=== PATIENT | female | born 1975 | race Caucasian/White ===

== ENCOUNTER → 2018-05-24 14:22 | Outpatient (CLI) | payer OTHER, SELFPAY ==
--- NOTE | 2018-05-24 | DI.MRI.S_ITS ---
PROCEDURE: MR CERVICAL SPINE WO CON INDICATIONS: CERVICALGIA TECHNIQUE: Noncontrast sagittal T1 spin echo and T2 fast spin echo, sagittal STIR, foraminal oblique sagittal T2 fast spin echo, and axial gradient echo or T2 fast spin echo through the cervical spine. COMPARISON: None. FINDINGS: Image quality: Diagnostic, with note made of motion artifact. Alignment and Curvature: There is normal bony alignment. Bone Marrow: Marrow demonstrates normal overall signal. Spinal Cord: Visualized spinal cord has normal size and signal. No cerebellar tonsillar herniation. Paraspinous Soft Tissues: No paravertebral masses. Prevertebral soft tissues are normal in thickness. C2-C3: Normal appearance. C3-C4: The disc height is well-preserved. Loss of disc signal is seen at this level. A mild degree of generalized disc osteophyte complex is seen. Mild facet joint hypertrophy is seen. Mild bilateral neural foraminal narrowing is seen. No significant central canal narrowing is seen. C4-C5: Mild loss of disc height is seen. Loss of disc signal is seen. A mild degree of generalized disc osteophyte complex is seen. There is moderate right-sided and mild left-sided neural foraminal narrowing seen. Minimal central canal narrowing is seen at this level. C5-C6: Mild loss of disc height is seen. Loss of disc signal is seen. Mild to moderate disc osteophyte complex is seen, which is eccentric to the left. There is a focal central/left disc osteophyte protrusion, as on series 5 image 31. Mild bilateral neural foraminal narrowing is seen. Moderate central canal narrowing is seen, with minimal mass effect upon the ventral spinal cord. C6-C7: Normal appearance. C7-T1: Normal appearance. IMPRESSION: Cervical spine degenerative changes are seen, which are overall most prominent at the C5-C6 level, where there is a central/left disc osteophyte protrusion. Dictated by: Juan Pablo Gonzalez M.D. on 05/24/2018 at 14:51 Approved by: Juan Pablo Gonzalez M.D. on 05/24/2018 at 14:57
== END ==
PROVIDERS: Visit Provider General Practice
DX: M50.322 Other cervical disc degeneration at C5-C6 level (principal)
CPT/HCPCS: 72141

== ENCOUNTER 2018-10-29 20:37 | Emergency (ER) | payer OTHER, SELFPAY ==
--- NOTE | 2018-10-29 20:41 | ED.ARRPALP ---
HPI - Arrhythmia/Palpitations <Ariella Reyes PA-C - Last Filed: 10/29/18 21:53> General Chief Complaint: Arrhythmia/Palpitations Stated Complaint: says signs of tachycardia Time Seen by Provider: 10/29/18 20:39 Source: patient Mode of arrival: ambulatory Limitations: no limitations History of Present Illness HPI narrative: This 43-year-old female comes in due to tachycardia. She states that she saw a neurologist at [facility] today due to neck injury that occurred in April and was told that her heart rate was high, about 125 all day. She states she had a pain management appointment about an hour later and heart rate was down a little bit, 109-116 range. She states that she did not take her Lyrica and Flexeril earlier due to needing to drive to her appointments as they can make her sleepy. She states that when she got home her heart rate was 90-low 100 range, and better now that she took her medications a few hours ago, however she called the nurse line and they told her this needed to be evaluated within 8 hr so came here for testing. She states that other than feeling somewhat more tired lately, she does not have any new symptoms. She states that she has neck pain and some headache/pressure. She gets that with her neck injury and not unusual, also thinks not taking her medicines earlier probably contributes. She states that before her neck injury, she had a resting heart rate in the 50s, however states she has gained about 60 lb due to medications and inability to exercise as usual. She is otherwise healthy, denies any possibility of and has implant in her arm. Denies any chest pain, palpitations (noted on her fit bit and from taking her pulse), or dyspnea. She has not had any new pain or swelling in her extremities. She does have some chronic tingling in her fingers after the neck injury. Regular medications include nexplanon implant, Lyrica 75 mg t.i.d., nortriptyline 50 mg HS, and Flexeril t.i.d. She has no family history of early heart disease. There is a family history of blood clots in her sister in the setting of lower extremity fractures and immobility with complications, no others. Review of Systems <Ariella Reyes PA-C - Last Filed: 10/29/18 21:53> Review of Systems ROS Unobtainable: All systems reviewed & are unremarkable except as noted in HPI and below PFSH <JIMBO Rivera Last Filed: 10/29/18 21:53> Medical History History of neck injury (Chronic) Surgical History Status post lumbar spinal fusion (Chronic) Family History Other No pertinent family history Family History Other No pertinent family history Comment: Never smoker, ETOH or street drug Exam <Ariella Reyes PA-C - Last Filed: 10/29/18 21:53> Narrative Exam Narrative: GENERAL APPEARANCE: Patient sitting comfortably, in no distress. HEENT: PERRL, EOMI NECK/THYROID: Neck supple, no JVD. LUNGS: Clear to auscultation bilaterally. HEART: Regular rate and rhythm without murmur, normal S1, S2, no S3 or S4. ABDOMEN: Soft, NT, ND, + BS x 4 quadrants EXTREMITIES: No cyanosis or edema. No calf tenderness NEUROLOGIC: Alert and oriented, normal speech, gait and coordination. Initial Vital Signs Initial Vital Signs: Vital Signs Pulse Rate 88 10/29/18 21:44 Respiratory Rate 18 10/29/18 21:44 Blood Pressure 114/76 10/29/18 21:44 Pulse Oximetry 98 10/29/18 21:44 <Amren Lynn DO - Last Filed: 10/29/18 22:39> Initial Vital Signs Initial Vital Signs: Vital Signs Pulse Rate 88 10/29/18 21:44 Respiratory Rate 18 10/29/18 21:44 Blood Pressure 114/76 10/29/18 21:44 Pulse Oximetry 98 10/29/18 21:44 Course <Ariella Reyes PA-C - Last Filed: 10/29/18 21:53> Additional Information: Patient's pulse rates were in the 70s-80s range after walking through the department when initially put on the monitor. She has been completely asymptomatic, this was noted coincidentally at her appointments today. This coincides with her being off of her p.m. doses of Lyrica and Flexeril, and may correlate with stress of her appointments and increased pain related to that. Advised continuing her usual medications and following up with [facility] in the next 1-2 days for recheck as she may need further workup if symptoms persist. Also reviewed need to return if acute changes, and she is agreeable with this plan. Orders Ordered: ED Orders 10/29/18 20:44 EKG-12 Lead Stat 10/29/18 21:00 Basic Metabolic Panel Stat Complete Blood Count AUTO DIFF Stat Magnesium Stat Vital Signs - 8 hr 10/29/18 21:44 Pulse Rate 88 Respiratory Rate 18 Blood Pressure 114/76 Pulse Oximetry 98 <Armen Lynn DO - Last Filed: 10/29/18 22:39> Orders Ordered: ED Orders 10/29/18 20:44 EKG-12 Lead Stat 10/29/18 21:00 Basic Metabolic Panel Stat Complete Blood Count AUTO DIFF Stat Magnesium Stat Vital Signs - 8 hr 10/29/18 21:44 Pulse Rate 88 Respiratory Rate 18 Blood Pressure 114/76 Pulse Oximetry 98 MDM - Arrhythmia/Palpitations <Ariella Reyes PA-C - Last Filed: 10/29/18 21:53> Lab Data Attestation: I reviewed the patient's lab results. Result diagrams: 10/29/18 21:00 10/29/18 21:00 Lab Results 10/29/18 10/29/18 Range/Units 21:00 21:00 WBC 8.2 (4.5-11.0) X10^3/uL RBC 4.41 (4.0-5.2) X10^6/uL Hgb 13.5 (12.0-16.0) g/dL Hct 41.2 (36-46) % MCV 93.3 (80-100) fL MCH 30.6 (26-34) PG MCHC 32.7 (30-36) % RDW 12.8 (11.6-14.8) % Plt Count 325 (150-400) X10^3/uL Neut % (Auto) 56.2 (50-75) % Lymph % (Auto) 33.2 (25-40) % Fajardo % (Auto) 8.0 (3-14) % Eos % (Auto) 1.7 L (2-4) % Baso % (Auto) 0.9 (0-2) % Neut # (Auto) 4600 (6575-6213) /uL Lymph # (Auto) 2700 (2988-5758) /uL Fajardo # (Auto) 700 (0-900) /uL Eos # (Auto) 100 (0-450) /uL Baso # (Auto) 100 (0-100) /uL Sodium 138 (137-145) mmol/L Potassium 4.0 (3.4-5.1) mmol/L Chloride 104 (98-107) mmol/L Carbon Dioxide 26 (22-32) mmol/L BUN 18 H (7-17) mg/dL Creatinine 0.80 (0.52-1.04) mg/dL Estimated GFR > 60.0 (>60) mL/min BUN/Creatinine Ratio 22.5 H (6-22) Glucose 96 (70-100) mg/dL Calcium 9.0 (8.4-10.2) mg/dL Magnesium 2.0 (1.6-2.3) mg/dL Point of Care Testing Test Results Negative Urine Dip Bedside Urine Glucose Negative Bedside Urine Bilirubin - Negative Bedside Urine Ketone - Negative Urine Specific Quincy 1.020 Bedside Urine Occult Blood - Negative Bedside Urine pH 6.0 Bedside Urine Protein - Negative Bedside Urine Urobilinogen - Negative Bedside Urine Nitrite - Negative Bedside Urine Leukocytes - Negative Esterase ECG Data Attestation: I personally reviewed and interpreted this ECG as follows: (Normal sinus rhythm , rate 86, isoelectric left axis) Prior ECG tracings: not available for review <Armen Lynn DO - Last Filed: 10/29/18 22:39> Lab Data Lab Results 10/29/18 10/29/18 Range/Units 21:00 21:00 WBC 8.2 (4.5-11.0) X10^3/uL RBC 4.41 (4.0-5.2) X10^6/uL Hgb 13.5 (12.0-16.0) g/dL Hct 41.2 (36-46) % MCV 93.3 (80-100) fL MCH 30.6 (26-34) PG MCHC 32.7 (30-36) % RDW 12.8 (11.6-14.8) % Plt Count 325 (150-400) X10^3/uL Neut % (Auto) 56.2 (50-75) % Lymph % (Auto) 33.2 (25-40) % Fajardo % (Auto) 8.0 (3-14) % Eos % (Auto) 1.7 L (2-4) % Baso % (Auto) 0.9 (0-2) % Neut # (Auto) 4600 (1408-9929) /uL Lymph # (Auto) 2700 (0566-4465) /uL Fajardo # (Auto) 700 (0-900) /uL Eos # (Auto) 100 (0-450) /uL Baso # (Auto) 100 (0-100) /uL Sodium 138 (137-145) mmol/L Potassium 4.0 (3.4-5.1) mmol/L Chloride 104 (98-107) mmol/L Carbon Dioxide 26 (22-32) mmol/L BUN 18 H (7-17) mg/dL Creatinine 0.80 (0.52-1.04) mg/dL Estimated GFR > 60.0 (>60) mL/min BUN/Creatinine Ratio 22.5 H (6-22) Glucose 96 (70-100) mg/dL Calcium 9.0 (8.4-10.2) mg/dL Magnesium 2.0 (1.6-2.3) mg/dL Point of Care Testing Test Results Negative Urine Dip Bedside Urine Glucose Negative Bedside Urine Bilirubin - Negative Bedside Urine Ketone - Negative Urine Specific Quin[place] 1.020 Bedside Urine Occult Blood - Negative Bedside Urine pH 6.0 Bedside Urine Protein - Negative Bedside Urine Urobilinogen - Negative Bedside Urine Nitrite - Negative Bedside Urine Leukocytes - Negative Esterase Discharge Plan Departure Patient Disposition: Home Clinical Impression: Sinus tachycardia Discharge Date/Time: 10/29/18 21:45 Interventions: ED Discharge Assessment Last Done: 10/29/18 21:44 Instructions: DI for Tachycardia Activity Restrictions/Additional Instructions: The reason for your faster heart rate especially earlier today is not clear. This may be a natural response to not being on your usual dose of pain medications with increased pain and the stress of your appointments. There was no acute problem found on your EKG or lab work, and I think this will be easier to determine when you are back on your usual medication doses for a day. As we talked about, you should return if you have any new symptoms such as chest discomfort or palpitations, chest pain or difficulty breathing. Otherwise, please follow-up with [facility] in a couple of days as you may need further lab work and testing if you do have persistent fast heart rate. Please take the copy of the EKG I gave you to your appointment Referrals: [facility] [Provider Group] <Armen Lynn, DO - Last Filed: 10/29/18 22:39> Cosign ED Attending Cosvinceature Attestation: I was immediately available in the department for consultation. Documentation has been reviewed. I agree with assessment and plan.
[2018-10-29 21:09] LABS: Add Manual Diff / Slide Review NO; Basophils Absolute Auto 100 /uL (0-100); Basophils Percent Auto 0.9 % (0-2); Eosinophils Absolute Auto 100 /uL (0-450); Eosinophils Percent Auto 1.7 % (2-4); Hematocrit 41.2 % (36-46); Hemoglobin 13.5 g/dL (12.0-16.0); Lymphocytes Absolute Auto 2700 /uL (1100-4500); Lymphocytes Percent Auto 33.2 % (25-40); Mean Corpuscular HGB Conc 32.7 % (30-36); Mean Corpuscular Hemoglobin 30.6 PG (26-34); Mean Corpuscular Volume 93.3 fL (80-100); Monocytes Absolute Auto 700 /uL (0-900); Neutrophils Absolute Auto 4600 /uL (1500-7000); Neutrophils Percent Auto 56.2 % (50-75); Platelet Count 325 X10^3/uL (150-400); Red Blood Cell Count 4.41 X10^6/uL (4.0-5.2); Red Cell Distribution Width 12.8 % (11.6-14.8); White Blood Cell Count 8.2 X10^3/uL (4.5-11.0)
[2018-10-29 21:19] LABS: BUN Creatinine Ratio 22.5 (6-22); Blood Urea Nitrogen 18 mg/dL (7-17); Carbon Dioxide 26 mmol/L (22-32); Chloride 104 mmol/L (98-107); Estimated Glomerular Filt Rate > 60.0 mL/min (>60); Glucose 96 mg/dL (70-100); HEMOLYSIS < 15 (0-50); Sodium 138 mmol/L (137-145)
[2018-10-29 21:44] VITALS: BP 114/76; PULSE 88; RESP 18; O2SAT 98
== END 2018-10-29 21:45 | disposition home or self-care (01) ==
PROVIDERS: Emergency Provider Internal Medicine
DX: R00.0 Tachycardia, unspecified (principal)
CPT/HCPCS: 36415; 80048; 81003; 81025; 83735; 85025; 93005; 99283; 99284

== ENCOUNTER → 2019-07-02 14:53 | Outpatient (CLI) | payer OTHER, SELFPAY ==
--- NOTE | 2019-07-02 | DI.MG.S_ITS ---
BILATERAL DIGITAL SCREENING MAMMOGRAM 3D/2D WITH CAD: 07/02/2019 CLINICAL: Routine screening. Comparison is made to exams dated: 08/11/2014 mammogram, 03/09/2015 mammogram - [facility], and 04/09/2017 mammogram - [facility]. The tissue of both breasts is heterogeneously dense. This may lower the sensitivity of mammography. Current study was also evaluated with a Computer Aided Detection (CAD) system. There are new grouped fine calcifications in the right breast at 12 o'clock middle depth. No other significant masses, calcifications, or other findings are seen in either breast. IMPRESSION: INCOMPLETE: NEEDS ADDITIONAL IMAGING EVALUATION The new grouped fine calcifications in the right breast are indeterminate. Mediolateral, spot magnification, and additional views are recommended. This exam was interpreted at Station ID: [id number]. NOTE: For mammograms, a report in lay terms will be sent to the patient. Approximately 15% of breast malignancies will not be visualized mammographically. In the management of a palpable breast mass, a negative mammogram must not discourage biopsy of a clinically suspicious lesion. Electronically Signed By: Kingsley bedoya/sandrita:07/02/2019 16:23:14 letter sent: Additional Imaging Needed ACR BI-RADS Category 0: Incomplete [id number]
== END ==
PROVIDERS: Visit Provider General Practice
DX: Z12.31 Encounter for screening mammogram for malignant neoplasm of breast (principal)
CPT/HCPCS: 77063; 77067

== ENCOUNTER → 2019-07-29 12:17 | Outpatient (CLI) | payer OTHER, SELFPAY ==
--- NOTE | 2019-07-29 | DI.MG.S_ITS ---
UNILATERAL RIGHT DIGITAL DIAGNOSTIC MAMMOGRAM 3D/2D WITH ADDITIONAL VIEWS: 07/29/2019 CLINICAL: Additional evaluation requested from prior study. Comparison is made to exams dated: 07/02/2019 mammogram - [facility], 04/09/2017 mammogram - [facility], and 03/09/2015 mammogram - [facility]. The tissue of right breast is heterogeneously dense. This may lower the sensitivity of mammography. There are new grouped fine round calcifications in the right breast at 12 o'clock middle depth. No other significant masses or calcifications are seen in the breast. IMPRESSION: INCOMPLETE: NEEDS ADDITIONAL IMAGING EVALUATION The new grouped fine round calcifications in the right breast are indeterminate. An ultrasound is recommended and will immediately follow. This exam was interpreted at Station ID: [id number]. NOTE: For mammograms, a report in lay terms will be sent to the patient. Approximately 15% of breast malignancies will not be visualized mammographically. In the management of a palpable breast mass, a negative mammogram must not discourage biopsy of a clinically suspicious lesion. Electronically Signed By: Vinod Paez M.D. slc/:07/29/2019 13:47:20 ACR BI-RADS Category 0: Incomplete 3340F
--- NOTE | 2019-07-29 | DI.US.S_ITS ---
LIMITED ULTRASOUND OF RIGHT BREAST: 07/29/2019 CLINICAL: Patient returns today to evaluate a focal asymmetry in the right breast. Comparison is made to exams dated: 07/29/2019 mammogram, 07/02/2019 mammogram - , 04/09/2017 mammogram - [facility], 03/09/2015 mammogram, and 08/11/2014 mammogram - [facility]. Real-time ultrasound of the right breast 12 o'clock region was performed. Wright scale images of the real-time examination were reviewed. No significant abnormalities were seen sonographically in the right breast in the region of new calcifications seen on mammogram. IMPRESSION: PROBABLY BENIGN No sonographic abnormality. A follow-up mammogram in 6 months is recommended to demonstrate stability of the new fine and round grouped calcifications in the right breast. Exam result and recommendation were conveyed to the patient by the creative engagement director. This exam was interpreted at Station ID: [id number]. Electronically Signed By: Vinod Paez M.D. slc/:07/29/2019 13:52:07 letter sent: Followup Recommended Ultrasound BI-RADS: 3 Probably benign
== END ==
PROVIDERS: Visit Provider General Practice
DX: R92.8 Other abnormal and inconclusive findings on diagnostic imaging of breast (principal); R92.1 Mammographic calcification found on diagnostic imaging of breast
CPT/HCPCS: 76642; 77065; G0279

== ENCOUNTER 2019-11-20 08:15 | Outpatient (RCR) | payer OTHER, SELFPAY ==
--- NOTE | 2019-07-30 16:29 | PT.OIE ---
Current Diagnoses Sprain of ligaments of cervical spine, initial encounter (07/30/19) Past Medical History (Last Updated 10/29/18 @ 20:59 by Ariella Reyes PA-C) History of neck injury (Chronic) Past Surgical History (Last Updated 10/29/18 @ 20:59 by Ariella Reyes PA-C) Status post lumbar spinal fusion (Chronic) Visit Care Team Role Provider Type Pelon Bates MD Primary Care Provider Non-Staff Specialty: Family Practice Address: [address] [place] [address], [id number] Email: Judie Osorio MD Attending Provider Non-Staff Specialty: Medical Address: [address] [place] [address], [id number] Email: Physical Therapy Initial Evaluation PT-OP-A Visit Information Start: 07/30/19 12:16 Freq: Status: Active Protocol: Document 07/30/19 12:20 MB (Rec: 07/30/19 13:05 MB [id number]) Out-Patient Physical Therapy Visit Information Visit Information Visit Type Initial Evaluation Visit Note 1 eval, 12 visits Visit Start Time 12:20 Visit Stop Time 13:00 Total Visit Minutes 40 Visit Number 09/22 PT-OP-B Current Condition Start: 07/30/19 12:16 Freq: Status: Active Protocol: Document 07/30/19 12:20 MB (Rec: 07/30/19 13:05 MB [id number]) Current Condition History of Current Condition Onset Date 05/01/2018 History of Current Condition Pt went to DO for work-up for migraines. She had high velocity manipulation to her cervical spine and then started having severe neck pain on 05/11/18. She went to the ED and had a pain injection and Oxycontin. She started having vertigo. She did not drive much for 2 months. 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 She has been doing rehab for her neck strength. In May 2018, she started have right hand paresthesia and weakness. She ended up having ulnar nerve transposition 11/26. She then went to OT and got her strength back. She had ablation of C3-7 nerve roots to help with pain relief and increase neck ROM. Her headaches are not better. Her neck ROM is better. She now knows that neck is causing migraines. She is seeing a pain specialist and he performed the ablation 06/02/19. He suggested pt see vestibular PT . Her migraine symptoms are: pressure occiput and wrap up over her head and pull on her brain. She feels her teeth quite often. Her Lyrica was doubled. She has constant SIFUENTES. Pt has nightmares about cracking of joints with relation to her injury. Sleeping is fitful. Bending over makes her the most dizzy. She states that she feels the dizziness when she goes to get back up. She feels like her head gets overpressured. Changing positions can get her. Leaning too far forward is troublesome. She feels like she needs to push herself into something to get tactile sensation. She feels like she needs to get a hold of herself. Pt reports pain rated 2-4 in her right arm and 4-7 in her neck. Jarring in car hurts her . She does report light- headedness. Her eyes feel tired. She had some floaters in the past. She denies hearing changes, tinnitus and dizziness rolling in the bed. She has sinus issues. She reports jaw tightness. She takes a B12 supplement and she had a deficiency. Pt reports she has trust issues with providers after the DO manipulation. She has occ numbness and tingling in right arm. She has shoulder lock-ups. Prior Treatments and Tests OT, PT MRI head and pt reports negative MRI/MRA head and neck with and without contrast Treatment Goals Patient/Caregiver Goals To get better, get back to work PT-OP-C Subjective Start: 07/30/19 12:16 Freq: Status: Active Protocol: Document 07/30/19 12:20 MB (Rec: 07/30/19 16:09 MB [id number]) Patient Questionnaires Dizziness Handicap Inventory DHI Functional Impairment 40 to 59% Impaired (Score 40- 59) OP-PT Pain Assessment Comments Pain Comments See history of current condition for pain comments PT-OP-K Range of Motion Start: 07/30/19 12:16 Freq: Status: Active Protocol: Document 07/30/19 12:20 MB (Rec: 07/30/19 16:27 MB [id number]) Cervical Spine Range of Motion Cervical Spine Active Flexion 30 Extension 15 Rotation Left 40 Rotation Right 45 Comments Pt reports 5-6/10 pain with cervical extensio. She presents with left SB posture at rest that increases with left cervical rotation PT-OP-M Strength Start: 07/30/19 12:16 Freq: Status: Active Protocol: Document 07/30/19 12:20 MB (Rec: 07/30/19 16:27 MB [id number]) Shoulder Strength Shoulder Manual Muscle Testing Left Flexion 5 Normal Abduction (C5) 5 Normal Right Flexion 4 Good Abduction (C5) 4 Good Elbow/Forearm Strength Elbow and Forearm Manual Muscle Testing Left Flexion (C6) 5 Normal Extension (C7) 5 Normal Pronation 5 Normal Supination 5 Normal Right Flexion (C6) 5 Normal Extension (C7) 5 Normal Pronation 4 Good Supination 4 Good Wrist Strength Wrist Manual Muscle Testing Left Flexion (C7) 5 Normal Extension (C6) 5 Normal Right Flexion (C7) 5 Normal Extension (C6) 4 Good PT-OP-O Vestibular Start: 07/30/19 16:27 Freq: Status: Active Protocol: Document 07/30/19 12:20 MB (Rec: 07/30/19 16:29 MB [id number]) Vestibular Assessment Visual Testing Smooth Pursuits Horizontal Normal Smooth Pursuits Vertical Normal Saccades Horizontal Normal Gaze Evoked Nystagmus With Fixation Negative Convergence Test Impaired Spontaneous Nystagmus Negative Comments Vestibular Comments Pt denies tinnitus and hearing changes. She does state that she has sinus issues and teeth pain, mostly upper teeth. She states she clenches her jaw. PT-OP-T Assessment and Plan Start: 07/30/19 12:16 Freq: Status: Active Protocol: Document 07/30/19 12:20 MB (Rec: 07/30/19 16:05 MB [id number]) Physical Therapy Assessment Rehab Potential Rehabilitation Potential Fair Evaluation Complexity Number of Personal Factors/Comorbidities 3 or More Number of Body Systems Impaired 4 or More Clinical Presentation at Evaluation Unstable Impairments Impairments Activity Tolerance,Balance, Coordination,Pain,Posture,ROM, Strength,Vestibular Other Impairments Decreased affect, inability to perform full work duties, occ difficulty driving d/t symptoms, taking multiple medications. Body systems include musculoskeletal, vestibular, psychosocial, neurological s/p nerve ablation. Her clinical picture is evolving to unstable. Goals 6 Manager Architecture Goal (LTG) Pt will present with right shoulder flexion and abduction and right wrist supination, pronation and extension strength to 5/5 by 09/29/19. LTG Duration 8 weeks 5 [facility] Goal (LTG) Pt will perform progressive HEP including postural, VOR, intrascapular, core and shoulder strengthening, breathing and relaxation and balance exercises by 09/29/19. LTG Duration 8 weeks 4 Manager Architecture Goal (LTG) Pt will report a 50% improvement in dizziness sxs by 09/29/19. LTG Duration 8 weeks 3 Manager Architecture Goal (LTG) Pt will report a 50% improvement in neck pain by . LTG Duration 8 weeks 2 Manager Architecture Goal (LTG) Pt will perform WNLs on a standardized balance test by . LTG Duration 8 weeks 1 Impairment DHI reflects moderate perception of handicap Manager Architecture Goal (LTG) Pt will present with an improved DHI score to reflect no more than mild perception of handicap by 09/29/19. LTG Duration 8 weeks Assessment Summary Assessment Pt is a 44 y/o female presenting with complicated onset of migraines, neck pain, right UE pain and improving paresthesia and dizziness. She reports neck and UE symptoms and dizziness started after she was treated with a high velocity manipulation to her neck. She has had extensive medical work-ups and has received a right ulnar nerve surgery as well as reports of cervical spine nerve ablation. This date, PT does not have any dxs or op notes available. PT assessment triaged this date. Pt present with B dilated pupils, right greater than left. She has left greater than right convergence reduction with oculomotor testing. Finger to nose and saccades are normal. Pt presents with R UE weakness. Given her sxs of dizziness with bending over and standing back up, will check for orthostatics in future treatment dates. Will assess balance with CTSIB and other tests as she can tolerate. Pt reports she has trouble trusting providers since her injury and this therapist will introduce VOR work as appropriate. She will benefit from PT for vestibular intervention, gentle fascial intervention, progressive exercise including VOR, postural, strengthening, relaxation and breathing. She states that she does not really have dizziness with rolling in bed and so PT is less likely concerned about BPPV. Will con't to monitor her sxs. Physical Therapy Plan Frequency and Duration Frequency of Treatment 2x/Week Duration of Treatment 8 weeks Plan of Care Start Date 07/30/19 Plan of Care End Date 09/29/19 Therapeutic Interventions Therapeutic Interventions Balance Training,Canalithic Repositioning,Coordination Training,Home Exercise Program ,Manual Therapy,Neuromuscular Re-education,Patient/Caregiver Education,Self-Care/Home Management,Sensory Integration ,Soft Tissue Mobilization, Taping,Therapeutic Exercises, Vestibular Rehabilitation Next Visit Focus/Plan Next Note Type Treatment Note Next Visit Plan CTSIB and check orthostatic BP
--- NOTE | 2019-08-04 12:13 | PT.OTN ---
Current Diagnoses Sprain of ligaments of cervical spine, initial encounter (08/04/19) Physical Therapy Treatment Note PT-OP-A Visit Information Start: 07/30/19 12:16 Freq: Status: Active Protocol: Document 08/04/19 10:27 MB (Rec: 08/04/19 12:13 MB [id number]) Out-Patient Physical Therapy Visit Information Visit Information Visit Type Treatment Note Visit Start Time 10:27 Visit Stop Time 11:20 Total Visit Minutes 53 Visit Number 10/23 PT-OP-B Current Condition Start: 07/30/19 12:16 Freq: Status: Active Protocol: Document 07/30/19 12:20 MB (Rec: 07/30/19 13:05 MB [id number]) Current Condition History of Current Condition Onset Date 05/01/2018 History of Current Condition Pt went to DO for work-up for migraines. She had high velocity manipulation to her cervical spine and then started having severe neck pain on 05/11/18. She went to the ED and had a pain injection and Oxycontin. She started having vertigo. She did not drive much for 2 months. 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 She has been doing rehab for her neck strength. In May 2018, she started have right hand paresthesia and weakness. She ended up having ulnar nerve transposition 11/26. She then went to OT and got her strength back. She had ablation of C3-7 nerve roots to help with pain relief and increase neck ROM. Her headaches are not better. Her neck ROM is better. She now knows that neck is causing migraines. She is seeing a pain specialist and he performed the ablation 06/02/19. He suggested pt see vestibular PT . Her migraine symptoms are: pressure occiput and wrap up over her head and pull on her brain. She feels her teeth quite often. Her Lyrica was doubled. She has constant SIFUENTES. Pt has nightmares about cracking of joints with relation to her injury. Sleeping is fitful. Bending over makes her the most dizzy. She states that she feels the dizziness when she goes to get back up. She feels like her head gets overpressured. Changing positions can get her. Leaning too far forward is troublesome. She feels like she needs to push herself into something to get tactile sensation. She feels like she needs to get a hold of herself. Pt reports pain rated 2-4 in her right arm and 4-7 in her neck. Jarring in car hurts her . She does report light- headedness. Her eyes feel tired. She had some floaters in the past. She denies hearing changes, tinnitus and dizziness rolling in the bed. She has sinus issues. She reports jaw tightness. She takes a B12 supplement and she had a deficiency. Pt reports she has trust issues with providers after the DO manipulation. She has occ numbness and tingling in right arm. She has shoulder lock-ups. Prior Treatments and Tests OT, PT MRI head and pt reports negative MRI/MRA head and neck with and without contrast Treatment Goals Patient/Caregiver Goals To get better, get back to work PT-OP-C Subjective Start: 07/30/19 12:16 Freq: Status: Active Protocol: Document 08/04/19 10:27 MB (Rec: 08/04/19 12:13 MB [id number]) OP-PT Subjective Patient Comments Patient Comments Pt states that she had a pretty low [place] weekend. PT-OP-K Range of Motion Start: 07/30/19 12:16 Freq: Status: Active Protocol: Document 07/30/19 12:20 MB (Rec: 07/30/19 16:27 MB [id number]) Cervical Spine Range of Motion Cervical Spine Active Flexion 30 Extension 15 Rotation Left 40 Rotation Right 45 Comments Pt reports 5-6/10 pain with cervical extensio. She presents with left SB posture at rest that increases with left cervical rotation PT-OP-M Strength Start: 07/30/19 12:16 Freq: Status: Active Protocol: Document 07/30/19 12:20 MB (Rec: 07/30/19 16:27 MB [id number]) Shoulder Strength Shoulder Manual Muscle Testing Left Flexion 5 Normal Abduction (C5) 5 Normal Right Flexion 4 Good Abduction (C5) 4 Good Elbow/Forearm Strength Elbow and Forearm Manual Muscle Testing Left Flexion (C6) 5 Normal Extension (C7) 5 Normal Pronation 5 Normal Supination 5 Normal Right Flexion (C6) 5 Normal Extension (C7) 5 Normal Pronation 4 Good Supination 4 Good Wrist Strength Wrist Manual Muscle Testing Left Flexion (C7) 5 Normal Extension (C6) 5 Normal Right Flexion (C7) 5 Normal Extension (C6) 4 Good PT-OP-O Vestibular Start: 07/30/19 16:27 Freq: Status: Active Protocol: Document 07/30/19 12:20 MB (Rec: 07/30/19 16:29 MB [id number]) Vestibular Assessment Visual Testing Smooth Pursuits Horizontal Normal Smooth Pursuits Vertical Normal Saccades Horizontal Normal Gaze Evoked Nystagmus With Fixation Negative Convergence Test Impaired Spontaneous Nystagmus Negative Comments Vestibular Comments Pt denies tinnitus and hearing changes. She does state that she has sinus issues and teeth pain, mostly upper teeth. She states she clenches her jaw. PT-OP-Q Treatments Start: 07/30/19 12:16 Freq: Status: Active Protocol: Document 08/04/19 10:27 MB (Rec: 08/04/19 12:13 MB [id number]) Therapeutic Activity Therapeutic Activity Assessment orthostatics, log roll Comments +2 asst for safety with getting up quickly. See assessment comments for findings. Modified CTSIB this date with most problems when closing eyes Self-Care/Home Management Treatment Education Other Education Provided handouts and extensive ed: orthostatic hypotension, increase non- caffeinated fluid intake and decrease caffeine intake; Counterstrain benefits--need to review further before treatment and will do this when treatment initiated; VOR, how vestibular system works with balance, brain and eyes, why see a PT for dizziness and the VOR PT-OP-T Assessment and Plan Start: 07/30/19 12:16 Freq: Status: Active Protocol: Document 08/04/19 10:27 MB (Rec: 08/04/19 12:13 MB [id number]) Physical Therapy Assessment Rehab Potential Rehabilitation Potential Fair Evaluation Complexity Number of Personal Factors/Comorbidities 3 or More Number of Body Systems Impaired 4 or More Clinical Presentation at Evaluation Unstable Impairments Impairments Activity Tolerance,Balance, Coordination,Pain,Posture,ROM, Strength,Vestibular Other Impairments Decreased affect, inability to perform full work duties, occ difficulty driving d/t symptoms, taking multiple medications. Body systems include musculoskeletal, vestibular, psychosocial, neurological s/p nerve ablation. Her clinical picture is evolving to unstable. Goals 6 Mixed Animal Veterinarian Goal (LTG) Pt will present with right shoulder flexion and abduction and right wrist supination, pronation and extension strength to 5/5 by 09/29/19. LTG Duration 8 weeks 5 Senior Living Goal (LTG) Pt will perform progressive HEP including postural, VOR, intrascapular, core and shoulder strengthening, breathing and relaxation and balance exercises by 09/29/19. LTG Duration 8 weeks 4 Senior Living Goal (LTG) Pt will report a 50% improvement in dizziness sxs by 09/29/19. LTG Duration 8 weeks 3 Mixed Animal Veterinarian Goal (LTG) Pt will report a 50% improvement in neck pain by . LTG Duration 8 weeks 2 Mixed Animal Veterinarian Goal (LTG) Pt will perform WNLs on a standardized balance test by . LTG Duration 8 weeks 1 Impairment DHI reflects moderate perception of handicap Mixed Animal Veterinarian Goal (LTG) Pt will present with an improved DHI score to reflect no more than mild perception of handicap by 09/29/19. LTG Duration 8 weeks Assessment Summary Assessment Modified CTSIB: Romberg normal ; Romberg eyes closed with LOB to the right after 3 sec and PT asst to prevent fall; increased imbalance unstable surface; EO when LOB when tried eyes closed. Orthostatic assessment: L proximal UE with BP and HR: supine: 104/75 , 59; standin/89, 75 and pt reports increased pressure head; standing 30 sec 111/83, 82; standing 1' 99/83, 89; standing 90 sec: 104/86, 87; standing 2': 107/83, 77. Pt drinks a lot of caffeine at home. She likes coffee. VOR Head Thrust: positive for hypofunction B, greater on the left. Pt has multi-factorial causes of dizziness: fluctuating BP, VOR hypofunction and likely cervicogenic given nature of onset of symptoms as well as some trauma components. Con't vestibular work-up and initiate breathing and relaxation exercises. Physical Therapy Plan Frequency and Duration Frequency of Treatment 2x/Week Duration of Treatment 8 weeks Plan of Care Start Date 07/30/19 Plan of Care End Date 09/29/19 Therapeutic Interventions Therapeutic Interventions Balance Training,Canalithic Repositioning,Coordination Training,Home Exercise Program ,Manual Therapy,Neuromuscular Re-education,Patient/Caregiver Education,Self-Care/Home Management,Sensory Integration ,Soft Tissue Mobilization, Taping,Therapeutic Exercises, Vestibular Rehabilitation Next Visit Focus/Plan Next Note Type Treatment Note Next Visit Plan Progress HEP, checking VOR, initiate relaxation exercises
--- NOTE | 2019-08-06 11:18 | PT.OTN ---
Current Diagnoses Sprain of ligaments of cervical spine, initial encounter (08/06/19) Physical Therapy Treatment Note PT-OP-A Visit Information Start: 07/30/19 12:16 Freq: Status: Active Protocol: Document 08/06/19 10:32 MB (Rec: 08/06/19 11:17 MB [id number]) Out-Patient Physical Therapy Visit Information Visit Information Visit Type Treatment Note Visit Start Time 10:32 Visit Stop Time 11:12 Total Visit Minutes 40 Visit Number 11/20 PT-OP-B Current Condition Start: 07/30/19 12:16 Freq: Status: Active Protocol: Document 07/30/19 12:20 MB (Rec: 07/30/19 13:05 MB [id number]) Current Condition History of Current Condition Onset Date 05/01/2018 History of Current Condition Pt went to DO for work-up for migraines. She had high velocity manipulation to her cervical spine and then started having severe neck pain on 05/11/18. She went to the ED and had a pain injection and Oxycontin. She started having vertigo. She did not drive much for 2 months. 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 She has been doing rehab for her neck strength. In May 2018, she started have right hand paresthesia and weakness. She ended up having ulnar nerve transposition 11/26. She then went to OT and got her strength back. She had ablation of C3-7 nerve roots to help with pain relief and increase neck ROM. Her headaches are not better. Her neck ROM is better. She now knows that neck is causing migraines. She is seeing a pain specialist and he performed the ablation 06/02/19. He suggested pt see vestibular PT . Her migraine symptoms are: pressure occiput and wrap up over her head and pull on her brain. She feels her teeth quite often. Her Lyrica was doubled. She has constant SIFUENTES. Pt has nightmares about cracking of joints with relation to her injury. Sleeping is fitful. Bending over makes her the most dizzy. She states that she feels the dizziness when she goes to get back up. She feels like her head gets overpressured. Changing positions can get her. Leaning too far forward is troublesome. She feels like she needs to push herself into something to get tactile sensation. She feels like she needs to get a hold of herself. Pt reports pain rated 2-4 in her right arm and 4-7 in her neck. Jarring in car hurts her . She does report light- headedness. Her eyes feel tired. She had some floaters in the past. She denies hearing changes, tinnitus and dizziness rolling in the bed. She has sinus issues. She reports jaw tightness. She takes a B12 supplement and she had a deficiency. Pt reports she has trust issues with providers after the DO manipulation. She has occ numbness and tingling in right arm. She has shoulder lock-ups. Prior Treatments and Tests OT, PT MRI head and pt reports negative MRI/MRA head and neck with and without contrast Treatment Goals Patient/Caregiver Goals To get better, get back to work PT-OP-C Subjective Start: 07/30/19 12:16 Freq: Status: Active Protocol: Document 08/06/19 10:32 MB (Rec: 08/06/19 11:18 MB [id number]) OP-PT Subjective Patient Comments Patient Comments Pt is feeling the same. She brings in diagnostics for PT. PT-OP-K Range of Motion Start: 07/30/19 12:16 Freq: Status: Active Protocol: Document 07/30/19 12:20 MB (Rec: 07/30/19 16:27 MB [id number]) Cervical Spine Range of Motion Cervical Spine Active Flexion 30 Extension 15 Rotation Left 40 Rotation Right 45 Comments Pt reports 5-6/10 pain with cervical extensio. She presents with left SB posture at rest that increases with left cervical rotation PT-OP-M Strength Start: 07/30/19 12:16 Freq: Status: Active Protocol: Document 07/30/19 12:20 MB (Rec: 07/30/19 16:27 MB [id number]) Shoulder Strength Shoulder Manual Muscle Testing Left Flexion 5 Normal Abduction (C5) 5 Normal Right Flexion 4 Good Abduction (C5) 4 Good Elbow/Forearm Strength Elbow and Forearm Manual Muscle Testing Left Flexion (C6) 5 Normal Extension (C7) 5 Normal Pronation 5 Normal Supination 5 Normal Right Flexion (C6) 5 Normal Extension (C7) 5 Normal Pronation 4 Good Supination 4 Good Wrist Strength Wrist Manual Muscle Testing Left Flexion (C7) 5 Normal Extension (C6) 5 Normal Right Flexion (C7) 5 Normal Extension (C6) 4 Good PT-OP-O Vestibular Start: 07/30/19 16:27 Freq: Status: Active Protocol: Document 07/30/19 12:20 MB (Rec: 07/30/19 16:29 MB [id number]) Vestibular Assessment Visual Testing Smooth Pursuits Horizontal Normal Smooth Pursuits Vertical Normal Saccades Horizontal Normal Gaze Evoked Nystagmus With Fixation Negative Convergence Test Impaired Spontaneous Nystagmus Negative Comments Vestibular Comments Pt denies tinnitus and hearing changes. She does state that she has sinus issues and teeth pain, mostly upper teeth. She states she clenches her jaw. PT-OP-Q Treatments Start: 07/30/19 12:16 Freq: Status: Active Protocol: Document 08/06/19 10:32 MB (Rec: 08/06/19 11:17 MB [id number]) Manual Therapy Treatment Other Other Manual Treatments Pt agrees to Counterstrain to assess and treat fascial tension: right aints lower thoracic, left aints proximal, right trigeminal; left JURADO; left DPR; right ALL. Treated stacks standard row lymphatic system; trigeminal; suboccipital release PT-OP-T Assessment and Plan Start: 07/30/19 12:16 Freq: Status: Active Protocol: Document 08/06/19 10:32 MB (Rec: 08/06/19 11:17 MB [id number]) Physical Therapy Assessment Rehab Potential Rehabilitation Potential Fair Evaluation Complexity Number of Personal Factors/Comorbidities 3 or More Number of Body Systems Impaired 4 or More Clinical Presentation at Evaluation Unstable Impairments Impairments Activity Tolerance,Balance, Coordination,Pain,Posture,ROM, Strength,Vestibular Other Impairments Decreased affect, inability to perform full work duties, occ difficulty driving d/t symptoms, taking multiple medications. Body systems include musculoskeletal, vestibular, psychosocial, neurological s/p nerve ablation. Her clinical picture is evolving to unstable. Goals 6 Validation Leader Goal (LTG) Pt will present with right shoulder flexion and abduction and right wrist supination, pronation and extension strength to 5/5 by 09/29/19. LTG Duration 8 weeks 5 Shelter Goal (LTG) Pt will perform progressive HEP including postural, VOR, intrascapular, core and shoulder strengthening, breathing and relaxation and balance exercises by 09/29/19. LTG Duration 8 weeks 4 Validation Leader Goal (LTG) Pt will report a 50% improvement in dizziness sxs by 09/29/19. LTG Duration 8 weeks 3 Shelter Goal (LTG) Pt will report a 50% improvement in neck pain by . LTG Duration 8 weeks 2 Validation Leader Goal (LTG) Pt will perform WNLs on a standardized balance test by . LTG Duration 8 weeks 1 Impairment DHI reflects moderate perception of handicap Validation Leader Goal (LTG) Pt will present with an improved DHI score to reflect no more than mild perception of handicap by 09/29/19. LTG Duration 8 weeks Assessment Summary Assessment Initiated Counterstrain this date to address fascial tension. Monitor response. Initiated diaphragmatic breathing. Pt with increased right neck treatment. Physical Therapy Plan Frequency and Duration Frequency of Treatment 2x/Week Duration of Treatment 8 weeks Plan of Care Start Date 07/30/19 Plan of Care End Date 09/29/19 Therapeutic Interventions Therapeutic Interventions Balance Training,Canalithic Repositioning,Coordination Training,Home Exercise Program ,Manual Therapy,Neuromuscular Re-education,Patient/Caregiver Education,Self-Care/Home Management,Sensory Integration ,Soft Tissue Mobilization, Taping,Therapeutic Exercises, Vestibular Rehabilitation Next Visit Focus/Plan Next Note Type Treatment Note Next Visit Plan Progress HEP, checking VOR, initiate relaxation exercises
--- NOTE | 2019-08-11 08:15 | PT.OTN ---
Current Diagnoses Sprain of ligaments of cervical spine, initial encounter (08/11/19) Physical Therapy Treatment Note PT-OP-A Visit Information Start: 07/30/19 12:16 Freq: Status: Active Protocol: Document 08/11/19 07:30 MB (Rec: 08/11/19 08:15 MB [id number]) Out-Patient Physical Therapy Visit Information Visit Information Visit Type Treatment Note Visit Start Time 07:30 Visit Stop Time 08:15 Total Visit Minutes 45 Visit Number 4/ PT-OP-B Current Condition Start: 07/30/19 12:16 Freq: Status: Active Protocol: Document 07/30/19 12:20 MB (Rec: 07/30/19 13:05 MB [id number]) Current Condition History of Current Condition Onset Date 05/01/2018 History of Current Condition Pt went to DO for work-up for migraines. She had high velocity manipulation to her cervical spine and then started having severe neck pain on 05/11/18. She went to the ED and had a pain injection and Oxycontin. She started having vertigo. She did not drive much for 2 months. 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 She has been doing rehab for her neck strength. In May 2018, she started have right hand paresthesia and weakness. She ended up having ulnar nerve transposition 11/26. She then went to OT and got her strength back. She had ablation of C3-7 nerve roots to help with pain relief and increase neck ROM. Her headaches are not better. Her neck ROM is better. She now knows that neck is causing migraines. She is seeing a pain specialist and he performed the ablation 06/02/19. He suggested pt see vestibular PT . Her migraine symptoms are: pressure occiput and wrap up over her head and pull on her brain. She feels her teeth quite often. Her Lyrica was doubled. She has constant SIFUENTES. Pt has nightmares about cracking of joints with relation to her injury. Sleeping is fitful. Bending over makes her the most dizzy. She states that she feels the dizziness when she goes to get back up. She feels like her head gets overpressured. Changing positions can get her. Leaning too far forward is troublesome. She feels like she needs to push herself into something to get tactile sensation. She feels like she needs to get a hold of herself. Pt reports pain rated 2-4 in her right arm and 4-7 in her neck. Jarring in car hurts her . She does report light- headedness. Her eyes feel tired. She had some floaters in the past. She denies hearing changes, tinnitus and dizziness rolling in the bed. She has sinus issues. She reports jaw tightness. She takes a B12 supplement and she had a deficiency. Pt reports she has trust issues with providers after the DO manipulation. She has occ numbness and tingling in right arm. She has shoulder lock-ups. Prior Treatments and Tests OT, PT MRI head and pt reports negative MRI/MRA head and neck with and without contrast Treatment Goals Patient/Caregiver Goals To get better, get back to work PT-OP-C Subjective Start: 07/30/19 12:16 Freq: Status: Active Protocol: Document 08/11/19 07:30 MB (Rec: 08/11/19 08:15 MB [id number]) OP-PT Subjective Patient Comments Patient Comments Pt states that the Counterstrain was okay. PT-OP-K Range of Motion Start: 07/30/19 12:16 Freq: Status: Active Protocol: Document 07/30/19 12:20 MB (Rec: 07/30/19 16:27 MB [id number]) Cervical Spine Range of Motion Cervical Spine Active Flexion 30 Extension 15 Rotation Left 40 Rotation Right 45 Comments Pt reports 5-6/10 pain with cervical extensio. She presents with left SB posture at rest that increases with left cervical rotation PT-OP-M Strength Start: 07/30/19 12:16 Freq: Status: Active Protocol: Document 07/30/19 12:20 MB (Rec: 07/30/19 16:27 MB [id number]) Shoulder Strength Shoulder Manual Muscle Testing Left Flexion 5 Normal Abduction (C5) 5 Normal Right Flexion 4 Good Abduction (C5) 4 Good Elbow/Forearm Strength Elbow and Forearm Manual Muscle Testing Left Flexion (C6) 5 Normal Extension (C7) 5 Normal Pronation 5 Normal Supination 5 Normal Right Flexion (C6) 5 Normal Extension (C7) 5 Normal Pronation 4 Good Supination 4 Good Wrist Strength Wrist Manual Muscle Testing Left Flexion (C7) 5 Normal Extension (C6) 5 Normal Right Flexion (C7) 5 Normal Extension (C6) 4 Good PT-OP-O Vestibular Start: 07/30/19 16:27 Freq: Status: Active Protocol: Document 07/30/19 12:20 MB (Rec: 07/30/19 16:29 MB [id number]) Vestibular Assessment Visual Testing Smooth Pursuits Horizontal Normal Smooth Pursuits Vertical Normal Saccades Horizontal Normal Gaze Evoked Nystagmus With Fixation Negative Convergence Test Impaired Spontaneous Nystagmus Negative Comments Vestibular Comments Pt denies tinnitus and hearing changes. She does state that she has sinus issues and teeth pain, mostly upper teeth. She states she clenches her jaw. PT-OP-Q Treatments Start: 07/30/19 12:16 Freq: Status: Active Protocol: Document 08/11/19 07:30 MB (Rec: 08/11/19 08:15 MB [id number]) Therapeutic Exercises Supine Exercises EFT Comments EFT for relaxation Diaphragmatic breathing Comments Started in hook lying Manual Therapy Treatment Other Other Manual Treatments Pt agrees to Counterstrain to assess and treat fascial tensionn. PT treats stacks: B TENT; B cervical sinu- vertebral; B DPR cervical. Suboccipital release afterwards. Consider reassessing vagus. PT-OP-T Assessment and Plan Start: 07/30/19 12:16 Freq: Status: Active Protocol: Document 08/11/19 07:30 MB (Rec: 08/11/19 08:15 MB [id number]) Physical Therapy Assessment Rehab Potential Rehabilitation Potential Fair Evaluation Complexity Number of Personal Factors/Comorbidities 3 or More Number of Body Systems Impaired 4 or More Clinical Presentation at Evaluation Unstable Impairments Impairments Activity Tolerance,Balance, Coordination,Pain,Posture,ROM, Strength,Vestibular Other Impairments Decreased affect, inability to perform full work duties, occ difficulty driving d/t symptoms, taking multiple medications. Body systems include musculoskeletal, vestibular, psychosocial, neurological s/p nerve ablation. Her clinical picture is evolving to unstable. Goals 6 Mcfp Goal (LTG) Pt will present with right shoulder flexion and abduction and right wrist supination, pronation and extension strength to 5/5 by 09/29/19. LTG Duration 8 weeks 5 Mcfp Goal (LTG) Pt will perform progressive HEP including postural, VOR, intrascapular, core and shoulder strengthening, breathing and relaxation and balance exercises by 09/29/19. LTG Duration 8 weeks 4 Executive Vice President And Chief Operating Officer Goal (LTG) Pt will report a 50% improvement in dizziness sxs by 09/29/19. LTG Duration 8 weeks 3 Executive Vice President And Chief Operating Officer Goal (LTG) Pt will report a 50% improvement in neck pain by . LTG Duration 8 weeks 2 Mcfp Goal (LTG) Pt will perform WNLs on a standardized balance test by . LTG Duration 8 weeks 1 Impairment DHI reflects moderate perception of handicap Mcfp Goal (LTG) Pt will present with an improved DHI score to reflect no more than mild perception of handicap by 09/29/19. LTG Duration 8 weeks Assessment Summary Assessment Treated upper cervical neural fascial this date. Initiated EFT tapping this date for relaxation. Con't progression, VOR and other exercises. Physical Therapy Plan Frequency and Duration Frequency of Treatment 2x/Week Duration of Treatment 8 weeks Plan of Care Start Date 07/30/19 Plan of Care End Date 09/29/19 Therapeutic Interventions Therapeutic Interventions Balance Training,Canalithic Repositioning,Coordination Training,Home Exercise Program ,Manual Therapy,Neuromuscular Re-education,Patient/Caregiver Education,Self-Care/Home Management,Sensory Integration ,Soft Tissue Mobilization, Taping,Therapeutic Exercises, Vestibular Rehabilitation Next Visit Focus/Plan Next Note Type Treatment Note Next Visit Plan Progress HEP, checking VOR, ongoing relaxation exercises, intrascapular and shoulder ER exercises
--- NOTE | 2019-08-13 10:32 | PT.OTN ---
Current Diagnoses Sprain of ligaments of cervical spine, initial encounter (08/13/19) Physical Therapy Treatment Note PT-OP-A Visit Information Start: 07/30/19 12:16 Freq: Status: Active Protocol: Document 08/13/19 09:50 MB (Rec: 08/13/19 10:32 MB [id number]) Out-Patient Physical Therapy Visit Information Visit Information Visit Type Treatment Note Visit Start Time 09:50 Visit Stop Time 10:30 Total Visit Minutes 40 Visit Number 01/20 PT-OP-B Current Condition Start: 07/30/19 12:16 Freq: Status: Active Protocol: Document 07/30/19 12:20 MB (Rec: 07/30/19 13:05 MB [id number]) Current Condition History of Current Condition Onset Date 05/01/2018 History of Current Condition Pt went to DO for work-up for migraines. She had high velocity manipulation to her cervical spine and then started having severe neck pain on 05/11/18. She went to the ED and had a pain injection and Oxycontin. She started having vertigo. She did not drive much for 2 months. 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 She has been doing rehab for her neck strength. In May 2018, she started have right hand paresthesia and weakness. She ended up having ulnar nerve transposition 11/26. She then went to OT and got her strength back. She had ablation of C3-7 nerve roots to help with pain relief and increase neck ROM. Her headaches are not better. Her neck ROM is better. She now knows that neck is causing migraines. She is seeing a pain specialist and he performed the ablation 06/02/19. He suggested pt see vestibular PT . Her migraine symptoms are: pressure occiput and wrap up over her head and pull on her brain. She feels her teeth quite often. Her Lyrica was doubled. She has constant SIFUENTES. Pt has nightmares about cracking of joints with relation to her injury. Sleeping is fitful. Bending over makes her the most dizzy. She states that she feels the dizziness when she goes to get back up. She feels like her head gets overpressured. Changing positions can get her. Leaning too far forward is troublesome. She feels like she needs to push herself into something to get tactile sensation. She feels like she needs to get a hold of herself. Pt reports pain rated 2-4 in her right arm and 4-7 in her neck. Jarring in car hurts her . She does report light- headedness. Her eyes feel tired. She had some floaters in the past. She denies hearing changes, tinnitus and dizziness rolling in the bed. She has sinus issues. She reports jaw tightness. She takes a B12 supplement and she had a deficiency. Pt reports she has trust issues with providers after the DO manipulation. She has occ numbness and tingling in right arm. She has shoulder lock-ups. Prior Treatments and Tests OT, PT MRI head and pt reports negative MRI/MRA head and neck with and without contrast Treatment Goals Patient/Caregiver Goals To get better, get back to work PT-OP-C Subjective Start: 07/30/19 12:16 Freq: Status: Active Protocol: Document 08/13/19 09:50 MB (Rec: 08/13/19 10:32 MB [id number]) OP-PT Subjective Patient Comments Patient Comments Pt has had a stressful two days. 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 She got home at 0200. PT-OP-K Range of Motion Start: 07/30/19 12:16 Freq: Status: Active Protocol: Document 07/30/19 12:20 MB (Rec: 07/30/19 16:27 MB [id number]) Cervical Spine Range of Motion Cervical Spine Active Flexion 30 Extension 15 Rotation Left 40 Rotation Right 45 Comments Pt reports 5-6/10 pain with cervical extensio. She presents with left SB posture at rest that increases with left cervical rotation PT-OP-M Strength Start: 07/30/19 12:16 Freq: Status: Active Protocol: Document 07/30/19 12:20 MB (Rec: 07/30/19 16:27 MB [id number]) Shoulder Strength Shoulder Manual Muscle Testing Left Flexion 5 Normal Abduction (C5) 5 Normal Right Flexion 4 Good Abduction (C5) 4 Good Elbow/Forearm Strength Elbow and Forearm Manual Muscle Testing Left Flexion (C6) 5 Normal Extension (C7) 5 Normal Pronation 5 Normal Supination 5 Normal Right Flexion (C6) 5 Normal Extension (C7) 5 Normal Pronation 4 Good Supination 4 Good Wrist Strength Wrist Manual Muscle Testing Left Flexion (C7) 5 Normal Extension (C6) 5 Normal Right Flexion (C7) 5 Normal Extension (C6) 4 Good PT-OP-O Vestibular Start: 07/30/19 16:27 Freq: Status: Active Protocol: Document 07/30/19 12:20 MB (Rec: 07/30/19 16:29 MB [id number]) Vestibular Assessment Visual Testing Smooth Pursuits Horizontal Normal Smooth Pursuits Vertical Normal Saccades Horizontal Normal Gaze Evoked Nystagmus With Fixation Negative Convergence Test Impaired Spontaneous Nystagmus Negative Comments Vestibular Comments Pt denies tinnitus and hearing changes. She does state that she has sinus issues and teeth pain, mostly upper teeth. She states she clenches her jaw. PT-OP-Q Treatments Start: 07/30/19 12:16 Freq: Status: Active Protocol: Document 08/13/19 09:50 MB (Rec: 08/13/19 10:32 MB [id number]) Manual Therapy Treatment Other Other Manual Treatments Pt agrees to Counterstrain to assess and treat fascial tensionn. PT treats stacks: right white rami, right pre- ganglionics proximally, B proximal arterial and area painful to touch on assessment . Pt with a lot of arterial fascial tightness today treated. PT-OP-T Assessment and Plan Start: 07/30/19 12:16 Freq: Status: Active Protocol: Document 08/13/19 09:50 MB (Rec: 08/13/19 10:32 MB [id number]) Physical Therapy Assessment Rehab Potential Rehabilitation Potential Fair Evaluation Complexity Number of Personal Factors/Comorbidities 3 or More Number of Body Systems Impaired 4 or More Clinical Presentation at Evaluation Unstable Impairments Impairments Activity Tolerance,Balance, Coordination,Pain,Posture,ROM, Strength,Vestibular Other Impairments Decreased affect, inability to perform full work duties, occ difficulty driving d/t symptoms, taking multiple medications. Body systems include musculoskeletal, vestibular, psychosocial, neurological s/p nerve ablation. Her clinical picture is evolving to unstable. Goals 6 Hog Sticker Goal (LTG) Pt will present with right shoulder flexion and abduction and right wrist supination, pronation and extension strength to 5/5 by 09/29/19. LTG Duration 8 weeks 5 Care Home Goal (LTG) Pt will perform progressive HEP including postural, VOR, intrascapular, core and shoulder strengthening, breathing and relaxation and balance exercises by 09/29/19. LTG Duration 8 weeks 4 Care Home Goal (LTG) Pt will report a 50% improvement in dizziness sxs by 09/29/19. LTG Duration 8 weeks 3 Hog Sticker Goal (LTG) Pt will report a 50% improvement in neck pain by . LTG Duration 8 weeks 2 Hog Sticker Goal (LTG) Pt will perform WNLs on a standardized balance test by . LTG Duration 8 weeks 1 Impairment DHI reflects moderate perception of handicap Care Home Goal (LTG) Pt will present with an improved DHI score to reflect no more than mild perception of handicap by 09/29/19. LTG Duration 8 weeks Assessment Summary Assessment Pt with increased stress today and little sleep and con't fascial scan and treatment today. She presents with increased fascial tension in upper cervical arterial fascia today. Con't progression, VOR and other exercises. Physical Therapy Plan Frequency and Duration Frequency of Treatment 2x/Week Duration of Treatment 8 weeks Plan of Care Start Date 07/30/19 Plan of Care End Date 09/29/19 Therapeutic Interventions Therapeutic Interventions Balance Training,Canalithic Repositioning,Coordination Training,Home Exercise Program ,Manual Therapy,Neuromuscular Re-education,Patient/Caregiver Education,Self-Care/Home Management,Sensory Integration ,Soft Tissue Mobilization, Taping,Therapeutic Exercises, Vestibular Rehabilitation Next Visit Focus/Plan Next Note Type Treatment Note Next Visit Plan Progress HEP, checking VOR, ongoing relaxation exercises, intrascapular and shoulder ER exercises
--- NOTE | 2019-08-18 08:15 | PT.OTN ---
Current Diagnoses Sprain of ligaments of cervical spine, initial encounter (08/18/19) Physical Therapy Treatment Note PT-OP-A Visit Information Start: 07/30/19 12:16 Freq: Status: Active Protocol: Document 08/18/19 07:30 MB (Rec: 08/18/19 08:14 MB [id number]) Out-Patient Physical Therapy Visit Information Visit Information Visit Type Treatment Note Visit Start Time 07:30 Visit Stop Time 08:10 Total Visit Minutes 40 Visit Number 02/20 PT-OP-B Current Condition Start: 07/30/19 12:16 Freq: Status: Active Protocol: Document 07/30/19 12:20 MB (Rec: 07/30/19 13:05 MB [id number]) Current Condition History of Current Condition Onset Date 05/01/2018 History of Current Condition Pt went to DO for work-up for migraines. She had high velocity manipulation to her cervical spine and then started having severe neck pain on 05/11/18. She went to the ED and had a pain injection and Oxycontin. She started having vertigo. She did not drive much for 2 months. 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 She has been doing rehab for her neck strength. In May 2018, she started have right hand paresthesia and weakness. She ended up having ulnar nerve transposition 11/26. She then went to OT and got her strength back. She had ablation of C3-7 nerve roots to help with pain relief and increase neck ROM. Her headaches are not better. Her neck ROM is better. She now knows that neck is causing migraines. She is seeing a pain specialist and he performed the ablation 06/02/19. He suggested pt see vestibular PT . Her migraine symptoms are: pressure occiput and wrap up over her head and pull on her brain. She feels her teeth quite often. Her Lyrica was doubled. She has constant SIFUENTES. Pt has nightmares about cracking of joints with relation to her injury. Sleeping is fitful. Bending over makes her the most dizzy. She states that she feels the dizziness when she goes to get back up. She feels like her head gets overpressured. Changing positions can get her. Leaning too far forward is troublesome. She feels like she needs to push herself into something to get tactile sensation. She feels like she needs to get a hold of herself. Pt reports pain rated 2-4 in her right arm and 4-7 in her neck. Jarring in car hurts her . She does report light- headedness. Her eyes feel tired. She had some floaters in the past. She denies hearing changes, tinnitus and dizziness rolling in the bed. She has sinus issues. She reports jaw tightness. She takes a B12 supplement and she had a deficiency. Pt reports she has trust issues with providers after the DO manipulation. She has occ numbness and tingling in right arm. She has shoulder lock-ups. Prior Treatments and Tests OT, PT MRI head and pt reports negative MRI/MRA head and neck with and without contrast Treatment Goals Patient/Caregiver Goals To get better, get back to work PT-OP-C Subjective Start: 07/30/19 12:16 Freq: Status: Active Protocol: Document 08/18/19 07:30 MB (Rec: 08/18/19 08:14 MB [id number]) OP-PT Subjective Patient Comments Patient Comments Pt states that she had second round of Botox injections in her traps, head and face on Sunday. She feels like her face and jaw are a lot looser. It feels different in her ears. She still has tooth pain . She asked about weaning off one of the meds, Topiramate 100 mg. She tried tapping and it kind of bothered her. She likes rubbing her head and hands. PT-OP-K Range of Motion Start: 07/30/19 12:16 Freq: Status: Active Protocol: Document 07/30/19 12:20 MB (Rec: 07/30/19 16:27 MB [id number]) Cervical Spine Range of Motion Cervical Spine Active Flexion 30 Extension 15 Rotation Left 40 Rotation Right 45 Comments Pt reports 5-6/10 pain with cervical extensio. She presents with left SB posture at rest that increases with left cervical rotation PT-OP-M Strength Start: 07/30/19 12:16 Freq: Status: Active Protocol: Document 07/30/19 12:20 MB (Rec: 07/30/19 16:27 MB [id number]) Shoulder Strength Shoulder Manual Muscle Testing Left Flexion 5 Normal Abduction (C5) 5 Normal Right Flexion 4 Good Abduction (C5) 4 Good Elbow/Forearm Strength Elbow and Forearm Manual Muscle Testing Left Flexion (C6) 5 Normal Extension (C7) 5 Normal Pronation 5 Normal Supination 5 Normal Right Flexion (C6) 5 Normal Extension (C7) 5 Normal Pronation 4 Good Supination 4 Good Wrist Strength Wrist Manual Muscle Testing Left Flexion (C7) 5 Normal Extension (C6) 5 Normal Right Flexion (C7) 5 Normal Extension (C6) 4 Good PT-OP-O Vestibular Start: 07/30/19 16:27 Freq: Status: Active Protocol: Document 07/30/19 12:20 MB (Rec: 07/30/19 16:29 MB [id number]) Vestibular Assessment Visual Testing Smooth Pursuits Horizontal Normal Smooth Pursuits Vertical Normal Saccades Horizontal Normal Gaze Evoked Nystagmus With Fixation Negative Convergence Test Impaired Spontaneous Nystagmus Negative Comments Vestibular Comments Pt denies tinnitus and hearing changes. She does state that she has sinus issues and teeth pain, mostly upper teeth. She states she clenches her jaw. PT-OP-Q Treatments Start: 07/30/19 12:16 Freq: Status: Active Protocol: Document 08/18/19 07:30 MB (Rec: 08/18/19 08:14 MB [id number]) Therapeutic Exercises Supine Exercises EFT Comments D/cd today Diaphragmatic breathing Comments Performed standing when using racquet ball Sitting Exercises DVA VOR exercises horizontal and vertical Comments Performed this date and added to HEP letter E Standing Exercises Racquet ball massage intrascapular muscles, infra Comments Performed this date, rib mobs, cervical rotation, MWM PT-OP-T Assessment and Plan Start: 07/30/19 12:16 Freq: Status: Active Protocol: Document 08/18/19 07:30 MB (Rec: 08/18/19 08:14 MB [id number]) Physical Therapy Assessment Rehab Potential Rehabilitation Potential Fair Evaluation Complexity Number of Personal Factors/Comorbidities 3 or More Number of Body Systems Impaired 4 or More Clinical Presentation at Evaluation Unstable Impairments Impairments Activity Tolerance,Balance, Coordination,Pain,Posture,ROM, Strength,Vestibular Other Impairments Decreased affect, inability to perform full work duties, occ difficulty driving d/t symptoms, taking multiple medications. Body systems include musculoskeletal, vestibular, psychosocial, neurological s/p nerve ablation. Her clinical picture is evolving to unstable. Goals 6 Skilled Nursing Goal (LTG) Pt will present with right shoulder flexion and abduction and right wrist supination, pronation and extension strength to 5/5 by 09/29/19. LTG Duration 8 weeks 5 Skilled Nursing Goal (LTG) Pt will perform progressive HEP including postural, VOR, intrascapular, core and shoulder strengthening, breathing and relaxation and balance exercises by 09/29/19. LTG Duration 8 weeks 4 Skilled Nursing Goal (LTG) Pt will report a 50% improvement in dizziness sxs by 09/29/19. LTG Duration 8 weeks 3 Roll Off Driver Goal (LTG) Pt will report a 50% improvement in neck pain by . LTG Duration 8 weeks 2 Skilled Nursing Goal (LTG) Pt will perform WNLs on a standardized balance test by . LTG Duration 8 weeks 1 Impairment DHI reflects moderate perception of handicap Roll Off Driver Goal (LTG) Pt will present with an improved DHI score to reflect no more than mild perception of handicap by 09/29/19. LTG Duration 8 weeks Assessment Summary Assessment D/cd EFT today. Added racquet ball exercises to help with fascial mobility. Assessed VOR with DVA today and pt has trouble with both horizontal ( 1 line difference) and vertical (1 line difference). Con't progression, VOR and other exercises. Physical Therapy Plan Frequency and Duration Frequency of Treatment 2x/Week Duration of Treatment 8 weeks Plan of Care Start Date 07/30/19 Plan of Care End Date 09/29/19 Therapeutic Interventions Therapeutic Interventions Balance Training,Canalithic Repositioning,Coordination Training,Home Exercise Program ,Manual Therapy,Neuromuscular Re-education,Patient/Caregiver Education,Self-Care/Home Management,Sensory Integration ,Soft Tissue Mobilization, Taping,Therapeutic Exercises, Vestibular Rehabilitation Next Visit Focus/Plan Next Note Type Treatment Note Next Visit Plan Progress ongoing relaxation exercises, intrascapular and shoulder ER exercises, cervical isometrics and deep neck flexor strengthening.
--- NOTE | 2019-08-22 08:17 | PT.OTN ---
Current Diagnoses Sprain of ligaments of cervical spine, initial encounter (08/22/19) Physical Therapy Treatment Note PT-OP-A Visit Information Start: 07/30/19 12:16 Freq: Status: Active Protocol: Document 08/22/19 07:29 MB (Rec: 08/22/19 08:17 MB [id number]) Out-Patient Physical Therapy Visit Information Visit Information Visit Type Treatment Note Visit Start Time 07:29 Visit Stop Time 08:09 Total Visit Minutes 40 Visit Number 03/22 PT-OP-B Current Condition Start: 07/30/19 12:16 Freq: Status: Active Protocol: Document 07/30/19 12:20 MB (Rec: 07/30/19 13:05 MB [id number]) Current Condition History of Current Condition Onset Date 05/01/2018 History of Current Condition Pt went to DO for work-up for migraines. She had high velocity manipulation to her cervical spine and then started having severe neck pain on 05/11/18. She went to the ED and had a pain injection and Oxycontin. She started having vertigo. She did not drive much for 2 months. 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 She has been doing rehab for her neck strength. In May 2018, she started have right hand paresthesia and weakness. She ended up having ulnar nerve transposition 11/26. She then went to OT and got her strength back. She had ablation of C3-7 nerve roots to help with pain relief and increase neck ROM. Her headaches are not better. Her neck ROM is better. She now knows that neck is causing migraines. She is seeing a pain specialist and he performed the ablation 06/02/19. He suggested pt see vestibular PT . Her migraine symptoms are: pressure occiput and wrap up over her head and pull on her brain. She feels her teeth quite often. Her Lyrica was doubled. She has constant SIFUENTES. Pt has nightmares about cracking of joints with relation to her injury. Sleeping is fitful. Bending over makes her the most dizzy. She states that she feels the dizziness when she goes to get back up. She feels like her head gets overpressured. Changing positions can get her. Leaning too far forward is troublesome. She feels like she needs to push herself into something to get tactile sensation. She feels like she needs to get a hold of herself. Pt reports pain rated 2-4 in her right arm and 4-7 in her neck. Jarring in car hurts her . She does report light- headedness. Her eyes feel tired. She had some floaters in the past. She denies hearing changes, tinnitus and dizziness rolling in the bed. She has sinus issues. She reports jaw tightness. She takes a B12 supplement and she had a deficiency. Pt reports she has trust issues with providers after the DO manipulation. She has occ numbness and tingling in right arm. She has shoulder lock-ups. Prior Treatments and Tests OT, PT MRI head and pt reports negative MRI/MRA head and neck with and without contrast Treatment Goals Patient/Caregiver Goals To get better, get back to work PT-OP-C Subjective Start: 07/30/19 12:16 Freq: Status: Active Protocol: Document 08/22/19 07:29 MB (Rec: 08/22/19 08:17 MB [id number]) OP-PT Subjective Patient Comments Patient Comments Pt has to drive down to [place] today with another nursing services manager. Pt has not yet gotten racquet balls. She would not like to perform DVA exercises today d/ t concern about dizziness before drive today. Pt is taking coffee beans with her. 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 Pt reports she had a lumbar fusion when she was 27 y/o. PT-OP-K Range of Motion Start: 07/30/19 12:16 Freq: Status: Active Protocol: Document 07/30/19 12:20 MB (Rec: 07/30/19 16:27 MB [id number]) Cervical Spine Range of Motion Cervical Spine Active Flexion 30 Extension 15 Rotation Left 40 Rotation Right 45 Comments Pt reports 5-6/10 pain with cervical extensio. She presents with left SB posture at rest that increases with left cervical rotation PT-OP-M Strength Start: 07/30/19 12:16 Freq: Status: Active Protocol: Document 07/30/19 12:20 MB (Rec: 07/30/19 16:27 MB [id number]) Shoulder Strength Shoulder Manual Muscle Testing Left Flexion 5 Normal Abduction (C5) 5 Normal Right Flexion 4 Good Abduction (C5) 4 Good Elbow/Forearm Strength Elbow and Forearm Manual Muscle Testing Left Flexion (C6) 5 Normal Extension (C7) 5 Normal Pronation 5 Normal Supination 5 Normal Right Flexion (C6) 5 Normal Extension (C7) 5 Normal Pronation 4 Good Supination 4 Good Wrist Strength Wrist Manual Muscle Testing Left Flexion (C7) 5 Normal Extension (C6) 5 Normal Right Flexion (C7) 5 Normal Extension (C6) 4 Good PT-OP-O Vestibular Start: 07/30/19 16:27 Freq: Status: Active Protocol: Document 07/30/19 12:20 MB (Rec: 07/30/19 16:29 MB [id number]) Vestibular Assessment Visual Testing Smooth Pursuits Horizontal Normal Smooth Pursuits Vertical Normal Saccades Horizontal Normal Gaze Evoked Nystagmus With Fixation Negative Convergence Test Impaired Spontaneous Nystagmus Negative Comments Vestibular Comments Pt denies tinnitus and hearing changes. She does state that she has sinus issues and teeth pain, mostly upper teeth. She states she clenches her jaw. PT-OP-Q Treatments Start: 07/30/19 12:16 Freq: Status: Active Protocol: Document 08/22/19 07:29 MB (Rec: 08/22/19 08:17 MB [id number]) Therapeutic Exercises Sitting Exercises Diaphragmatic breathing Comments Performed in sitting today Upper cervical isometric Comments Upper cervical rotation isometric Manual Therapy Treatment Manual Techniques STM B SCM this date Comments Performed this date, pt performed MWM with cervical rotation and PT provides trigger point pressure, suboccipital release PT-OP-T Assessment and Plan Start: 07/30/19 12:16 Freq: Status: Active Protocol: Document 08/22/19 07:29 MB (Rec: 08/22/19 08:17 MB [id number]) Physical Therapy Assessment Rehab Potential Rehabilitation Potential Fair Evaluation Complexity Number of Personal Factors/Comorbidities 3 or More Number of Body Systems Impaired 4 or More Clinical Presentation at Evaluation Unstable Impairments Impairments Activity Tolerance,Balance, Coordination,Pain,Posture,ROM, Strength,Vestibular Other Impairments Decreased affect, inability to perform full work duties, occ difficulty driving d/t symptoms, taking multiple medications. Body systems include musculoskeletal, vestibular, psychosocial, neurological s/p nerve ablation. Her clinical picture is evolving to unstable. Goals 6 Research Specialist Goal (LTG) Pt will present with right shoulder flexion and abduction and right wrist supination, pronation and extension strength to 5/5 by 09/29/19. LTG Duration 8 weeks 5 Alf Goal (LTG) Pt will perform progressive HEP including postural, VOR, intrascapular, core and shoulder strengthening, breathing and relaxation and balance exercises by 09/29/19. LTG Duration 8 weeks 4 Research Specialist Goal (LTG) Pt will report a 50% improvement in dizziness sxs by 09/29/19. LTG Duration 8 weeks 3 Research Specialist Goal (LTG) Pt will report a 50% improvement in neck pain by . LTG Duration 8 weeks 2 Alf Goal (LTG) Pt will perform WNLs on a standardized balance test by . LTG Duration 8 weeks 1 Impairment DHI reflects moderate perception of handicap Alf Goal (LTG) Pt will present with an improved DHI score to reflect no more than mild perception of handicap by 09/29/19. LTG Duration 8 weeks Assessment Summary Assessment Pt presents wtih cervical dysmetria with upper cervical rotation. She performs isometric this date and reports discomfort to the right. Her pupils (right greater than left) con't to be dilated and she wears sunglasses as needed and PT has been keeping light low in the room. Physical Therapy Plan Frequency and Duration Frequency of Treatment 2x/Week Duration of Treatment 8 weeks Plan of Care Start Date 07/30/19 Plan of Care End Date 09/29/19 Therapeutic Interventions Therapeutic Interventions Balance Training,Canalithic Repositioning,Coordination Training,Home Exercise Program ,Manual Therapy,Neuromuscular Re-education,Patient/Caregiver Education,Self-Care/Home Management,Sensory Integration ,Soft Tissue Mobilization, Taping,Therapeutic Exercises, Vestibular Rehabilitation Next Visit Focus/Plan Next Note Type Treatment Note Next Visit Plan Progress ongoing relaxation exercises, intrascapular and shoulder ER exercises, and deep neck flexor strengthening .
--- NOTE | 2019-08-26 08:15 | PT.OTN ---
Current Diagnoses Sprain of ligaments of cervical spine, initial encounter (08/26/19) Physical Therapy Treatment Note PT-OP-A Visit Information Start: 07/30/19 12:16 Freq: Status: Active Protocol: Document 08/26/19 07:33 MB (Rec: 08/26/19 08:14 MB [id number]) Out-Patient Physical Therapy Visit Information Visit Information Visit Type Treatment Note Visit Start Time 07:33 Visit Stop Time 08:13 Total Visit Minutes 40 Visit Number 04/22 PT-OP-B Current Condition Start: 07/30/19 12:16 Freq: Status: Active Protocol: Document 07/30/19 12:20 MB (Rec: 07/30/19 13:05 MB [id number]) Current Condition History of Current Condition Onset Date 05/01/2018 History of Current Condition Pt went to DO for work-up for migraines. She had high velocity manipulation to her cervical spine and then started having severe neck pain on 05/11/18. She went to the ED and had a pain injection and Oxycontin. She started having vertigo. She did not drive much for 2 months. 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 She has been doing rehab for her neck strength. In May 2018, she started have right hand paresthesia and weakness. She ended up having ulnar nerve transposition 11/26. She then went to OT and got her strength back. She had ablation of C3-7 nerve roots to help with pain relief and increase neck ROM. Her headaches are not better. Her neck ROM is better. She now knows that neck is causing migraines. She is seeing a pain specialist and he performed the ablation 06/02/19. He suggested pt see vestibular PT . Her migraine symptoms are: pressure occiput and wrap up over her head and pull on her brain. She feels her teeth quite often. Her Lyrica was doubled. She has constant SIFUENTES. Pt has nightmares about cracking of joints with relation to her injury. Sleeping is fitful. Bending over makes her the most dizzy. She states that she feels the dizziness when she goes to get back up. She feels like her head gets overpressured. Changing positions can get her. Leaning too far forward is troublesome. She feels like she needs to push herself into something to get tactile sensation. She feels like she needs to get a hold of herself. Pt reports pain rated 2-4 in her right arm and 4-7 in her neck. Jarring in car hurts her . She does report light- headedness. Her eyes feel tired. She had some floaters in the past. She denies hearing changes, tinnitus and dizziness rolling in the bed. She has sinus issues. She reports jaw tightness. She takes a B12 supplement and she had a deficiency. Pt reports she has trust issues with providers after the DO manipulation. She has occ numbness and tingling in right arm. She has shoulder lock-ups. Prior Treatments and Tests OT, PT MRI head and pt reports negative MRI/MRA head and neck with and without contrast Treatment Goals Patient/Caregiver Goals To get better, get back to work PT-OP-C Subjective Start: 07/30/19 12:16 Freq: Status: Active Protocol: Document 08/26/19 07:33 MB (Rec: 08/26/19 08:14 MB [id number]) OP-PT Subjective Patient Comments Patient Comments Pt states that she is doing okay. She is tapering off the Topiramate. She is wearing compression on her legs. Work has been long days and she has had some long car rides and this has caused some neck glitches. PT-OP-K Range of Motion Start: 07/30/19 12:16 Freq: Status: Active Protocol: Document 07/30/19 12:20 MB (Rec: 07/30/19 16:27 MB [id number]) Cervical Spine Range of Motion Cervical Spine Active Flexion 30 Extension 15 Rotation Left 40 Rotation Right 45 Comments Pt reports 5-6/10 pain with cervical extensio. She presents with left SB posture at rest that increases with left cervical rotation PT-OP-M Strength Start: 07/30/19 12:16 Freq: Status: Active Protocol: Document 07/30/19 12:20 MB (Rec: 07/30/19 16:27 MB [id number]) Shoulder Strength Shoulder Manual Muscle Testing Left Flexion 5 Normal Abduction (C5) 5 Normal Right Flexion 4 Good Abduction (C5) 4 Good Elbow/Forearm Strength Elbow and Forearm Manual Muscle Testing Left Flexion (C6) 5 Normal Extension (C7) 5 Normal Pronation 5 Normal Supination 5 Normal Right Flexion (C6) 5 Normal Extension (C7) 5 Normal Pronation 4 Good Supination 4 Good Wrist Strength Wrist Manual Muscle Testing Left Flexion (C7) 5 Normal Extension (C6) 5 Normal Right Flexion (C7) 5 Normal Extension (C6) 4 Good PT-OP-O Vestibular Start: 07/30/19 16:27 Freq: Status: Active Protocol: Document 07/30/19 12:20 MB (Rec: 07/30/19 16:29 MB [id number]) Vestibular Assessment Visual Testing Smooth Pursuits Horizontal Normal Smooth Pursuits Vertical Normal Saccades Horizontal Normal Gaze Evoked Nystagmus With Fixation Negative Convergence Test Impaired Spontaneous Nystagmus Negative Comments Vestibular Comments Pt denies tinnitus and hearing changes. She does state that she has sinus issues and teeth pain, mostly upper teeth. She states she clenches her jaw. PT-OP-Q Treatments Start: 07/30/19 12:16 Freq: Status: Active Protocol: Document 08/26/19 07:33 MB (Rec: 08/26/19 08:14 MB [id number]) Therapeutic Exercises Sitting Exercises Upper cervical isometric Comments Upper cervical rotation isometric Standing Exercises Scapular retraction and shoulder ER with level 1 band Comments Initiated this date and added to HEP Racquet ball massage intrascapular muscles, infra Comments Performed again this date for review PT-OP-T Assessment and Plan Start: 07/30/19 12:16 Freq: Status: Active Protocol: Document 08/26/19 07:33 MB (Rec: 08/26/19 08:14 MB [id number]) Physical Therapy Assessment Rehab Potential Rehabilitation Potential Fair Evaluation Complexity Number of Personal Factors/Comorbidities 3 or More Number of Body Systems Impaired 4 or More Clinical Presentation at Evaluation Unstable Impairments Impairments Activity Tolerance,Balance, Coordination,Pain,Posture,ROM, Strength,Vestibular Other Impairments Decreased affect, inability to perform full work duties, occ difficulty driving d/t symptoms, taking multiple medications. Body systems include musculoskeletal, vestibular, psychosocial, neurological s/p nerve ablation. Her clinical picture is evolving to unstable. Goals 6 Mcfp Goal (LTG) Pt will present with right shoulder flexion and abduction and right wrist supination, pronation and extension strength to 5/5 by 09/29/19. LTG Duration 8 weeks 5 Mcfp Goal (LTG) Pt will perform progressive HEP including postural, VOR, intrascapular, core and shoulder strengthening, breathing and relaxation and balance exercises by 09/29/19. LTG Duration 8 weeks 4 Market Research Senior Project Manager Goal (LTG) Pt will report a 50% improvement in dizziness sxs by 09/29/19. LTG Duration 8 weeks 3 [employer] Senior Project Manager Goal (LTG) Pt will report a 50% improvement in neck pain by . LTG Duration 8 weeks 2 Mcfp Goal (LTG) Pt will perform WNLs on a standardized balance test by . LTG Duration 8 weeks 1 Impairment DHI reflects moderate perception of handicap [employer] Senior Project Manager Goal (LTG) Pt will present with an improved DHI score to reflect no more than mild perception of handicap by 09/29/19. LTG Duration 8 weeks Assessment Summary Assessment Initiated scapular and shoulder strengthening this date. Reviewed upper cervical and racquet ball massage. Consider checking out SCM next treatment date d/t cervicogenic components to dizziness. Con't to ed pt on increasing non-caffeinated fluid intake. Physical Therapy Plan Frequency and Duration Frequency of Treatment 2x/Week Duration of Treatment 8 weeks Plan of Care Start Date 07/30/19 Plan of Care End Date 09/29/19 Therapeutic Interventions Therapeutic Interventions Balance Training,Canalithic Repositioning,Coordination Training,Home Exercise Program ,Manual Therapy,Neuromuscular Re-education,Patient/Caregiver Education,Self-Care/Home Management,Sensory Integration ,Soft Tissue Mobilization, Taping,Therapeutic Exercises, Vestibular Rehabilitation Next Visit Focus/Plan Next Note Type Treatment Note Next Visit Plan Progress ongoing relaxation exercises and deep neck flexor strengthening. Consider progressive plank and Motion Sensitivity Quotient
--- NOTE | 2019-08-29 09:48 | PT.OTN ---
Current Diagnoses Sprain of ligaments of cervical spine, initial encounter (08/29/19) Physical Therapy Treatment Note PT-OP-A Visit Information Start: 07/30/19 12:16 Freq: Status: Active Protocol: Document 08/29/19 09:03 MB (Rec: 08/29/19 09:48 MB [id number]) Out-Patient Physical Therapy Visit Information Visit Information Visit Type Treatment Note Visit Start Time 09:03 Visit Stop Time 09:43 Total Visit Minutes 40 Visit Number 05/23 PT-OP-B Current Condition Start: 07/30/19 12:16 Freq: Status: Active Protocol: Document 07/30/19 12:20 MB (Rec: 07/30/19 13:05 MB [id number]) Current Condition History of Current Condition Onset Date 05/01/2018 History of Current Condition Pt went to DO for work-up for migraines. She had high velocity manipulation to her cervical spine and then started having severe neck pain on 05/11/18. She went to the ED and had a pain injection and Oxycontin. She started having vertigo. She did not drive much for 2 months. 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 She has been doing rehab for her neck strength. In May 2018, she started have right hand paresthesia and weakness. She ended up having ulnar nerve transposition 11/26. She then went to OT and got her strength back. She had ablation of C3-7 nerve roots to help with pain relief and increase neck ROM. Her headaches are not better. Her neck ROM is better. She now knows that neck is causing migraines. She is seeing a pain specialist and he performed the ablation 06/02/19. He suggested pt see vestibular PT . Her migraine symptoms are: pressure occiput and wrap up over her head and pull on her brain. She feels her teeth quite often. Her Lyrica was doubled. She has constant SIFUENTES. Pt has nightmares about cracking of joints with relation to her injury. Sleeping is fitful. Bending over makes her the most dizzy. She states that she feels the dizziness when she goes to get back up. She feels like her head gets overpressured. Changing positions can get her. Leaning too far forward is troublesome. She feels like she needs to push herself into something to get tactile sensation. She feels like she needs to get a hold of herself. Pt reports pain rated 2-4 in her right arm and 4-7 in her neck. Jarring in car hurts her . She does report light- headedness. Her eyes feel tired. She had some floaters in the past. She denies hearing changes, tinnitus and dizziness rolling in the bed. She has sinus issues. She reports jaw tightness. She takes a B12 supplement and she had a deficiency. Pt reports she has trust issues with providers after the DO manipulation. She has occ numbness and tingling in right arm. She has shoulder lock-ups. Prior Treatments and Tests OT, PT MRI head and pt reports negative MRI/MRA head and neck with and without contrast Treatment Goals Patient/Caregiver Goals To get better, get back to work PT-OP-C Subjective Start: 07/30/19 12:16 Freq: Status: Active Protocol: Document 08/29/19 09:03 MB (Rec: 08/29/19 09:48 MB [id number]) OP-PT Subjective Patient Comments Patient Comments Pt con't to have increased stress at work. She has not had time to do exercises. PT-OP-K Range of Motion Start: 07/30/19 12:16 Freq: Status: Active Protocol: Document 07/30/19 12:20 MB (Rec: 07/30/19 16:27 MB [id number]) Cervical Spine Range of Motion Cervical Spine Active Flexion 30 Extension 15 Rotation Left 40 Rotation Right 45 Comments Pt reports 5-6/10 pain with cervical extensio. She presents with left SB posture at rest that increases with left cervical rotation PT-OP-M Strength Start: 07/30/19 12:16 Freq: Status: Active Protocol: Document 07/30/19 12:20 MB (Rec: 07/30/19 16:27 MB [id number]) Shoulder Strength Shoulder Manual Muscle Testing Left Flexion 5 Normal Abduction (C5) 5 Normal Right Flexion 4 Good Abduction (C5) 4 Good Elbow/Forearm Strength Elbow and Forearm Manual Muscle Testing Left Flexion (C6) 5 Normal Extension (C7) 5 Normal Pronation 5 Normal Supination 5 Normal Right Flexion (C6) 5 Normal Extension (C7) 5 Normal Pronation 4 Good Supination 4 Good Wrist Strength Wrist Manual Muscle Testing Left Flexion (C7) 5 Normal Extension (C6) 5 Normal Right Flexion (C7) 5 Normal Extension (C6) 4 Good PT-OP-O Vestibular Start: 07/30/19 16:27 Freq: Status: Active Protocol: Document 07/30/19 12:20 MB (Rec: 07/30/19 16:29 MB [id number]) Vestibular Assessment Visual Testing Smooth Pursuits Horizontal Normal Smooth Pursuits Vertical Normal Saccades Horizontal Normal Gaze Evoked Nystagmus With Fixation Negative Convergence Test Impaired Spontaneous Nystagmus Negative Comments Vestibular Comments Pt denies tinnitus and hearing changes. She does state that she has sinus issues and teeth pain, mostly upper teeth. She states she clenches her jaw. PT-OP-Q Treatments Start: 07/30/19 12:16 Freq: Status: Active Protocol: Document 08/29/19 09:03 MB (Rec: 08/29/19 09:48 MB [id number]) Manual Therapy Treatment Manual Techniques STM B SCM this date Comments Performed this date, pt performed MWM with cervical rotation and PT provides trigger point pressure, suboccipital release and also positional release masseter, gentle grade I-II first rib mob on the left, B SC recoil, prone PA mobs and rib recoil thoracic spine PT-OP-T Assessment and Plan Start: 07/30/19 12:16 Freq: Status: Active Protocol: Document 08/29/19 09:03 MB (Rec: 08/29/19 09:48 MB [id number]) Physical Therapy Assessment Rehab Potential Rehabilitation Potential Fair Evaluation Complexity Number of Personal Factors/Comorbidities 3 or More Number of Body Systems Impaired 4 or More Clinical Presentation at Evaluation Unstable Impairments Impairments Activity Tolerance,Balance, Coordination,Pain,Posture,ROM, Strength,Vestibular Other Impairments Decreased affect, inability to perform full work duties, occ difficulty driving d/t symptoms, taking multiple medications. Body systems include musculoskeletal, vestibular, psychosocial, neurological s/p nerve ablation. Her clinical picture is evolving to unstable. Goals 6 Retirement Goal (LTG) Pt will present with right shoulder flexion and abduction and right wrist supination, pronation and extension strength to 5/5 by 09/29/19. LTG Duration 8 weeks 5 Retirement Goal (LTG) Pt will perform progressive HEP including postural, VOR, intrascapular, core and shoulder strengthening, breathing and relaxation and balance exercises by 09/29/19. LTG Duration 8 weeks 4 Retirement Goal (LTG) Pt will report a 50% improvement in dizziness sxs by 09/29/19. LTG Duration 8 weeks 3 Group Activities Aide Goal (LTG) Pt will report a 50% improvement in neck pain by . LTG Duration 8 weeks 2 Group Activities Aide Goal (LTG) Pt will perform WNLs on a standardized balance test by . LTG Duration 8 weeks 1 Impairment DHI reflects moderate perception of handicap Retirement Goal (LTG) Pt will present with an improved DHI score to reflect no more than mild perception of handicap by 09/29/19. LTG Duration 8 weeks Assessment Summary Assessment Pt con't with stressors at work that do not allow her for self-care time and this is a barrier to PT HEP progression. She has decreased rest time. Physical Therapy Plan Frequency and Duration Frequency of Treatment 2x/Week Duration of Treatment 8 weeks Plan of Care Start Date 07/30/19 Plan of Care End Date 09/29/19 Therapeutic Interventions Therapeutic Interventions Balance Training,Canalithic Repositioning,Coordination Training,Home Exercise Program ,Manual Therapy,Neuromuscular Re-education,Patient/Caregiver Education,Self-Care/Home Management,Sensory Integration ,Soft Tissue Mobilization, Taping,Therapeutic Exercises, Vestibular Rehabilitation Next Visit Focus/Plan Next Note Type Treatment Note Next Visit Plan Progress ongoing relaxation exercises and deep neck flexor strengthening. Consider progressive plank, thoracic mobility and Motion Sensitivity Quotient
--- NOTE | 2019-09-01 10:24 | PT.OTN ---
Current Diagnoses Sprain of ligaments of cervical spine, initial encounter (09/01/19) Physical Therapy Treatment Note PT-OP-A Visit Information Start: 07/30/19 12:16 Freq: Status: Active Protocol: Document 09/01/19 09:46 MB (Rec: 09/01/19 10:24 MB [id number]) Out-Patient Physical Therapy Visit Information Visit Information Visit Type Treatment Note Visit Start Time 09:46 Visit Stop Time 09:24 Total Visit Minutes 38 Visit Number 06/22 PT-OP-B Current Condition Start: 07/30/19 12:16 Freq: Status: Active Protocol: Document 07/30/19 12:20 MB (Rec: 07/30/19 13:05 MB [id number]) Current Condition History of Current Condition Onset Date 05/01/2018 History of Current Condition Pt went to DO for work-up for migraines. She had high velocity manipulation to her cervical spine and then started having severe neck pain on 05/11/18. She went to the ED and had a pain injection and Oxycontin. She started having vertigo. She did not drive much for 2 months. 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 She has been doing rehab for her neck strength. In May 2018, she started have right hand paresthesia and weakness. She ended up having ulnar nerve transposition 11/26. She then went to OT and got her strength back. She had ablation of C3-7 nerve roots to help with pain relief and increase neck ROM. Her headaches are not better. Her neck ROM is better. She now knows that neck is causing migraines. She is seeing a pain specialist and he performed the ablation 06/02/19. He suggested pt see vestibular PT . Her migraine symptoms are: pressure occiput and wrap up over her head and pull on her brain. She feels her teeth quite often. Her Lyrica was doubled. She has constant SIFUENTES. Pt has nightmares about cracking of joints with relation to her injury. Sleeping is fitful. Bending over makes her the most dizzy. She states that she feels the dizziness when she goes to get back up. She feels like her head gets overpressured. Changing positions can get her. Leaning too far forward is troublesome. She feels like she needs to push herself into something to get tactile sensation. She feels like she needs to get a hold of herself. Pt reports pain rated 2-4 in her right arm and 4-7 in her neck. Jarring in car hurts her . She does report light- headedness. Her eyes feel tired. She had some floaters in the past. She denies hearing changes, tinnitus and dizziness rolling in the bed. She has sinus issues. She reports jaw tightness. She takes a B12 supplement and she had a deficiency. Pt reports she has trust issues with providers after the DO manipulation. She has occ numbness and tingling in right arm. She has shoulder lock-ups. Prior Treatments and Tests OT, PT MRI head and pt reports negative MRI/MRA head and neck with and without contrast Treatment Goals Patient/Caregiver Goals To get better, get back to work PT-OP-C Subjective Start: 07/30/19 12:16 Freq: Status: Active Protocol: Document 09/01/19 09:46 MB (Rec: 09/01/19 10:24 MB [id number]) OP-PT Subjective Patient Comments Patient Comments Pt is doing okay. Her son has been sick and she got a little under the weather and she got a little better. She has been doing the ball massage. PT-OP-K Range of Motion Start: 07/30/19 12:16 Freq: Status: Active Protocol: Document 07/30/19 12:20 MB (Rec: 07/30/19 16:27 MB [id number]) Cervical Spine Range of Motion Cervical Spine Active Flexion 30 Extension 15 Rotation Left 40 Rotation Right 45 Comments Pt reports 5-6/10 pain with cervical extensio. She presents with left SB posture at rest that increases with left cervical rotation PT-OP-M Strength Start: 07/30/19 12:16 Freq: Status: Active Protocol: Document 07/30/19 12:20 MB (Rec: 07/30/19 16:27 MB [id number]) Shoulder Strength Shoulder Manual Muscle Testing Left Flexion 5 Normal Abduction (C5) 5 Normal Right Flexion 4 Good Abduction (C5) 4 Good Elbow/Forearm Strength Elbow and Forearm Manual Muscle Testing Left Flexion (C6) 5 Normal Extension (C7) 5 Normal Pronation 5 Normal Supination 5 Normal Right Flexion (C6) 5 Normal Extension (C7) 5 Normal Pronation 4 Good Supination 4 Good Wrist Strength Wrist Manual Muscle Testing Left Flexion (C7) 5 Normal Extension (C6) 5 Normal Right Flexion (C7) 5 Normal Extension (C6) 4 Good PT-OP-O Vestibular Start: 07/30/19 16:27 Freq: Status: Active Protocol: Document 07/30/19 12:20 MB (Rec: 07/30/19 16:29 MB [id number]) Vestibular Assessment Visual Testing Smooth Pursuits Horizontal Normal Smooth Pursuits Vertical Normal Saccades Horizontal Normal Gaze Evoked Nystagmus With Fixation Negative Convergence Test Impaired Spontaneous Nystagmus Negative Comments Vestibular Comments Pt denies tinnitus and hearing changes. She does state that she has sinus issues and teeth pain, mostly upper teeth. She states she clenches her jaw. PT-OP-Q Treatments Start: 07/30/19 12:16 Freq: Status: Active Protocol: Document 09/01/19 09:46 MB (Rec: 09/01/19 10:24 MB [id number]) Therapeutic Activity Therapeutic Activity Motion Sensitivity Quotient Comments Motion Sensitivity Quotient run and activity given for home. PT-OP-T Assessment and Plan Start: 07/30/19 12:16 Freq: Status: Active Protocol: Document 09/01/19 09:46 MB (Rec: 09/01/19 10:24 MB [id number]) Physical Therapy Assessment Rehab Potential Rehabilitation Potential Fair Evaluation Complexity Number of Personal Factors/Comorbidities 3 or More Number of Body Systems Impaired 4 or More Clinical Presentation at Evaluation Unstable Impairments Impairments Activity Tolerance,Balance, Coordination,Pain,Posture,ROM, Strength,Vestibular Other Impairments Decreased affect, inability to perform full work duties, occ difficulty driving d/t symptoms, taking multiple medications. Body systems include musculoskeletal, vestibular, psychosocial, neurological s/p nerve ablation. Her clinical picture is evolving to unstable. Assessment Summary Assessment Motion Sensitivity Quotient this date revealed most symptoms when moving up from left greater than right Jenny- Hallpike. PT and pt are unsure if direction of head is the primary issue vs performing the task twice in a row. Also, moving head down to the right knee and coming up is slightly worse than moving down to the left and up. This is what she describes is the most troublesome thing to do during the day. Will add this as exercise to perform on good days at the end of the day. 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 PT favors cervicogenic, postural BP changes, and some vestibular hypofunction as contributors to her sxs. Physical Therapy Plan Frequency and Duration Frequency of Treatment 2x/Week Duration of Treatment 8 weeks Plan of Care Start Date 07/30/19 Plan of Care End Date 09/29/19 Therapeutic Interventions Therapeutic Interventions Balance Training,Canalithic Repositioning,Coordination Training,Home Exercise Program ,Manual Therapy,Neuromuscular Re-education,Patient/Caregiver Education,Self-Care/Home Management,Sensory Integration ,Soft Tissue Mobilization, Taping,Therapeutic Exercises, Vestibular Rehabilitation Next Visit Focus/Plan Next Note Type Treatment Note Next Visit Plan Progress ongoing balance, relaxation exercises and deep neck flexor strengthening. Consider progressive plank, thoracic mobility
--- NOTE | 2019-09-09 15:56 | PT.OTN ---
Current Diagnoses Sprain of ligaments of cervical spine, initial encounter (09/09/19) Physical Therapy Treatment Note PT-OP-A Visit Information Start: 07/30/19 12:16 Freq: Status: Active Protocol: Document 09/09/19 15:14 MB (Rec: 09/09/19 15:55 MB [id number]) Out-Patient Physical Therapy Visit Information Visit Information Visit Type Treatment Note Visit Start Time 15:14 Visit Stop Time 15:54 Total Visit Minutes 40 Visit Number 07/23 PT-OP-B Current Condition Start: 07/30/19 12:16 Freq: Status: Active Protocol: Document 07/30/19 12:20 MB (Rec: 07/30/19 13:05 MB [id number]) Current Condition History of Current Condition Onset Date 05/01/2018 History of Current Condition Pt went to DO for work-up for migraines. She had high velocity manipulation to her cervical spine and then started having severe neck pain on 05/11/18. She went to the ED and had a pain injection and Oxycontin. She started having vertigo. She did not drive much for 2 months. 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 She has been doing rehab for her neck strength. In May 2018, she started have right hand paresthesia and weakness. She ended up having ulnar nerve transposition 11/26. She then went to OT and got her strength back. She had ablation of C3-7 nerve roots to help with pain relief and increase neck ROM. Her headaches are not better. Her neck ROM is better. She now knows that neck is causing migraines. She is seeing a pain specialist and he performed the ablation 06/02/19. He suggested pt see vestibular PT . Her migraine symptoms are: pressure occiput and wrap up over her head and pull on her brain. She feels her teeth quite often. Her Lyrica was doubled. She has constant SIFUENTES. Pt has nightmares about cracking of joints with relation to her injury. Sleeping is fitful. Bending over makes her the most dizzy. She states that she feels the dizziness when she goes to get back up. She feels like her head gets overpressured. Changing positions can get her. Leaning too far forward is troublesome. She feels like she needs to push herself into something to get tactile sensation. She feels like she needs to get a hold of herself. Pt reports pain rated 2-4 in her right arm and 4-7 in her neck. Jarring in car hurts her . She does report light- headedness. Her eyes feel tired. She had some floaters in the past. She denies hearing changes, tinnitus and dizziness rolling in the bed. She has sinus issues. She reports jaw tightness. She takes a B12 supplement and she had a deficiency. Pt reports she has trust issues with providers after the DO manipulation. She has occ numbness and tingling in right arm. She has shoulder lock-ups. Prior Treatments and Tests OT, PT MRI head and pt reports negative MRI/MRA head and neck with and without contrast Treatment Goals Patient/Caregiver Goals To get better, get back to work PT-OP-C Subjective Start: 07/30/19 12:16 Freq: Status: Active Protocol: Document 09/09/19 15:14 MB (Rec: 09/09/19 15:55 MB [id number]) OP-PT Subjective Patient Comments Patient Comments Pt states that she felt a little dizzy after Motion Sensitivity Quotient exercises but recovered from those symptoms in a couple of hours. Exercises are going okay. She is not happy about bending over still being a problem and she is waiting to receive compression tights in the mail . PT-OP-K Range of Motion Start: 07/30/19 12:16 Freq: Status: Active Protocol: Document 07/30/19 12:20 MB (Rec: 07/30/19 16:27 MB [id number]) Cervical Spine Range of Motion Cervical Spine Active Flexion 30 Extension 15 Rotation Left 40 Rotation Right 45 Comments Pt reports 5-6/10 pain with cervical extensio. She presents with left SB posture at rest that increases with left cervical rotation PT-OP-M Strength Start: 07/30/19 12:16 Freq: Status: Active Protocol: Document 07/30/19 12:20 MB (Rec: 07/30/19 16:27 MB [id number]) Shoulder Strength Shoulder Manual Muscle Testing Left Flexion 5 Normal Abduction (C5) 5 Normal Right Flexion 4 Good Abduction (C5) 4 Good Elbow/Forearm Strength Elbow and Forearm Manual Muscle Testing Left Flexion (C6) 5 Normal Extension (C7) 5 Normal Pronation 5 Normal Supination 5 Normal Right Flexion (C6) 5 Normal Extension (C7) 5 Normal Pronation 4 Good Supination 4 Good Wrist Strength Wrist Manual Muscle Testing Left Flexion (C7) 5 Normal Extension (C6) 5 Normal Right Flexion (C7) 5 Normal Extension (C6) 4 Good PT-OP-O Vestibular Start: 07/30/19 16:27 Freq: Status: Active Protocol: Document 07/30/19 12:20 MB (Rec: 07/30/19 16:29 MB [id number]) Vestibular Assessment Visual Testing Smooth Pursuits Horizontal Normal Smooth Pursuits Vertical Normal Saccades Horizontal Normal Gaze Evoked Nystagmus With Fixation Negative Convergence Test Impaired Spontaneous Nystagmus Negative Comments Vestibular Comments Pt denies tinnitus and hearing changes. She does state that she has sinus issues and teeth pain, mostly upper teeth. She states she clenches her jaw. PT-OP-Q Treatments Start: 07/30/19 12:16 Freq: Status: Active Protocol: Document 09/09/19 15:14 MB (Rec: 09/09/19 15:55 MB [id number]) Therapeutic Exercises Supine Exercises Chin tuck with towel under occiput in hook lying Comments 5 reps; pt cannot tolerate in quadriped this date EFT Comments D/cd d/t pt does not like Sitting Exercises Diaphragmatic breathing Comments Performed 2 reps this date Upper cervical isometric Comments Performed in sitting and pt requires cues for position DVA VOR exercises horizontal and vertical Comments 18 sec vertical nods 2/10 dizziness; 20 sec horizontal 2 /10 Standing Exercises Scapular retraction and shoulder ER with level 1 band Comments 5 reps performed today Racquet ball massage intrascapular muscles, infra Comments Performed today with cervical rotation intrascpular; AROM ER infra PT-OP-T Assessment and Plan Start: 07/30/19 12:16 Freq: Status: Active Protocol: Document 09/09/19 15:14 MB (Rec: 09/09/19 15:55 MB [id number]) Physical Therapy Assessment Rehab Potential Rehabilitation Potential Fair Evaluation Complexity Number of Personal Factors/Comorbidities 3 or More Number of Body Systems Impaired 4 or More Clinical Presentation at Evaluation Unstable Impairments Impairments Activity Tolerance,Balance, Coordination,Pain,Posture,ROM, Strength,Vestibular Other Impairments Decreased affect, inability to perform full work duties, occ difficulty driving d/t symptoms, taking multiple medications. Body systems include musculoskeletal, vestibular, psychosocial, neurological s/p nerve ablation. Her clinical picture is evolving to unstable. Goals 6 [facility] Goal (LTG) Pt will present with right shoulder flexion and abduction and right wrist supination, pronation and extension strength to 5/5 by 09/29/19. LTG Duration 8 weeks 5 [facility] Goal (LTG) Pt will perform progressive HEP including postural, VOR, intrascapular, core and shoulder strengthening, breathing and relaxation and balance exercises by 09/29/19. LTG Duration 8 weeks 4 [employer] Goal (LTG) Pt will report a 50% improvement in dizziness sxs by 09/29/19. LTG Duration 8 weeks 3 [employer] Goal (LTG) Pt will report a 50% improvement in neck pain by . LTG Duration 8 weeks 2 [employer] Member Goal (LTG) Pt will perform WNLs on a standardized balance test by . LTG Duration 8 weeks 1 Impairment DHI reflects moderate perception of handicap [employer] Member Goal (LTG) Pt will present with an improved DHI score to reflect no more than mild perception of handicap by 09/29/19. LTG Duration 8 weeks Assessment Summary Assessment Reviewed all HEP this date. Consider progress note next treatment date. Consider MWM SCM for pt to perform on her own. Also consider thoracic mobility, pect stretch. Quadriped neck flexor engagement not good this date- -upper traps and paraspinals engaged and pt reports she is uncomfortable. Physical Therapy Plan Frequency and Duration Frequency of Treatment 2x/Week Duration of Treatment 8 weeks Plan of Care Start Date 07/30/19 Plan of Care End Date 09/29/19 Therapeutic Interventions Therapeutic Interventions Balance Training,Canalithic Repositioning,Coordination Training,Home Exercise Program ,Manual Therapy,Neuromuscular Re-education,Patient/Caregiver Education,Self-Care/Home Management,Sensory Integration ,Soft Tissue Mobilization, Taping,Therapeutic Exercises, Vestibular Rehabilitation Next Visit Focus/Plan Next Note Type Progress Note Next Visit Plan Progress ongoing balance, relaxation exercises and deep neck flexor strengthening. Consider progressive plank, thoracic mobility
--- NOTE | 2019-09-12 09:26 | PT.OTN ---
Current Diagnoses Sprain of ligaments of cervical spine, initial encounter (09/12/19) Physical Therapy Treatment Note PT-OP-A Visit Information Start: 07/30/19 12:16 Freq: Status: Active Protocol: Document 09/12/19 08:15 MB (Rec: 09/12/19 09:15 MB [id number]) Out-Patient Physical Therapy Visit Information Visit Information Visit Type Treatment Note Visit Note Pt to contact doctor to get new order today Visit Start Time 08:15 Visit Stop Time 09:15 Total Visit Minutes 60 Visit Number 08/22 PT-OP-B Current Condition Start: 07/30/19 12:16 Freq: Status: Active Protocol: Document 07/30/19 12:20 MB (Rec: 07/30/19 13:05 MB [id number]) Current Condition History of Current Condition Onset Date 05/01/2018 History of Current Condition Pt went to DO for work-up for migraines. She had high velocity manipulation to her cervical spine and then started having severe neck pain on 05/11/18. She went to the ED and had a pain injection and Oxycontin. She started having vertigo. She did not drive much for 2 months. 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 She has been doing rehab for her neck strength. In May 2018, she started have right hand paresthesia and weakness. She ended up having ulnar nerve transposition 11/26. She then went to OT and got her strength back. She had ablation of C3-7 nerve roots to help with pain relief and increase neck ROM. Her headaches are not better. Her neck ROM is better. She now knows that neck is causing migraines. She is seeing a pain specialist and he performed the ablation 06/02/19. He suggested pt see vestibular PT . Her migraine symptoms are: pressure occiput and wrap up over her head and pull on her brain. She feels her teeth quite often. Her Lyrica was doubled. She has constant SIFUENTES. Pt has nightmares about cracking of joints with relation to her injury. Sleeping is fitful. Bending over makes her the most dizzy. She states that she feels the dizziness when she goes to get back up. She feels like her head gets overpressured. Changing positions can get her. Leaning too far forward is troublesome. She feels like she needs to push herself into something to get tactile sensation. She feels like she needs to get a hold of herself. Pt reports pain rated 2-4 in her right arm and 4-7 in her neck. Jarring in car hurts her . She does report light- headedness. Her eyes feel tired. She had some floaters in the past. She denies hearing changes, tinnitus and dizziness rolling in the bed. She has sinus issues. She reports jaw tightness. She takes a B12 supplement and she had a deficiency. Pt reports she has trust issues with providers after the DO manipulation. She has occ numbness and tingling in right arm. She has shoulder lock-ups. Prior Treatments and Tests OT, PT MRI head and pt reports negative MRI/MRA head and neck with and without contrast Treatment Goals Patient/Caregiver Goals To get better, get back to work PT-OP-C Subjective Start: 07/30/19 12:16 Freq: Status: Active Protocol: Document 09/12/19 08:15 MB (Rec: 09/12/19 09:15 MB [id number]) OP-PT Subjective Patient Comments Patient Comments Pt states that she is really stiff today. Her back is bothering her and this affects her posture and neck mobility . Overall since starting PT, she notices some mild improvement in neck pain and dizziness. She is weaning off some medications and is working more. PT-OP-K Range of Motion Start: 07/30/19 12:16 Freq: Status: Active Protocol: Document 07/30/19 12:20 MB (Rec: 07/30/19 16:27 MB [id number]) Cervical Spine Range of Motion Cervical Spine Active Flexion 30 Extension 15 Rotation Left 40 Rotation Right 45 Comments Pt reports 5-6/10 pain with cervical extensio. She presents with left SB posture at rest that increases with left cervical rotation PT-OP-M Strength Start: 07/30/19 12:16 Freq: Status: Active Protocol: Document 07/30/19 12:20 MB (Rec: 07/30/19 16:27 MB [id number]) Shoulder Strength Shoulder Manual Muscle Testing Left Flexion 5 Normal Abduction (C5) 5 Normal Right Flexion 4 Good Abduction (C5) 4 Good Elbow/Forearm Strength Elbow and Forearm Manual Muscle Testing Left Flexion (C6) 5 Normal Extension (C7) 5 Normal Pronation 5 Normal Supination 5 Normal Right Flexion (C6) 5 Normal Extension (C7) 5 Normal Pronation 4 Good Supination 4 Good Wrist Strength Wrist Manual Muscle Testing Left Flexion (C7) 5 Normal Extension (C6) 5 Normal Right Flexion (C7) 5 Normal Extension (C6) 4 Good PT-OP-O Vestibular Start: 07/30/19 16:27 Freq: Status: Active Protocol: Document 07/30/19 12:20 MB (Rec: 07/30/19 16:29 MB [id number]) Vestibular Assessment Visual Testing Smooth Pursuits Horizontal Normal Smooth Pursuits Vertical Normal Saccades Horizontal Normal Gaze Evoked Nystagmus With Fixation Negative Convergence Test Impaired Spontaneous Nystagmus Negative Comments Vestibular Comments Pt denies tinnitus and hearing changes. She does state that she has sinus issues and teeth pain, mostly upper teeth. She states she clenches her jaw. PT-OP-Q Treatments Start: 07/30/19 12:16 Freq: Status: Active Protocol: Document 09/12/19 08:15 MB (Rec: 09/12/19 09:15 MB [id number]) Therapeutic Exercises Supine Exercises Pelvic realignment exercises to asst with postural changes, neck movement Comments Ed pt today all three exercises, added to HEP Diaphragmatic breathing Comments Performed today Therapeutic Activity Therapeutic Activity Motion Sensitivity Quotient Comments Today, performed bending down to the right x4 in standing and sitting to pick up operator and don and doff shoes. She did not perform multiple reps at a time and feels that multiple reps would increase dizziness symptoms. Orthostatic testing also today with 2 trials of supine to stand and pt does not report dizziness and her BP does not drop today Neuro Re-Education Treatment Balance Activities Romberg with EO and EC Comments EO normal; LOB after 2 sec with EC, will benefit from further balance training Coordination Activities FGA Details This is a balance activity, not coordination Comments FGA for standardized balance assessment and pt has most trouble with turn pivot and walking with eyes closed. It appears that turning and decreased vision use invoke the most imbalance and sxs PT-OP-T Assessment and Plan Start: 07/30/19 12:16 Freq: Status: Active Protocol: Document 09/12/19 08:15 MB (Rec: 09/12/19 09:15 MB [id number]) Physical Therapy Assessment Rehab Potential Rehabilitation Potential Fair Evaluation Complexity Number of Personal Factors/Comorbidities 3 or More Number of Body Systems Impaired 4 or More Clinical Presentation at Evaluation Unstable Impairments Impairments Activity Tolerance,Balance, Coordination,Pain,Posture,ROM, Strength,Vestibular Other Impairments Decreased affect, inability to perform full work duties, occ difficulty driving d/t symptoms, taking multiple medications. Body systems include musculoskeletal, vestibular, psychosocial, neurological s/p nerve ablation. Her clinical picture is evolving to unstable. Goals Imbalance Long-Term Goal (LTG) Pt will perform Romberg with eyes closed and socks only for at least 30 sec to decrease fall risk by 11/11/2019. 09/12/2019: LOB posteriorly 2 sec and requires asst to prevent fall LTG Duration 8 weeks 6 [employer] Goal (LTG) Pt will present with right shoulder flexion and abduction and right wrist supination, pronation and extension strength to 5/5 by 09/29/2019. 09/12/2019: Pt presents with 5/5 above MMT. LTG Duration 8 weeks 5 [employer] Goal (LTG) Pt will perform progressive HEP including postural, VOR, intrascapular, core and shoulder strengthening, breathing and relaxation and balance exercises to return to prior active LOF by 11/11/2019. 09/12/2019: Pt has been performing HEP as able d/t work constraints LTG Duration 8 weeks 4 [employer] Goal (LTG) Pt will report a 50% improvement in dizziness sxs to decrease fall risk by 2019. 09/12/2019: Pt reports an 8% improvement in dizziness since starting PT. She is at work longer and is off one med completely and is weaning off Bupropion. LTG Duration 8 weeks 3 [employer] Goal (LTG) Pt will report a 50% improvement in neck pain to improve cervical ROM with VOR exercises by 11/11/2019. 09/12/2019: Pt reports a 5% improvement in neck pain since starting PT. She thinks the VOR exercise side to side is helpful. The vertical nods are still troublesome. LTG Duration 8 weeks 2 Long-Term Goal (LTG) Pt will perform WNLs on Functional Gait Index to decrease fall risk by 11/11/2019 . 09/12/2019:FGA 24/30 LTG Duration 8 weeks 1 Impairment DHI reflects moderate perception of handicap [employer] Goal (LTG) Pt will present with an improved DHI score to reflect no more than mild perception of handicap by 11/11/2019. 09/12/2019: DHI score reflects 42%, moderate perception of handicap LTG Duration 8 weeks Assessment Summary Assessment Pt has made small progress towards the following PT goals since starting PT: DHI score, reports of improvement in neck pain and dizziness, performance of exercises, UE strength and balance. She performs exercises as able but has had work constraints. She is ablet to work more hours. She reports improvement in VOR eye chart exercises with horizontal head turns. Some barriers to PT have been work stressors and fluctuating BP. Orthostatic assessment this date with BP & HR in LUE: supine 114/83, 65; standing 114/86, 78; standing 30 sec 116/88, 80; 119/95, 86. She is awaiting compression garments and this might help with dizziness with bending over as determined by Motion Sensitivity Quotient testing. She is trying to drink more water but has trouble at work. Pt will benefit from ongoing PT to further progress postural, ROM VOR and balance exercises in order to return to PLOF. Postural exercises include pelvic alignment and core and shoulder and intrascapular strengthening. Consider MWM SCM for pt to perform on her own. Also consider thoracic mobility, pect stretch. Physical Therapy Plan Frequency and Duration Frequency of Treatment 2x/Week Duration of Treatment 8 weeks Plan of Care Start Date 09/12/19 Plan of Care End Date 11/11/19 Therapeutic Interventions Therapeutic Interventions Balance Training,Canalithic Repositioning,Coordination Training,Home Exercise Program ,Manual Therapy,Neuromuscular Re-education,Patient/Caregiver Education,Self-Care/Home Management,Sensory Integration ,Soft Tissue Mobilization, Taping,Therapeutic Exercises, Vestibular Rehabilitation Next Visit Focus/Plan Next Note Type Progress Note Next Visit Plan Progress ongoing balance, relaxation exercises and deep neck flexor strengthening. Consider progressive plank, thoracic mobility
--- NOTE | 2019-09-12 09:26 | PT.OPPOC ---
Physical, Occupational & Speech Therapy At [facility] Current Diagnoses Sprain of ligaments of cervical spine, initial encounter (09/12/19) Visit Care Team Role Provider Type Pelon Bates MD Primary Care Provider Non-Staff Specialty: Family Practice Address: [address] [place] [address], [id number] Email: Judie Osorio MD Attending Provider Non-Staff Specialty: Medical Address: [address] [place] [address], [id number] Email: Plan Of Care PT-OP-T Assessment and Plan Start: 07/30/19 12:16 Freq: Status: Active Protocol: Document 09/12/19 08:15 MB (Rec: 09/12/19 09:15 MB [id number]) Physical Therapy Assessment Rehab Potential Rehabilitation Potential Fair Evaluation Complexity Number of Personal Factors/Comorbidities 3 or More Number of Body Systems Impaired 4 or More Clinical Presentation at Evaluation Unstable Impairments Impairments Activity Tolerance,Balance, Coordination,Pain,Posture,ROM, Strength,Vestibular Other Impairments Decreased affect, inability to perform full work duties, occ difficulty driving d/t symptoms, taking multiple medications. Body systems include musculoskeletal, vestibular, psychosocial, neurological s/p nerve ablation. Her clinical picture is evolving to unstable. Goals Imbalance Detention Goal (LTG) Pt will perform Romberg with eyes closed and socks only for at least 30 sec to decrease fall risk by 11/11/2019. 09/12/2019: LOB posteriorly 2 sec and requires asst to prevent fall LTG Duration 8 weeks 6 Engineering Manager Goal (LTG) Pt will present with right shoulder flexion and abduction and right wrist supination, pronation and extension strength to 5/5 by 09/29/2019. 09/12/2019: Pt presents with 5/5 above MMT. LTG Duration 8 weeks 5 Detention Goal (LTG) Pt will perform progressive HEP including postural, VOR, intrascapular, core and shoulder strengthening, breathing and relaxation and balance exercises to return to prior active LOF by 11/11/2019. 09/12/2019: Pt has been performing HEP as able d/t work constraints LTG Duration 8 weeks 4 Engineering Manager Goal (LTG) Pt will report a 50% improvement in dizziness sxs to decrease fall risk by 2019. 09/12/2019: Pt reports an 8% improvement in dizziness since starting PT. She is at work longer and is off one med completely and is weaning off Bupropion. LTG Duration 8 weeks 3 Detention Goal (LTG) Pt will report a 50% improvement in neck pain to improve cervical ROM with VOR exercises by 11/11/2019. 09/12/2019: Pt reports a 5% improvement in neck pain since starting PT. She thinks the VOR exercise side to side is helpful. The vertical nods are still troublesome. LTG Duration 8 weeks 2 Engineering Manager Goal (LTG) Pt will perform WNLs on Functional Gait Index to decrease fall risk by 11/11/2019 . 09/12/2019:FGA 24 LTG Duration 8 weeks 1 Impairment DHI reflects moderate perception of handicap Detention Goal (LTG) Pt will present with an improved DHI score to reflect no more than mild perception of handicap by 11/11/2019. 09/12/2019: DHI score reflects 42%, moderate perception of handicap LTG Duration 8 weeks Assessment Summary Assessment Pt has made small progress towards the following PT goals since starting PT: DHI score, reports of improvement in neck pain and dizziness, performance of exercises, UE strength and balance. She performs exercises as able but has had work constraints. She is ablet to work more hours. She reports improvement in VOR eye chart exercises with horizontal head turns. Some barriers to PT have been work stressors and fluctuating BP. Orthostatic assessment this date with BP & HR in LUE: supine 114/83, 65; standing 114/86, 78; standing 30 sec 116/88, 80; 119/95, 86. She is awaiting compression garments and this might help with dizziness with bending over as determined by Motion Sensitivity Quotient testing. She is trying to drink more water but has trouble at work. Pt will benefit from ongoing PT to further progress postural, ROM VOR and balance exercises in order to return to PLOF. Postural exercises include pelvic alignment and core and shoulder and intrascapular strengthening. Consider MWM SCM for pt to perform on her own. Also consider thoracic mobility, pect stretch. Physical Therapy Plan Frequency and Duration Frequency of Treatment 2x/Week Duration of Treatment 8 weeks Plan of Care Start Date 09/12/19 Plan of Care End Date 11/11/19 Therapeutic Interventions Therapeutic Interventions Balance Training,Canalithic Repositioning,Coordination Training,Home Exercise Program ,Manual Therapy,Neuromuscular Re-education,Patient/Caregiver Education,Self-Care/Home Management,Sensory Integration ,Soft Tissue Mobilization, Taping,Therapeutic Exercises, Vestibular Rehabilitation Next Visit Focus/Plan Next Note Type Progress Note Next Visit Plan Progress ongoing balance, relaxation exercises and deep neck flexor strengthening. Consider progressive plank, thoracic mobility Plan of Care Dates Plan of Care Start Date 09/12/19 Plan of Care End Date 11/11/19 Electronically Signed by: Brenna Sanford, PT 09/12/19 0926 Please Sign and Return: I have reviewed this Plan of Care and certify that the skilled therapy services above are required to meet the patient?s needs. Physician Signature Date Printed Name and Credentials Clinical Instructor Signature Printed Name and Credentials
--- NOTE | 2019-09-16 09:01 | PT.OTN ---
Current Diagnoses Sprain of ligaments of cervical spine, initial encounter (09/16/19) Physical Therapy Treatment Note PT-OP-A Visit Information Start: 07/30/19 12:16 Freq: Status: Active Protocol: Document 09/16/19 08:18 MB (Rec: 09/16/19 09:01 MB [id number]) Out-Patient Physical Therapy Visit Information Visit Information Visit Type Treatment Note Visit Note Awaiting communication about new auth Visit Start Time 08:18 Visit Stop Time 08:58 Total Visit Minutes 40 Visit Number PT-OP-B Current Condition Start: 07/30/19 12:16 Freq: Status: Active Protocol: Document 07/30/19 12:20 MB (Rec: 07/30/19 13:05 MB [id number]) Current Condition History of Current Condition Onset Date 05/01/2018 History of Current Condition Pt went to DO for work-up for migraines. She had high velocity manipulation to her cervical spine and then started having severe neck pain on 05/11/18. She went to the ED and had a pain injection and Oxycontin. She started having vertigo. She did not drive much for 2 months. 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 She has been doing rehab for her neck strength. In May 2018, she started have right hand paresthesia and weakness. She ended up having ulnar nerve transposition 11/26. She then went to OT and got her strength back. She had ablation of C3-7 nerve roots to help with pain relief and increase neck ROM. Her headaches are not better. Her neck ROM is better. She now knows that neck is causing migraines. She is seeing a pain specialist and he performed the ablation 06/02/19. He suggested pt see vestibular PT . Her migraine symptoms are: pressure occiput and wrap up over her head and pull on her brain. She feels her teeth quite often. Her Lyrica was doubled. She has constant SIFUENTES. Pt has nightmares about cracking of joints with relation to her injury. Sleeping is fitful. Bending over makes her the most dizzy. She states that she feels the dizziness when she goes to get back up. She feels like her head gets overpressured. Changing positions can get her. Leaning too far forward is troublesome. She feels like she needs to push herself into something to get tactile sensation. She feels like she needs to get a hold of herself. Pt reports pain rated 2-4 in her right arm and 4-7 in her neck. Jarring in car hurts her . She does report light- headedness. Her eyes feel tired. She had some floaters in the past. She denies hearing changes, tinnitus and dizziness rolling in the bed. She has sinus issues. She reports jaw tightness. She takes a B12 supplement and she had a deficiency. Pt reports she has trust issues with providers after the DO manipulation. She has occ numbness and tingling in right arm. She has shoulder lock-ups. Prior Treatments and Tests OT, PT MRI head and pt reports negative MRI/MRA head and neck with and without contrast Treatment Goals Patient/Caregiver Goals To get better, get back to work PT-OP-C Subjective Start: 07/30/19 12:16 Freq: Status: Active Protocol: Document 09/16/19 08:18 MB (Rec: 09/16/19 09:01 MB [id number]) OP-PT Subjective Patient Comments Patient Comments Pt received compression pants but they might not be very compressive. She is awaiting her second pair. PT-OP-K Range of Motion Start: 07/30/19 12:16 Freq: Status: Active Protocol: Document 07/30/19 12:20 MB (Rec: 07/30/19 16:27 MB [id number]) Cervical Spine Range of Motion Cervical Spine Active Flexion 30 Extension 15 Rotation Left 40 Rotation Right 45 Comments Pt reports 5-6/10 pain with cervical extensio. She presents with left SB posture at rest that increases with left cervical rotation PT-OP-M Strength Start: 07/30/19 12:16 Freq: Status: Active Protocol: Document 07/30/19 12:20 MB (Rec: 07/30/19 16:27 MB [id number]) Shoulder Strength Shoulder Manual Muscle Testing Left Flexion 5 Normal Abduction (C5) 5 Normal Right Flexion 4 Good Abduction (C5) 4 Good Elbow/Forearm Strength Elbow and Forearm Manual Muscle Testing Left Flexion (C6) 5 Normal Extension (C7) 5 Normal Pronation 5 Normal Supination 5 Normal Right Flexion (C6) 5 Normal Extension (C7) 5 Normal Pronation 4 Good Supination 4 Good Wrist Strength Wrist Manual Muscle Testing Left Flexion (C7) 5 Normal Extension (C6) 5 Normal Right Flexion (C7) 5 Normal Extension (C6) 4 Good PT-OP-O Vestibular Start: 07/30/19 16:27 Freq: Status: Active Protocol: Document 07/30/19 12:20 MB (Rec: 07/30/19 16:29 MB [id number]) Vestibular Assessment Visual Testing Smooth Pursuits Horizontal Normal Smooth Pursuits Vertical Normal Saccades Horizontal Normal Gaze Evoked Nystagmus With Fixation Negative Convergence Test Impaired Spontaneous Nystagmus Negative Comments Vestibular Comments Pt denies tinnitus and hearing changes. She does state that she has sinus issues and teeth pain, mostly upper teeth. She states she clenches her jaw. PT-OP-Q Treatments Start: 07/30/19 12:16 Freq: Status: Active Protocol: Document 09/16/19 08:18 MB (Rec: 09/16/19 09:01 [id number]) Therapeutic Exercises Sitting Exercises Reaching down to right and left to picking crew supervisor shoe, place on mat and then return Comments 10 reps each side then 5/10 dizziness. 3/10 dizziness after 1' rest Standing Exercises Fencing with hits up and down and side to side Comments Moving down to up most troublesome, 3 sets 30 sec break Reaching down for cones and half turn to place to right and left Comments 4/10 dizziness after pivot to right; 3/10 left moves faster Reaching down for cones and placing to right, rest and then to left 8 cones, 1' rest Comments 3/10 dizziness after right; similar to the left 1 rep each side Manual Therapy Treatment Manual Techniques KT to promote scapular retraction Comments B to promote retraction PT-OP-T Assessment and Plan Start: 07/30/19 12:16 Freq: Status: Active Protocol: Document 09/16/19 08:18 MB (Rec: 09/16/19 09:01 MB [id number]) Physical Therapy Assessment Rehab Potential Rehabilitation Potential Fair Evaluation Complexity Number of Personal Factors/Comorbidities 3 or More Number of Body Systems Impaired 4 or More Clinical Presentation at Evaluation Unstable Impairments Impairments Activity Tolerance,Balance, Coordination,Pain,Posture,ROM, Strength,Vestibular Other Impairments Decreased affect, inability to perform full work duties, occ difficulty driving d/t symptoms, taking multiple medications. Body systems include musculoskeletal, vestibular, psychosocial, neurological s/p nerve ablation. Her clinical picture is evolving to unstable. Goals Imbalance Instrument Repairer Helper Goal (LTG) Pt will perform Romberg with eyes closed and socks only for at least 30 sec to decrease fall risk by 11/11/2019. 09/12/2019: LOB posteriorly 2 sec and requires asst to prevent fall LTG Duration 8 weeks 6 Instrument Repairer Helper Goal (LTG) Pt will present with right shoulder flexion and abduction and right wrist supination, pronation and extension strength to 5/5 by 09/29/2019. 09/12/2019: Pt presents with 5/5 above MMT. LTG Duration 8 weeks 5 Instrument Repairer Helper Goal (LTG) Pt will perform progressive HEP including postural, VOR, intrascapular, core and shoulder strengthening, breathing and relaxation and balance exercises to return to prior active LOF by 11/11/2019. 09/12/2019: Pt has been performing HEP as able d/t work constraints LTG Duration 8 weeks 4 Custodial Goal (LTG) Pt will report a 50% improvement in dizziness sxs to decrease fall risk by 2019. 09/12/2019: Pt reports an 8% improvement in dizziness since starting PT. She is at work longer and is off one med completely and is weaning off Bupropion. LTG Duration 8 weeks 3 Instrument Repairer Helper Goal (LTG) Pt will report a 50% improvement in neck pain to improve cervical ROM with VOR exercises by 11/11/2019. 09/12/2019: Pt reports a 5% improvement in neck pain since starting PT. She thinks the VOR exercise side to side is helpful. The vertical nods are still troublesome. LTG Duration 8 weeks 2 Custodial Goal (LTG) Pt will perform WNLs on Functional Gait Index to decrease fall risk by 11/11/2019 . 09/12/2019:FGA 24 LTG Duration 8 weeks 1 Impairment DHI reflects moderate perception of handicap Custodial Goal (LTG) Pt will present with an improved DHI score to reflect no more than mild perception of handicap by 11/11/2019. 09/12/2019: DHI score reflects 42%, moderate perception of handicap LTG Duration 8 weeks Assessment Summary Assessment Pt wears compression today, may not be compressive enough. Initiated bending and picking up cones today, most difficult when on floor and turn to put up on mat. Con't this type of exercise as well as exercises with decreased visual cues. Consider MWM SCM for pt to perform on her own. Also consider thoracic mobility, pect stretch. Con't balance exercises. Physical Therapy Plan Frequency and Duration Frequency of Treatment 2x/Week Duration of Treatment 8 weeks Plan of Care Start Date 09/12/19 Plan of Care End Date 11/11/19 Therapeutic Interventions Therapeutic Interventions Balance Training,Canalithic Repositioning,Coordination Training,Home Exercise Program ,Manual Therapy,Neuromuscular Re-education,Patient/Caregiver Education,Self-Care/Home Management,Sensory Integration ,Soft Tissue Mobilization, Taping,Therapeutic Exercises, Vestibular Rehabilitation Next Visit Focus/Plan Next Note Type Progress Note Next Visit Plan Progress ongoing balance, relaxation exercises and deep neck flexor strengthening. Consider progressive plank, thoracic mobility
--- NOTE | 2019-09-18 09:00 | PT.OTN ---
Current Diagnoses Sprain of ligaments of cervical spine, initial encounter (09/18/19) Physical Therapy Treatment Note PT-OP-A Visit Information Start: 07/30/19 12:16 Freq: Status: Active Protocol: Document 09/18/19 08:20 MB (Rec: 09/18/19 09:00 MB [id number]) Out-Patient Physical Therapy Visit Information Visit Information Visit Type Treatment Note Visit Note New auth 12 visits Visit Start Time 08:20 Visit Stop Time 09:00 Total Visit Minutes 40 Visit Number 09/21 PT-OP-B Current Condition Start: 07/30/19 12:16 Freq: Status: Active Protocol: Document 07/30/19 12:20 MB (Rec: 07/30/19 13:05 MB [id number]) Current Condition History of Current Condition Onset Date 05/01/2018 History of Current Condition Pt went to DO for work-up for migraines. She had high velocity manipulation to her cervical spine and then started having severe neck pain on 05/11/18. She went to the ED and had a pain injection and Oxycontin. She started having vertigo. She did not drive much for 2 months. 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 She has been doing rehab for her neck strength. In May 2018, she started have right hand paresthesia and weakness. She ended up having ulnar nerve transposition 11/26. She then went to OT and got her strength back. She had ablation of C3-7 nerve roots to help with pain relief and increase neck ROM. Her headaches are not better. Her neck ROM is better. She now knows that neck is causing migraines. She is seeing a pain specialist and he performed the ablation 06/02/19. He suggested pt see vestibular PT . Her migraine symptoms are: pressure occiput and wrap up over her head and pull on her brain. She feels her teeth quite often. Her Lyrica was doubled. She has constant SIFUENTES. Pt has nightmares about cracking of joints with relation to her injury. Sleeping is fitful. Bending over makes her the most dizzy. She states that she feels the dizziness when she goes to get back up. She feels like her head gets overpressured. Changing positions can get her. Leaning too far forward is troublesome. She feels like she needs to push herself into something to get tactile sensation. She feels like she needs to get a hold of herself. Pt reports pain rated 2-4 in her right arm and 4-7 in her neck. Jarring in car hurts her . She does report light- headedness. Her eyes feel tired. She had some floaters in the past. She denies hearing changes, tinnitus and dizziness rolling in the bed. She has sinus issues. She reports jaw tightness. She takes a B12 supplement and she had a deficiency. Pt reports she has trust issues with providers after the DO manipulation. She has occ numbness and tingling in right arm. She has shoulder lock-ups. Prior Treatments and Tests OT, PT MRI head and pt reports negative MRI/MRA head and neck with and without contrast Treatment Goals Patient/Caregiver Goals To get better, get back to work PT-OP-C Subjective Start: 07/30/19 12:16 Freq: Status: Active Protocol: Document 09/18/19 08:20 MB (Rec: 09/18/19 09:00 MB [id number]) OP-PT Subjective Patient Comments Patient Comments Pt was symptomatic for 20-25 minutes after balance and VOR exercises. She does feel that the exercises were helpful. She could sense her ears more. She is wearing new compression pants today and they roll down. PT-OP-K Range of Motion Start: 07/30/19 12:16 Freq: Status: Active Protocol: Document 07/30/19 12:20 MB (Rec: 07/30/19 16:27 MB [id number]) Cervical Spine Range of Motion Cervical Spine Active Flexion 30 Extension 15 Rotation Left 40 Rotation Right 45 Comments Pt reports 5-6/10 pain with cervical extensio. She presents with left SB posture at rest that increases with left cervical rotation PT-OP-M Strength Start: 07/30/19 12:16 Freq: Status: Active Protocol: Document 07/30/19 12:20 MB (Rec: 07/30/19 16:27 MB [id number]) Shoulder Strength Shoulder Manual Muscle Testing Left Flexion 5 Normal Abduction (C5) 5 Normal Right Flexion 4 Good Abduction (C5) 4 Good Elbow/Forearm Strength Elbow and Forearm Manual Muscle Testing Left Flexion (C6) 5 Normal Extension (C7) 5 Normal Pronation 5 Normal Supination 5 Normal Right Flexion (C6) 5 Normal Extension (C7) 5 Normal Pronation 4 Good Supination 4 Good Wrist Strength Wrist Manual Muscle Testing Left Flexion (C7) 5 Normal Extension (C6) 5 Normal Right Flexion (C7) 5 Normal Extension (C6) 4 Good PT-OP-O Vestibular Start: 07/30/19 16:27 Freq: Status: Active Protocol: Document 07/30/19 12:20 MB (Rec: 07/30/19 16:29 MB [id number]) Vestibular Assessment Visual Testing Smooth Pursuits Horizontal Normal Smooth Pursuits Vertical Normal Saccades Horizontal Normal Gaze Evoked Nystagmus With Fixation Negative Convergence Test Impaired Spontaneous Nystagmus Negative Comments Vestibular Comments Pt denies tinnitus and hearing changes. She does state that she has sinus issues and teeth pain, mostly upper teeth. She states she clenches her jaw. PT-OP-Q Treatments Start: 07/30/19 12:16 Freq: Status: Active Protocol: Document 09/18/19 08:20 MB (Rec: 09/18/19 09:00 [id number]) Therapeutic Exercises Supine Exercises Self-massage B SCM and MWM with active cervical rotation Comments Taught in supine with cervical support Diaphragmatic breathing Comments Performed today after self- massage Manual Therapy Treatment Manual Techniques STM B SCM this date Comments Also performed on posterior scalene today, as well as SMC, pt perform active cervical rotation and PT performing trigger point pressure. Also performed Counterstrain scan and performed treatment to B ALL, cervical spine. She will benefit from further Counterstrain assessment and treatment. PT-OP-T Assessment and Plan Start: 07/30/19 12:16 Freq: Status: Active Protocol: Document 09/18/19 08:20 MB (Rec: 09/18/19 09:00 [id number]) Physical Therapy Assessment Rehab Potential Rehabilitation Potential Fair Evaluation Complexity Number of Personal Factors/Comorbidities 3 or More Number of Body Systems Impaired 4 or More Clinical Presentation at Evaluation Unstable Impairments Impairments Activity Tolerance,Balance, Coordination,Pain,Posture,ROM, Strength,Vestibular Other Impairments Decreased affect, inability to perform full work duties, occ difficulty driving d/t symptoms, taking multiple medications. Body systems include musculoskeletal, vestibular, psychosocial, neurological s/p nerve ablation. Her clinical picture is evolving to unstable. Goals Imbalance [facility] Goal (LTG) Pt will perform Romberg with eyes closed and socks only for at least 30 sec to decrease fall risk by 11/11/2019. 09/12/2019: LOB posteriorly 2 sec and requires asst to prevent fall LTG Duration 8 weeks 6 [employer] Goal (LTG) Pt will present with right shoulder flexion and abduction and right wrist supination, pronation and extension strength to 5/5 by 09/29/2019. 09/12/2019: Pt presents with 5/5 above MMT. LTG Duration 8 weeks 5 [facility] Goal (LTG) Pt will perform progressive HEP including postural, VOR, intrascapular, core and shoulder strengthening, breathing and relaxation and balance exercises to return to prior active LOF by 11/11/2019. 09/12/2019: Pt has been performing HEP as able d/t work constraints LTG Duration 8 weeks 4 [facility] Goal (LTG) Pt will report a 50% improvement in dizziness sxs to decrease fall risk by 2019. 09/12/2019: Pt reports an 8% improvement in dizziness since starting PT. She is at work longer and is off one med completely and is weaning off Bupropion. LTG Duration 8 weeks 3 [employer] Goal (LTG) Pt will report a 50% improvement in neck pain to improve cervical ROM with VOR exercises by 11/11/2019. 09/12/2019: Pt reports a 5% improvement in neck pain since starting PT. She thinks the VOR exercise side to side is helpful. The vertical nods are still troublesome. LTG Duration 8 weeks 2 [facility] Goal (LTG) Pt will perform WNLs on Functional Gait Index to decrease fall risk by 11/11/2019 . 09/12/2019:FGA 24/30 LTG Duration 8 weeks 1 Impairment DHI reflects moderate perception of handicap [facility] Goal (LTG) Pt will present with an improved DHI score to reflect no more than mild perception of handicap by 11/11/2019. 09/12/2019: DHI score reflects 42%, moderate perception of handicap LTG Duration 8 weeks Assessment Summary Assessment Initiated self- MWM SCM for pt to perform on her own. Consider thoracic mobility, pect stretch. Con't balance exercises and manual work as needed. Consider Counterstrain next PT treatment. Physical Therapy Plan Frequency and Duration Frequency of Treatment 2x/Week Duration of Treatment 8 weeks Plan of Care Start Date 09/12/19 Plan of Care End Date 11/11/19 Therapeutic Interventions Therapeutic Interventions Balance Training,Canalithic Repositioning,Coordination Training,Home Exercise Program ,Manual Therapy,Neuromuscular Re-education,Patient/Caregiver Education,Self-Care/Home Management,Sensory Integration ,Soft Tissue Mobilization, Taping,Therapeutic Exercises, Vestibular Rehabilitation Next Visit Focus/Plan Next Note Type Progress Note Next Visit Plan Progress ongoing balance, relaxation exercises and deep neck flexor strengthening. Consider progressive plank, thoracic mobility
--- NOTE | 2019-09-23 09:00 | PT.OTN ---
Current Diagnoses Sprain of ligaments of cervical spine, initial encounter (09/23/19) Physical Therapy Treatment Note PT-OP-A Visit Information Start: 07/30/19 12:16 Freq: Status: Active Protocol: Document 09/23/19 08:16 MB (Rec: 09/23/19 09:00 MB [id number]) Out-Patient Physical Therapy Visit Information Visit Information Visit Type Treatment Note Visit Note New auth 12 visits Visit Start Time 08:16 Visit Stop Time 08:56 Total Visit Minutes 40 Visit Number 10/22 PT-OP-B Current Condition Start: 07/30/19 12:16 Freq: Status: Active Protocol: Document 07/30/19 12:20 MB (Rec: 07/30/19 13:05 MB [id number]) Current Condition History of Current Condition Onset Date 05/01/2018 History of Current Condition Pt went to DO for work-up for migraines. She had high velocity manipulation to her cervical spine and then started having severe neck pain on 05/11/18. She went to the ED and had a pain injection and Oxycontin. She started having vertigo. She did not drive much for 2 months. 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 She has been doing rehab for her neck strength. In May 2018, she started have right hand paresthesia and weakness. She ended up having ulnar nerve transposition 11/26. She then went to OT and got her strength back. She had ablation of C3-7 nerve roots to help with pain relief and increase neck ROM. Her headaches are not better. Her neck ROM is better. She now knows that neck is causing migraines. She is seeing a pain specialist and he performed the ablation 06/02/19. He suggested pt see vestibular PT . Her migraine symptoms are: pressure occiput and wrap up over her head and pull on her brain. She feels her teeth quite often. Her Lyrica was doubled. She has constant SIFUENTES. Pt has nightmares about cracking of joints with relation to her injury. Sleeping is fitful. Bending over makes her the most dizzy. She states that she feels the dizziness when she goes to get back up. She feels like her head gets overpressured. Changing positions can get her. Leaning too far forward is troublesome. She feels like she needs to push herself into something to get tactile sensation. She feels like she needs to get a hold of herself. Pt reports pain rated 2-4 in her right arm and 4-7 in her neck. Jarring in car hurts her . She does report light- headedness. Her eyes feel tired. She had some floaters in the past. She denies hearing changes, tinnitus and dizziness rolling in the bed. She has sinus issues. She reports jaw tightness. She takes a B12 supplement and she had a deficiency. Pt reports she has trust issues with providers after the DO manipulation. She has occ numbness and tingling in right arm. She has shoulder lock-ups. Prior Treatments and Tests OT, PT MRI head and pt reports negative MRI/MRA head and neck with and without contrast Treatment Goals Patient/Caregiver Goals To get better, get back to work PT-OP-C Subjective Start: 07/30/19 12:16 Freq: Status: Active Protocol: Document 09/23/19 08:16 MB (Rec: 09/23/19 09:00 MB [id number]) OP-PT Subjective Patient Comments Patient Comments Pt is wearing a back brace and LE compression today. She might have to help a glass designer move today. PT-OP-K Range of Motion Start: 07/30/19 12:16 Freq: Status: Active Protocol: Document 07/30/19 12:20 MB (Rec: 07/30/19 16:27 MB [id number]) Cervical Spine Range of Motion Cervical Spine Active Flexion 30 Extension 15 Rotation Left 40 Rotation Right 45 Comments Pt reports 5-6/10 pain with cervical extensio. She presents with left SB posture at rest that increases with left cervical rotation PT-OP-M Strength Start: 07/30/19 12:16 Freq: Status: Active Protocol: Document 07/30/19 12:20 MB (Rec: 07/30/19 16:27 MB [id number]) Shoulder Strength Shoulder Manual Muscle Testing Left Flexion 5 Normal Abduction (C5) 5 Normal Right Flexion 4 Good Abduction (C5) 4 Good Elbow/Forearm Strength Elbow and Forearm Manual Muscle Testing Left Flexion (C6) 5 Normal Extension (C7) 5 Normal Pronation 5 Normal Supination 5 Normal Right Flexion (C6) 5 Normal Extension (C7) 5 Normal Pronation 4 Good Supination 4 Good Wrist Strength Wrist Manual Muscle Testing Left Flexion (C7) 5 Normal Extension (C6) 5 Normal Right Flexion (C7) 5 Normal Extension (C6) 4 Good PT-OP-O Vestibular Start: 07/30/19 16:27 Freq: Status: Active Protocol: Document 07/30/19 12:20 MB (Rec: 07/30/19 16:29 MB [id number]) Vestibular Assessment Visual Testing Smooth Pursuits Horizontal Normal Smooth Pursuits Vertical Normal Saccades Horizontal Normal Gaze Evoked Nystagmus With Fixation Negative Convergence Test Impaired Spontaneous Nystagmus Negative Comments Vestibular Comments Pt denies tinnitus and hearing changes. She does state that she has sinus issues and teeth pain, mostly upper teeth. She states she clenches her jaw. PT-OP-Q Treatments Start: 07/30/19 12:16 Freq: Status: Active Protocol: Document 09/23/19 08:16 MB (Rec: 09/23/19 09:00 MB [id number]) Therapeutic Exercises Supine Exercises Pelvic realignment exercises to asst with postural changes, neck movement Comments Performed today for alignment Manual Therapy Treatment Manual Techniques KT to promote scapular retraction Comments I strip right upper traps for inhibition STM B SCM this date Comments MWM B SCM and right posterior scalene with pt performing active cervical rotation and PT providing trigger point pressure. Suboccipital release PT-OP-T Assessment and Plan Start: 07/30/19 12:16 Freq: Status: Active Protocol: Document 09/23/19 08:16 MB (Rec: 09/23/19 09:00 MB [id number]) Physical Therapy Assessment Rehab Potential Rehabilitation Potential Fair Evaluation Complexity Number of Personal Factors/Comorbidities 3 or More Number of Body Systems Impaired 4 or More Clinical Presentation at Evaluation Unstable Impairments Impairments Activity Tolerance,Balance, Coordination,Pain,Posture,ROM, Strength,Vestibular Other Impairments Decreased affect, inability to perform full work duties, occ difficulty driving d/t symptoms, taking multiple medications. Body systems include musculoskeletal, vestibular, psychosocial, neurological s/p nerve ablation. Her clinical picture is evolving to unstable. Goals Imbalance [facility] Goal (LTG) Pt will perform Romberg with eyes closed and socks only for at least 30 sec to decrease fall risk by 11/11/2019. 09/12/2019: LOB posteriorly 2 sec and requires asst to prevent fall LTG Duration 8 weeks 6 [employer] Goal (LTG) Pt will present with right shoulder flexion and abduction and right wrist supination, pronation and extension strength to 5/5 by 09/29/2019. 09/12/2019: Pt presents with 5/5 above MMT. LTG Duration 8 weeks 5 [employer] Goal (LTG) Pt will perform progressive HEP including postural, VOR, intrascapular, core and shoulder strengthening, breathing and relaxation and balance exercises to return to prior active LOF by 11/11/2019. 09/12/2019: Pt has been performing HEP as able d/t work constraints LTG Duration 8 weeks 4 [employer] Goal (LTG) Pt will report a 50% improvement in dizziness sxs to decrease fall risk by 2019. 09/12/2019: Pt reports an 8% improvement in dizziness since starting PT. She is at work longer and is off one med completely and is weaning off Bupropion. LTG Duration 8 weeks 3 [employer] Goal (LTG) Pt will report a 50% improvement in neck pain to improve cervical ROM with VOR exercises by 11/11/2019. 09/12/2019: Pt reports a 5% improvement in neck pain since starting PT. She thinks the VOR exercise side to side is helpful. The vertical nods are still troublesome. LTG Duration 8 weeks 2 [employer] Goal (LTG) Pt will perform WNLs on Functional Gait Index to decrease fall risk by 11/11/2019 . 09/12/2019:FGA 24/30 LTG Duration 8 weeks 1 Impairment DHI reflects moderate perception of handicap [employer] Goal (LTG) Pt will present with an improved DHI score to reflect no more than mild perception of handicap by 11/11/2019. 09/12/2019: DHI score reflects 42%, moderate perception of handicap LTG Duration 8 weeks Assessment Summary Assessment Pt cannot tolerate balance work today d/t she is not feeling She has not been performing some of her exercises and so reviewed some exercises today and created more handouts. Consider thoracic mobility, pect stretch. Con't balance exercises and manual work as needed. Consider Counterstrain next PT treatment. Physical Therapy Plan Frequency and Duration Frequency of Treatment 2x/Week Duration of Treatment 8 weeks Plan of Care Start Date 09/12/19 Plan of Care End Date 11/11/19 Therapeutic Interventions Therapeutic Interventions Balance Training,Canalithic Repositioning,Coordination Training,Home Exercise Program ,Manual Therapy,Neuromuscular Re-education,Patient/Caregiver Education,Self-Care/Home Management,Sensory Integration ,Soft Tissue Mobilization, Taping,Therapeutic Exercises, Vestibular Rehabilitation Next Visit Focus/Plan Next Note Type Treatment Note Next Visit Plan Progress ongoing balance, relaxation exercises and deep neck flexor strengthening. Consider progressive plank, thoracic mobility
--- NOTE | 2019-09-25 08:51 | PT.OTN ---
Current Diagnoses Sprain of ligaments of cervical spine, initial encounter (09/25/19) Physical Therapy Treatment Note PT-OP-A Visit Information Start: 07/30/19 12:16 Freq: Status: Active Protocol: Document 09/25/19 08:09 MB (Rec: 09/25/19 08:51 MB [id number]) Out-Patient Physical Therapy Visit Information Visit Information Visit Type Treatment Note Visit Note New auth 12 visits Visit Start Time 08:09 Visit Stop Time 08:49 Total Visit Minutes 40 Visit Number 11/19 PT-OP-B Current Condition Start: 07/30/19 12:16 Freq: Status: Active Protocol: Document 07/30/19 12:20 MB (Rec: 07/30/19 13:05 MB [id number]) Current Condition History of Current Condition Onset Date 05/01/2018 History of Current Condition Pt went to DO for work-up for migraines. She had high velocity manipulation to her cervical spine and then started having severe neck pain on 05/11/18. She went to the ED and had a pain injection and Oxycontin. She started having vertigo. She did not drive much for 2 months. 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 She has been doing rehab for her neck strength. In May 2018, she started have right hand paresthesia and weakness. She ended up having ulnar nerve transposition 11/26. She then went to OT and got her strength back. She had ablation of C3-7 nerve roots to help with pain relief and increase neck ROM. Her headaches are not better. Her neck ROM is better. She now knows that neck is causing migraines. She is seeing a pain specialist and he performed the ablation 06/02/19. He suggested pt see vestibular PT . Her migraine symptoms are: pressure occiput and wrap up over her head and pull on her brain. She feels her teeth quite often. Her Lyrica was doubled. She has constant SIFUENTES. Pt has nightmares about cracking of joints with relation to her injury. Sleeping is fitful. Bending over makes her the most dizzy. She states that she feels the dizziness when she goes to get back up. She feels like her head gets overpressured. Changing positions can get her. Leaning too far forward is troublesome. She feels like she needs to push herself into something to get tactile sensation. She feels like she needs to get a hold of herself. Pt reports pain rated 2-4 in her right arm and 4-7 in her neck. Jarring in car hurts her . She does report light- headedness. Her eyes feel tired. She had some floaters in the past. She denies hearing changes, tinnitus and dizziness rolling in the bed. She has sinus issues. She reports jaw tightness. She takes a B12 supplement and she had a deficiency. Pt reports she has trust issues with providers after the DO manipulation. She has occ numbness and tingling in right arm. She has shoulder lock-ups. Prior Treatments and Tests OT, PT MRI head and pt reports negative MRI/MRA head and neck with and without contrast Treatment Goals Patient/Caregiver Goals To get better, get back to work PT-OP-C Subjective Start: 07/30/19 12:16 Freq: Status: Active Protocol: Document 09/25/19 08:09 MB (Rec: 09/25/19 08:51 MB [id number]) OP-PT Subjective Patient Comments Patient Comments Pt states that her back is about the same. She tried the pelvic realignment exercises and the last one is difficult. PT-OP-K Range of Motion Start: 07/30/19 12:16 Freq: Status: Active Protocol: Document 07/30/19 12:20 MB (Rec: 07/30/19 16:27 MB [id number]) Cervical Spine Range of Motion Cervical Spine Active Flexion 30 Extension 15 Rotation Left 40 Rotation Right 45 Comments Pt reports 5-6/10 pain with cervical extensio. She presents with left SB posture at rest that increases with left cervical rotation PT-OP-M Strength Start: 07/30/19 12:16 Freq: Status: Active Protocol: Document 07/30/19 12:20 MB (Rec: 07/30/19 16:27 MB [id number]) Shoulder Strength Shoulder Manual Muscle Testing Left Flexion 5 Normal Abduction (C5) 5 Normal Right Flexion 4 Good Abduction (C5) 4 Good Elbow/Forearm Strength Elbow and Forearm Manual Muscle Testing Left Flexion (C6) 5 Normal Extension (C7) 5 Normal Pronation 5 Normal Supination 5 Normal Right Flexion (C6) 5 Normal Extension (C7) 5 Normal Pronation 4 Good Supination 4 Good Wrist Strength Wrist Manual Muscle Testing Left Flexion (C7) 5 Normal Extension (C6) 5 Normal Right Flexion (C7) 5 Normal Extension (C6) 4 Good PT-OP-O Vestibular Start: 07/30/19 16:27 Freq: Status: Active Protocol: Document 07/30/19 12:20 MB (Rec: 07/30/19 16:29 MB [id number]) Vestibular Assessment Visual Testing Smooth Pursuits Horizontal Normal Smooth Pursuits Vertical Normal Saccades Horizontal Normal Gaze Evoked Nystagmus With Fixation Negative Convergence Test Impaired Spontaneous Nystagmus Negative Comments Vestibular Comments Pt denies tinnitus and hearing changes. She does state that she has sinus issues and teeth pain, mostly upper teeth. She states she clenches her jaw. PT-OP-Q Treatments Start: 07/30/19 12:16 Freq: Status: Active Protocol: Document 09/25/19 08:09 MB (Rec: 09/25/19 08:51 MB [id number]) Neuro Re-Education Treatment Balance Activities Step-to fencing 2 steps forward and 2 steps back with pool noodles Comments PT stationary and pt moving towards PT and then stepping back, 5 reps and 2 sets Basket ball chest passes with PT walking forward and back changing distance Comments 3 sets of 5 passes and pt reports 5/10 dizziness, more trouble with PT moving forward and passing close Basket ball passes standing on blue foam Comments 3 sets of 10 passes, therapist moving. 3-4/10 dizziness with tasks Stacking cones from floor to above counter and back, R and l Comments Two sets of 6 cones, 3-4/10 dizziness after task Romberg with EO and EC Comments Pt cued to open eyes before LOB backwards against column. She has LOB within 1 sec of eyes closed and requires cues to open eyes PT-OP-T Assessment and Plan Start: 07/30/19 12:16 Freq: Status: Active Protocol: Document 09/25/19 08:09 MB (Rec: 09/25/19 08:51 MB [id number]) Physical Therapy Assessment Rehab Potential Rehabilitation Potential Fair Evaluation Complexity Number of Personal Factors/Comorbidities 3 or More Number of Body Systems Impaired 4 or More Clinical Presentation at Evaluation Unstable Impairments Impairments Activity Tolerance,Balance, Coordination,Pain,Posture,ROM, Strength,Vestibular Other Impairments Decreased affect, inability to perform full work duties, occ difficulty driving d/t symptoms, taking multiple medications. Body systems include musculoskeletal, vestibular, psychosocial, neurological s/p nerve ablation. Her clinical picture is evolving to unstable. Goals Imbalance Health Plan Manager Goal (LTG) Pt will perform Romberg with eyes closed and socks only for at least 30 sec to decrease fall risk by 11/11/2019. 09/12/2019: LOB posteriorly 2 sec and requires asst to prevent fall LTG Duration 8 weeks 6 Snf Goal (LTG) Pt will present with right shoulder flexion and abduction and right wrist supination, pronation and extension strength to 5/5 by 09/29/2019. 09/12/2019: Pt presents with 5/5 above MMT. LTG Duration 8 weeks 5 Health Plan Manager Goal (LTG) Pt will perform progressive HEP including postural, VOR, intrascapular, core and shoulder strengthening, breathing and relaxation and balance exercises to return to prior active LOF by 11/11/2019. 09/12/2019: Pt has been performing HEP as able d/t work constraints LTG Duration 8 weeks 4 Health Plan Manager Goal (LTG) Pt will report a 50% improvement in dizziness sxs to decrease fall risk by 2019. 09/12/2019: Pt reports an 8% improvement in dizziness since starting PT. She is at work longer and is off one med completely and is weaning off Bupropion. LTG Duration 8 weeks 3 Snf Goal (LTG) Pt will report a 50% improvement in neck pain to improve cervical ROM with VOR exercises by 11/11/2019. 09/12/2019: Pt reports a 5% improvement in neck pain since starting PT. She thinks the VOR exercise side to side is helpful. The vertical nods are still troublesome. LTG Duration 8 weeks 2 Snf Goal (LTG) Pt will perform WNLs on Functional Gait Index to decrease fall risk by 11/11/2019 . 09/12/2019:FGA 24/30 LTG Duration 8 weeks 1 Impairment DHI reflects moderate perception of handicap Snf Goal (LTG) Pt will present with an improved DHI score to reflect no more than mild perception of handicap by 11/11/2019. 09/12/2019: DHI score reflects 42%, moderate perception of handicap LTG Duration 8 weeks Assessment Summary Assessment Pt has trouble with all neuromuscular re-ed exercises today, especially with eyes closed and visual noise of PT moving. KT on right upper traps made her feel imbalanced . Con't vestibular and other exercises. Physical Therapy Plan Frequency and Duration Frequency of Treatment 2x/Week Duration of Treatment 8 weeks Plan of Care Start Date 09/12/19 Plan of Care End Date 11/11/19 Therapeutic Interventions Therapeutic Interventions Balance Training,Canalithic Repositioning,Coordination Training,Home Exercise Program ,Manual Therapy,Neuromuscular Re-education,Patient/Caregiver Education,Self-Care/Home Management,Sensory Integration ,Soft Tissue Mobilization, Taping,Therapeutic Exercises, Vestibular Rehabilitation Next Visit Focus/Plan Next Note Type Treatment Note Next Visit Plan Progress ongoing balance, relaxation exercises and deep neck flexor strengthening. Consider progressive plank, thoracic mobility
--- NOTE | 2019-09-30 08:59 | PT.OTN ---
Current Diagnoses Sprain of ligaments of cervical spine, initial encounter (09/30/19) Physical Therapy Treatment Note PT-OP-A Visit Information Start: 07/30/19 12:16 Freq: Status: Active Protocol: Document 09/30/19 08:18 MB (Rec: 09/30/19 08:58 MB [id number]) Out-Patient Physical Therapy Visit Information Visit Information Visit Type Treatment Note Visit Note New auth 12 visits Visit Start Time 08:18 Visit Stop Time 08:58 Total Visit Minutes 40 Visit Number 12/20 PT-OP-B Current Condition Start: 07/30/19 12:16 Freq: Status: Active Protocol: Document 07/30/19 12:20 MB (Rec: 07/30/19 13:05 MB [id number]) Current Condition History of Current Condition Onset Date 05/01/2018 History of Current Condition Pt went to DO for work-up for migraines. She had high velocity manipulation to her cervical spine and then started having severe neck pain on 05/11/18. She went to the ED and had a pain injection and Oxycontin. She started having vertigo. She did not drive much for 2 months. 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 She has been doing rehab for her neck strength. In May 2018, she started have right hand paresthesia and weakness. She ended up having ulnar nerve transposition 11/26. She then went to OT and got her strength back. She had ablation of C3-7 nerve roots to help with pain relief and increase neck ROM. Her headaches are not better. Her neck ROM is better. She now knows that neck is causing migraines. She is seeing a pain specialist and he performed the ablation 06/02/19. He suggested pt see vestibular PT . Her migraine symptoms are: pressure occiput and wrap up over her head and pull on her brain. She feels her teeth quite often. Her Lyrica was doubled. She has constant SIFUENTES. Pt has nightmares about cracking of joints with relation to her injury. Sleeping is fitful. Bending over makes her the most dizzy. She states that she feels the dizziness when she goes to get back up. She feels like her head gets overpressured. Changing positions can get her. Leaning too far forward is troublesome. She feels like she needs to push herself into something to get tactile sensation. She feels like she needs to get a hold of herself. Pt reports pain rated 2-4 in her right arm and 4-7 in her neck. Jarring in car hurts her . She does report light- headedness. Her eyes feel tired. She had some floaters in the past. She denies hearing changes, tinnitus and dizziness rolling in the bed. She has sinus issues. She reports jaw tightness. She takes a B12 supplement and she had a deficiency. Pt reports she has trust issues with providers after the DO manipulation. She has occ numbness and tingling in right arm. She has shoulder lock-ups. Prior Treatments and Tests OT, PT MRI head and pt reports negative MRI/MRA head and neck with and without contrast Treatment Goals Patient/Caregiver Goals To get better, get back to work PT-OP-C Subjective Start: 07/30/19 12:16 Freq: Status: Active Protocol: Document 09/30/19 08:18 MB (Rec: 09/30/19 08:59 MB [id number]) OP-PT Subjective Patient Comments Patient Comments Pt had to wait 15 minutes before driving after last treatment. PT-OP-K Range of Motion Start: 07/30/19 12:16 Freq: Status: Active Protocol: Document 07/30/19 12:20 MB (Rec: 07/30/19 16:27 MB [id number]) Cervical Spine Range of Motion Cervical Spine Active Flexion 30 Extension 15 Rotation Left 40 Rotation Right 45 Comments Pt reports 5-6/10 pain with cervical extensio. She presents with left SB posture at rest that increases with left cervical rotation PT-OP-M Strength Start: 07/30/19 12:16 Freq: Status: Active Protocol: Document 07/30/19 12:20 MB (Rec: 07/30/19 16:27 MB [id number]) Shoulder Strength Shoulder Manual Muscle Testing Left Flexion 5 Normal Abduction (C5) 5 Normal Right Flexion 4 Good Abduction (C5) 4 Good Elbow/Forearm Strength Elbow and Forearm Manual Muscle Testing Left Flexion (C6) 5 Normal Extension (C7) 5 Normal Pronation 5 Normal Supination 5 Normal Right Flexion (C6) 5 Normal Extension (C7) 5 Normal Pronation 4 Good Supination 4 Good Wrist Strength Wrist Manual Muscle Testing Left Flexion (C7) 5 Normal Extension (C6) 5 Normal Right Flexion (C7) 5 Normal Extension (C6) 4 Good PT-OP-O Vestibular Start: 07/30/19 16:27 Freq: Status: Active Protocol: Document 07/30/19 12:20 MB (Rec: 07/30/19 16:29 MB [id number]) Vestibular Assessment Visual Testing Smooth Pursuits Horizontal Normal Smooth Pursuits Vertical Normal Saccades Horizontal Normal Gaze Evoked Nystagmus With Fixation Negative Convergence Test Impaired Spontaneous Nystagmus Negative Comments Vestibular Comments Pt denies tinnitus and hearing changes. She does state that she has sinus issues and teeth pain, mostly upper teeth. She states she clenches her jaw. PT-OP-Q Treatments Start: 07/30/19 12:16 Freq: Status: Active Protocol: Document 09/30/19 08:18 MB (Rec: 09/30/19 08:58 MB [id number]) Neuro Re-Education Treatment Balance Activities Backwards walking over hurdles, alternating looking down and back right and lef Comments Performed today x2 reps, slowly and pt reports a little trouble with neck discomfort Walking over low hurdles onto unstable foam Comments 4 sets and pt with some balance trouble, moves slowly Forward and backward weight shifting in standing, heels together Comments 2 sets of 5 reps and pt has posterior LOB Marching off and on foam Comments For HEP, marching on floor. Pt presents with increased shoulder dipping B (lateral sway). On foam in gym: increased lateral sway with feet weight shifting 2 reps Basket ball chest passes with PT walking forward and back changing distance Comments Pt on blue foam. 3 sets of 5 passes and pt reports 5/10 dizziness, more trouble with PT moving forward and passing close Basket ball passes standing on blue foam Comments Pt performing rotations with upper body and head right and left holding ball once catching, 3 reps x3. Pt reports 7/10 dizziness Romberg with EO and EC Comments Pt cued to open eyes before LOB backwards against column. She has LOB within 1 sec of eyes closed and requires cues to open eyes PT-OP-T Assessment and Plan Start: 07/30/19 12:16 Freq: Status: Active Protocol: Document 09/30/19 08:18 MB (Rec: 09/30/19 08:58 MB [id number]) Physical Therapy Assessment Rehab Potential Rehabilitation Potential Fair Evaluation Complexity Number of Personal Factors/Comorbidities 3 or More Number of Body Systems Impaired 4 or More Clinical Presentation at Evaluation Unstable Impairments Impairments Activity Tolerance,Balance, Coordination,Pain,Posture,ROM, Strength,Vestibular Other Impairments Decreased affect, inability to perform full work duties, occ difficulty driving d/t symptoms, taking multiple medications. Body systems include musculoskeletal, vestibular, psychosocial, neurological s/p nerve ablation. Her clinical picture is evolving to unstable. Goals Imbalance [employer] End Goal (LTG) Pt will perform Romberg with eyes closed and socks only for at least 30 sec to decrease fall risk by 11/11/2019. 09/12/2019: LOB posteriorly 2 sec and requires asst to prevent fall LTG Duration 8 weeks 6 Group Home Goal (LTG) Pt will present with right shoulder flexion and abduction and right wrist supination, pronation and extension strength to 5/5 by 09/29/2019. 09/12/2019: Pt presents with 5/5 above MMT. LTG Duration 8 weeks 5 Group Home Goal (LTG) Pt will perform progressive HEP including postural, VOR, intrascapular, core and shoulder strengthening, breathing and relaxation and balance exercises to return to prior active LOF by 11/11/2019. 09/12/2019: Pt has been performing HEP as able d/t work constraints LTG Duration 8 weeks 4 Group Home Goal (LTG) Pt will report a 50% improvement in dizziness sxs to decrease fall risk by 2019. 09/12/2019: Pt reports an 8% improvement in dizziness since starting PT. She is at work longer and is off one med completely and is weaning off Bupropion. LTG Duration 8 weeks 3 Group Home Goal (LTG) Pt will report a 50% improvement in neck pain to improve cervical ROM with VOR exercises by 11/11/2019. 09/12/2019: Pt reports a 5% improvement in neck pain since starting PT. She thinks the VOR exercise side to side is helpful. The vertical nods are still troublesome. LTG Duration 8 weeks 2 Group Home Goal (LTG) Pt will perform WNLs on Functional Gait Index to decrease fall risk by 11/11/2019 . 09/12/2019:FGA 24/30 LTG Duration 8 weeks 1 Impairment DHI reflects moderate perception of handicap Group Home Goal (LTG) Pt will present with an improved DHI score to reflect no more than mild perception of handicap by 11/11/2019. 09/12/2019: DHI score reflects 42%, moderate perception of handicap LTG Duration 8 weeks Assessment Summary Assessment Continued with balance exercises today and added trunk and head turning. She reports that she needs occ tactile assist to get her point of reference. Consider adding stable visual cue as exercises progressed. Physical Therapy Plan Frequency and Duration Frequency of Treatment 2x/Week Duration of Treatment 8 weeks Plan of Care Start Date 09/12/19 Plan of Care End Date 11/11/19 Therapeutic Interventions Therapeutic Interventions Balance Training,Canalithic Repositioning,Coordination Training,Home Exercise Program ,Manual Therapy,Neuromuscular Re-education,Patient/Caregiver Education,Self-Care/Home Management,Sensory Integration ,Soft Tissue Mobilization, Taping,Therapeutic Exercises, Vestibular Rehabilitation Next Visit Focus/Plan Next Note Type Treatment Note Next Visit Plan Progress ongoing balance, vestibular, relaxation exercises and deep neck flexor strengthening. Consider progressive plank, thoracic mobility
--- NOTE | 2019-10-02 09:10 | PT.OTN ---
Current Diagnoses Sprain of ligaments of cervical spine, initial encounter (10/02/19) Physical Therapy Treatment Note PT-OP-A Visit Information Start: 07/30/19 12:16 Freq: Status: Active Protocol: Document 10/02/19 08:16 MB (Rec: 10/02/19 09:10 MB [id number]) Out-Patient Physical Therapy Visit Information Visit Information Visit Type Treatment Note Visit Note New auth 12 visits Visit Start Time 08:16 Visit Stop Time 09:09 Total Visit Minutes 53 Visit Number 01/19 PT-OP-B Current Condition Start: 07/30/19 12:16 Freq: Status: Active Protocol: Document 07/30/19 12:20 MB (Rec: 07/30/19 13:05 MB [id number]) Current Condition History of Current Condition Onset Date 05/01/2018 History of Current Condition Pt went to DO for work-up for migraines. She had high velocity manipulation to her cervical spine and then started having severe neck pain on 05/11/18. She went to the ED and had a pain injection and Oxycontin. She started having vertigo. She did not drive much for 2 months. 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 She has been doing rehab for her neck strength. In May 2018, she started have right hand paresthesia and weakness. She ended up having ulnar nerve transposition 11/26. She then went to OT and got her strength back. She had ablation of C3-7 nerve roots to help with pain relief and increase neck ROM. Her headaches are not better. Her neck ROM is better. She now knows that neck is causing migraines. She is seeing a pain specialist and he performed the ablation 06/02/19. He suggested pt see vestibular PT . Her migraine symptoms are: pressure occiput and wrap up over her head and pull on her brain. She feels her teeth quite often. Her Lyrica was doubled. She has constant SIFUENTES. Pt has nightmares about cracking of joints with relation to her injury. Sleeping is fitful. Bending over makes her the most dizzy. She states that she feels the dizziness when she goes to get back up. She feels like her head gets overpressured. Changing positions can get her. Leaning too far forward is troublesome. She feels like she needs to push herself into something to get tactile sensation. She feels like she needs to get a hold of herself. Pt reports pain rated 2-4 in her right arm and 4-7 in her neck. Jarring in car hurts her . She does report light- headedness. Her eyes feel tired. She had some floaters in the past. She denies hearing changes, tinnitus and dizziness rolling in the bed. She has sinus issues. She reports jaw tightness. She takes a B12 supplement and she had a deficiency. Pt reports she has trust issues with providers after the DO manipulation. She has occ numbness and tingling in right arm. She has shoulder lock-ups. Prior Treatments and Tests OT, PT MRI head and pt reports negative MRI/MRA head and neck with and without contrast Treatment Goals Patient/Caregiver Goals To get better, get back to work PT-OP-C Subjective Start: 07/30/19 12:16 Freq: Status: Active Protocol: Document 10/02/19 08:16 MB (Rec: 10/02/19 09:10 MB [id number]) OP-PT Subjective Patient Comments Patient Comments Pt states that she had a bad day yesterday. She was a little off all day after vestibular treatment on Sunday. She was consistent with taking medications at work and now has a pill box. She has not been drinking non- caffeinated fluids consistently. She has been exercising three mornings this week and was only able to do 20 minutes on the bike today. PT-OP-K Range of Motion Start: 07/30/19 12:16 Freq: Status: Active Protocol: Document 07/30/19 12:20 MB (Rec: 07/30/19 16:27 MB [id number]) Cervical Spine Range of Motion Cervical Spine Active Flexion 30 Extension 15 Rotation Left 40 Rotation Right 45 Comments Pt reports 5-6/10 pain with cervical extensio. She presents with left SB posture at rest that increases with left cervical rotation PT-OP-M Strength Start: 07/30/19 12:16 Freq: Status: Active Protocol: Document 07/30/19 12:20 MB (Rec: 07/30/19 16:27 MB [id number]) Shoulder Strength Shoulder Manual Muscle Testing Left Flexion 5 Normal Abduction (C5) 5 Normal Right Flexion 4 Good Abduction (C5) 4 Good Elbow/Forearm Strength Elbow and Forearm Manual Muscle Testing Left Flexion (C6) 5 Normal Extension (C7) 5 Normal Pronation 5 Normal Supination 5 Normal Right Flexion (C6) 5 Normal Extension (C7) 5 Normal Pronation 4 Good Supination 4 Good Wrist Strength Wrist Manual Muscle Testing Left Flexion (C7) 5 Normal Extension (C6) 5 Normal Right Flexion (C7) 5 Normal Extension (C6) 4 Good PT-OP-O Vestibular Start: 07/30/19 16:27 Freq: Status: Active Protocol: Document 07/30/19 12:20 MB (Rec: 07/30/19 16:29 MB [id number]) Vestibular Assessment Visual Testing Smooth Pursuits Horizontal Normal Smooth Pursuits Vertical Normal Saccades Horizontal Normal Gaze Evoked Nystagmus With Fixation Negative Convergence Test Impaired Spontaneous Nystagmus Negative Comments Vestibular Comments Pt denies tinnitus and hearing changes. She does state that she has sinus issues and teeth pain, mostly upper teeth. She states she clenches her jaw. PT-OP-Q Treatments Start: 07/30/19 12:16 Freq: Status: Active Protocol: Document 10/02/19 08:16 MB (Rec: 10/02/19 09:10 MB [id number]) Manual Therapy Treatment Manual Techniques First rib isometric mob Comments Performed this date on the left in order to improve left shoulder mobility and flexion and improved movement after performing Suboccipital release Comments Performed this date after Counterstrain to decrease suboccipital tension Counterstrain Comments Pt agrees to Counterstrain to assess and treat fascial tension and PT treats stacks B : right ALL, ligamentum flavum , facial nerve, right posterior UE somatic, proximal PT-OP-T Assessment and Plan Start: 07/30/19 12:16 Freq: Status: Active Protocol: Document 10/02/19 08:16 MB (Rec: 10/02/19 09:10 MB [id number]) Physical Therapy Assessment Rehab Potential Rehabilitation Potential Fair Evaluation Complexity Number of Personal Factors/Comorbidities 3 or More Number of Body Systems Impaired 4 or More Clinical Presentation at Evaluation Unstable Impairments Impairments Activity Tolerance,Balance, Coordination,Pain,Posture,ROM, Strength,Vestibular Other Impairments Decreased affect, inability to perform full work duties, occ difficulty driving d/t symptoms, taking multiple medications. Body systems include musculoskeletal, vestibular, psychosocial, neurological s/p nerve ablation. Her clinical picture is evolving to unstable. Goals Imbalance Usp Goal (LTG) Pt will perform Romberg with eyes closed and socks only for at least 30 sec to decrease fall risk by 11/11/2019. 09/12/2019: LOB posteriorly 2 sec and requires asst to prevent fall LTG Duration 8 weeks 6 Usp Goal (LTG) Pt will present with right shoulder flexion and abduction and right wrist supination, pronation and extension strength to 5/5 by 09/29/2019. 09/12/2019: Pt presents with 5/5 above MMT. LTG Duration 8 weeks 5 Usp Goal (LTG) Pt will perform progressive HEP including postural, VOR, intrascapular, core and shoulder strengthening, breathing and relaxation and balance exercises to return to prior active LOF by 11/11/2019. 09/12/2019: Pt has been performing HEP as able d/t work constraints LTG Duration 8 weeks 4 Usp Goal (LTG) Pt will report a 50% improvement in dizziness sxs to decrease fall risk by 2019. 09/12/2019: Pt reports an 8% improvement in dizziness since starting PT. She is at work longer and is off one med completely and is weaning off Bupropion. 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 09/12/2019: Pt reports a 5% improvement in neck pain since starting PT. She thinks the VOR exercise side to side is helpful. The vertical nods are still troublesome. LTG Duration 8 weeks 2 Usp Goal (LTG) Pt will perform WNLs on Functional Gait Index to decrease fall risk by 11/11/2019 . 09/12/2019:FGA 24/ LTG Duration 8 weeks 1 Impairment DHI reflects moderate perception of handicap Usp Goal (LTG) Pt will present with an improved DHI score to reflect no more than mild perception of handicap by 11/11/2019. 09/12/2019: DHI score reflects 42%, moderate perception of handicap LTG Duration 8 weeks Assessment Summary Assessment Pt presents with increased musculoskeletal fascial tension at ligaments, worse in the cervical and thoracic spine today. Con't ongoing Counterstrain as well as progressive ongoing thoracic mobility, range, VOR and balance exercises. Physical Therapy Plan Frequency and Duration Frequency of Treatment 2x/Week Duration of Treatment 8 weeks Plan of Care Start Date 09/12/19 Plan of Care End Date 11/11/19 Therapeutic Interventions Therapeutic Interventions Balance Training,Canalithic Repositioning,Coordination Training,Home Exercise Program ,Manual Therapy,Neuromuscular Re-education,Patient/Caregiver Education,Self-Care/Home Management,Sensory Integration ,Soft Tissue Mobilization, Taping,Therapeutic Exercises, Vestibular Rehabilitation Next Visit Focus/Plan Next Note Type Treatment Note Next Visit Plan Progress ongoing balance, vestibular, relaxation exercises and deep neck flexor strengthening. Consider progressive plank, thoracic mobility
--- NOTE | 2019-10-07 08:59 | PT.OTN ---
Current Diagnoses Sprain of ligaments of cervical spine, initial encounter (10/07/19) Physical Therapy Treatment Note PT-OP-A Visit Information Start: 07/30/19 12:16 Freq: Status: Active Protocol: Document 10/07/19 08:19 MB (Rec: 10/07/19 08:59 MB [id number]) Out-Patient Physical Therapy Visit Information Visit Information Visit Type Treatment Note Visit Note New auth 12 visits Visit Start Time 08:19 Visit Stop Time 08:59 Total Visit Minutes 40 Visit Number 02/19 PT-OP-B Current Condition Start: 07/30/19 12:16 Freq: Status: Active Protocol: Document 07/30/19 12:20 MB (Rec: 07/30/19 13:05 MB [id number]) Current Condition History of Current Condition Onset Date 05/01/2018 History of Current Condition Pt went to DO for work-up for migraines. She had high velocity manipulation to her cervical spine and then started having severe neck pain on 05/11/18. She went to the ED and had a pain injection and Oxycontin. She started having vertigo. She did not drive much for 2 months. 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 She has been doing rehab for her neck strength. In May 2018, she started have right hand paresthesia and weakness. She ended up having ulnar nerve transposition 11/26. She then went to OT and got her strength back. She had ablation of C3-7 nerve roots to help with pain relief and increase neck ROM. Her headaches are not better. Her neck ROM is better. She now knows that neck is causing migraines. She is seeing a pain specialist and he performed the ablation 06/02/19. He suggested pt see vestibular PT . Her migraine symptoms are: pressure occiput and wrap up over her head and pull on her brain. She feels her teeth quite often. Her Lyrica was doubled. She has constant SIFUENTES. Pt has nightmares about cracking of joints with relation to her injury. Sleeping is fitful. Bending over makes her the most dizzy. She states that she feels the dizziness when she goes to get back up. She feels like her head gets overpressured. Changing positions can get her. Leaning too far forward is troublesome. She feels like she needs to push herself into something to get tactile sensation. She feels like she needs to get a hold of herself. Pt reports pain rated 2-4 in her right arm and 4-7 in her neck. Jarring in car hurts her . She does report light- headedness. Her eyes feel tired. She had some floaters in the past. She denies hearing changes, tinnitus and dizziness rolling in the bed. She has sinus issues. She reports jaw tightness. She takes a B12 supplement and she had a deficiency. Pt reports she has trust issues with providers after the DO manipulation. She has occ numbness and tingling in right arm. She has shoulder lock-ups. Prior Treatments and Tests OT, PT MRI head and pt reports negative MRI/MRA head and neck with and without contrast Treatment Goals Patient/Caregiver Goals To get better, get back to work PT-OP-C Subjective Start: 07/30/19 12:16 Freq: Status: Active Protocol: Document 10/07/19 08:19 MB (Rec: 10/07/19 08:59 MB [id number]) OP-PT Subjective Patient Comments Patient Comments Pt had a couple of bad pain days. Her neck was bothersome. She was able to do full work days and was very tired at the end of the day. PT-OP-K Range of Motion Start: 07/30/19 12:16 Freq: Status: Active Protocol: Document 07/30/19 12:20 MB (Rec: 07/30/19 16:27 MB [id number]) Cervical Spine Range of Motion Cervical Spine Active Flexion 30 Extension 15 Rotation Left 40 Rotation Right 45 Comments Pt reports 5-6/10 pain with cervical extensio. She presents with left SB posture at rest that increases with left cervical rotation PT-OP-M Strength Start: 07/30/19 12:16 Freq: Status: Active Protocol: Document 07/30/19 12:20 MB (Rec: 07/30/19 16:27 MB [id number]) Shoulder Strength Shoulder Manual Muscle Testing Left Flexion 5 Normal Abduction (C5) 5 Normal Right Flexion 4 Good Abduction (C5) 4 Good Elbow/Forearm Strength Elbow and Forearm Manual Muscle Testing Left Flexion (C6) 5 Normal Extension (C7) 5 Normal Pronation 5 Normal Supination 5 Normal Right Flexion (C6) 5 Normal Extension (C7) 5 Normal Pronation 4 Good Supination 4 Good Wrist Strength Wrist Manual Muscle Testing Left Flexion (C7) 5 Normal Extension (C6) 5 Normal Right Flexion (C7) 5 Normal Extension (C6) 4 Good PT-OP-O Vestibular Start: 07/30/19 16:27 Freq: Status: Active Protocol: Document 07/30/19 12:20 MB (Rec: 07/30/19 16:29 MB [id number]) Vestibular Assessment Visual Testing Smooth Pursuits Horizontal Normal Smooth Pursuits Vertical Normal Saccades Horizontal Normal Gaze Evoked Nystagmus With Fixation Negative Convergence Test Impaired Spontaneous Nystagmus Negative Comments Vestibular Comments Pt denies tinnitus and hearing changes. She does state that she has sinus issues and teeth pain, mostly upper teeth. She states she clenches her jaw. PT-OP-Q Treatments Start: 07/30/19 12:16 Freq: Status: Active Protocol: Document 10/07/19 08:19 MB (Rec: 10/07/19 08:59 MB [id number]) Neuro Re-Education Treatment Balance Activities Feet apart, forward and backward weight shifting Comments Pt has trouble with heels together and so initiated today with feet apart. Pt performs 3 reps without LOB. Second set, 2 reps. 6-7/10 symptoms. This was third of exercises Walking over low hurdles onto unstable foam Comments x3, sets forward and backward. 4/10 symptoms. Trouble with balance and more difficult going backwards Basket ball chest passes with PT walking forward and back changing distance Comments Pt tolerates 10 passes , chest passes and floor passess with PT moving forward and back and pt able to converse during treatment x3 sets, 5/10 symptoms. 2 sets of LOB posteriorly PT-OP-T Assessment and Plan Start: 07/30/19 12:16 Freq: Status: Active Protocol: Document 10/07/19 08:19 MB (Rec: 10/07/19 08:59 MB [id number]) Physical Therapy Assessment Rehab Potential Rehabilitation Potential Fair Evaluation Complexity Number of Personal Factors/Comorbidities 3 or More Number of Body Systems Impaired 4 or More Clinical Presentation at Evaluation Unstable Impairments Impairments Activity Tolerance,Balance, Coordination,Pain,Posture,ROM, Strength,Vestibular Other Impairments Decreased affect, inability to perform full work duties, occ difficulty driving d/t symptoms, taking multiple medications. Body systems include musculoskeletal, vestibular, psychosocial, neurological s/p nerve ablation. Her clinical picture is evolving to unstable. Goals Imbalance Analyzer Sales Goal (LTG) Pt will perform Romberg with eyes closed and socks only for at least 30 sec to decrease fall risk by 11/11/2019. 09/12/2019: LOB posteriorly 2 sec and requires asst to prevent fall LTG Duration 8 weeks 6 Analyzer Sales Goal (LTG) Pt will present with right shoulder flexion and abduction and right wrist supination, pronation and extension strength to 5/5 by 09/29/2019. 09/12/2019: Pt presents with 5/5 above MMT. LTG Duration 8 weeks 5 Analyzer Sales Goal (LTG) Pt will perform progressive HEP including postural, VOR, intrascapular, core and shoulder strengthening, breathing and relaxation and balance exercises to return to prior active LOF by 11/11/2019. 09/12/2019: Pt has been performing HEP as able d/t work constraints LTG Duration 8 weeks 4 Analyzer Sales Goal (LTG) Pt will report a 50% improvement in dizziness sxs to decrease fall risk by 2019. 09/12/2019: Pt reports an 8% improvement in dizziness since starting PT. She is at work longer and is off one med completely and is weaning off Bupropion. LTG Duration 8 weeks 3 Analyzer Sales Goal (LTG) Pt will report a 50% improvement in neck pain to improve cervical ROM with VOR exercises by 11/11/2019. 09/12/2019: Pt reports a 5% improvement in neck pain since starting PT. She thinks the VOR exercise side to side is helpful. The vertical nods are still troublesome. LTG Duration 8 weeks 2 Analyzer Sales Goal (LTG) Pt will perform WNLs on Functional Gait Index to decrease fall risk by 11/11/2019 . 09/12/2019:FGA 24/30 LTG Duration 8 weeks 1 Impairment DHI reflects moderate perception of handicap Analyzer Sales Goal (LTG) Pt will present with an improved DHI score to reflect no more than mild perception of handicap by 11/11/2019. 09/12/2019: DHI score reflects 42%, moderate perception of handicap LTG Duration 8 weeks Assessment Summary Assessment Pt performs more reps of balance exercises today and has similar symptoms. Gait in hallways with turning was more difficult after exercises. Physical Therapy Plan Frequency and Duration Frequency of Treatment 2x/Week Duration of Treatment 8 weeks Plan of Care Start Date 09/12/19 Plan of Care End Date 11/11/19 Therapeutic Interventions Therapeutic Interventions Balance Training,Canalithic Repositioning,Coordination Training,Home Exercise Program ,Manual Therapy,Neuromuscular Re-education,Patient/Caregiver Education,Self-Care/Home Management,Sensory Integration ,Soft Tissue Mobilization, Taping,Therapeutic Exercises, Vestibular Rehabilitation Next Visit Focus/Plan Next Note Type Treatment Note Next Visit Plan Progress ongoing balance, vestibular, relaxation exercises and deep neck flexor strengthening. Consider progressive plank, thoracic mobility
--- NOTE | 2019-10-10 13:45 | PT.OTN ---
Current Diagnoses Sprain of ligaments of cervical spine, initial encounter (10/10/19) Physical Therapy Treatment Note PT-OP-A Visit Information Start: 07/30/19 12:16 Freq: Status: Active Protocol: Document 10/10/19 13:02 MB (Rec: 10/10/19 13:44 MB [id number]) Out-Patient Physical Therapy Visit Information Visit Information Visit Type Treatment Note Visit Note New auth 12 visits Visit Start Time 13:05 Visit Stop Time 13:46 Total Visit Minutes 41 Visit Number 03/21 PT-OP-B Current Condition Start: 07/30/19 12:16 Freq: Status: Active Protocol: Document 07/30/19 12:20 MB (Rec: 07/30/19 13:05 MB [id number]) Current Condition History of Current Condition Onset Date 05/01/2018 History of Current Condition Pt went to DO for work-up for migraines. She had high velocity manipulation to her cervical spine and then started having severe neck pain on 05/11/18. She went to the ED and had a pain injection and Oxycontin. She started having vertigo. She did not drive much for 2 months. 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 She has been doing rehab for her neck strength. In May 2018, she started have right hand paresthesia and weakness. She ended up having ulnar nerve transposition 11/26. She then went to OT and got her strength back. She had ablation of C3-7 nerve roots to help with pain relief and increase neck ROM. Her headaches are not better. Her neck ROM is better. She now knows that neck is causing migraines. She is seeing a pain specialist and he performed the ablation 06/02/19. He suggested pt see vestibular PT . Her migraine symptoms are: pressure occiput and wrap up over her head and pull on her brain. She feels her teeth quite often. Her Lyrica was doubled. She has constant SIFUENTES. Pt has nightmares about cracking of joints with relation to her injury. Sleeping is fitful. Bending over makes her the most dizzy. She states that she feels the dizziness when she goes to get back up. She feels like her head gets overpressured. Changing positions can get her. Leaning too far forward is troublesome. She feels like she needs to push herself into something to get tactile sensation. She feels like she needs to get a hold of herself. Pt reports pain rated 2-4 in her right arm and 4-7 in her neck. Jarring in car hurts her . She does report light- headedness. Her eyes feel tired. She had some floaters in the past. She denies hearing changes, tinnitus and dizziness rolling in the bed. She has sinus issues. She reports jaw tightness. She takes a B12 supplement and she had a deficiency. Pt reports she has trust issues with providers after the DO manipulation. She has occ numbness and tingling in right arm. She has shoulder lock-ups. Prior Treatments and Tests OT, PT MRI head and pt reports negative MRI/MRA head and neck with and without contrast Treatment Goals Patient/Caregiver Goals To get better, get back to work PT-OP-C Subjective Start: 07/30/19 12:16 Freq: Status: Active Protocol: Document 10/10/19 13:02 MB (Rec: 10/10/19 13:44 MB [id number]) OP-PT Subjective Patient Comments Patient Comments Pt had a rough morning. She ran into the curb on the right and had to have her tire changed. Pt had a headache after last PT treatment. PT-OP-K Range of Motion Start: 07/30/19 12:16 Freq: Status: Active Protocol: Document 07/30/19 12:20 MB (Rec: 07/30/19 16:27 MB [id number]) Cervical Spine Range of Motion Cervical Spine Active Flexion 30 Extension 15 Rotation Left 40 Rotation Right 45 Comments Pt reports 5-6/10 pain with cervical extensio. She presents with left SB posture at rest that increases with left cervical rotation PT-OP-M Strength Start: 07/30/19 12:16 Freq: Status: Active Protocol: Document 07/30/19 12:20 MB (Rec: 07/30/19 16:27 MB [id number]) Shoulder Strength Shoulder Manual Muscle Testing Left Flexion 5 Normal Abduction (C5) 5 Normal Right Flexion 4 Good Abduction (C5) 4 Good Elbow/Forearm Strength Elbow and Forearm Manual Muscle Testing Left Flexion (C6) 5 Normal Extension (C7) 5 Normal Pronation 5 Normal Supination 5 Normal Right Flexion (C6) 5 Normal Extension (C7) 5 Normal Pronation 4 Good Supination 4 Good Wrist Strength Wrist Manual Muscle Testing Left Flexion (C7) 5 Normal Extension (C6) 5 Normal Right Flexion (C7) 5 Normal Extension (C6) 4 Good PT-OP-O Vestibular Start: 07/30/19 16:27 Freq: Status: Active Protocol: Document 07/30/19 12:20 MB (Rec: 07/30/19 16:29 MB [id number]) Vestibular Assessment Visual Testing Smooth Pursuits Horizontal Normal Smooth Pursuits Vertical Normal Saccades Horizontal Normal Gaze Evoked Nystagmus With Fixation Negative Convergence Test Impaired Spontaneous Nystagmus Negative Comments Vestibular Comments Pt denies tinnitus and hearing changes. She does state that she has sinus issues and teeth pain, mostly upper teeth. She states she clenches her jaw. PT-OP-Q Treatments Start: 07/30/19 12:16 Freq: Status: Active Protocol: Document 10/10/19 13:02 MB (Rec: 10/10/19 13:44 MB [id number]) Therapeutic Exercises Standing Exercises Appropriate gym machine work-outs Comments Row, shoulder ER PT demo, PT clears leg press15 Shoulder extension with triceps work Comments Level 1 band over door, 5 reps Manual Therapy Treatment Manual Techniques First rib isometric mob Comments Performed Left first rib today , pt with improved passive mobility after treatment Suboccipital release Comments Performed today after other manual work STM B SCM this date Comments MWM, PT providing pressure and pt performing active cervical rotation. Performed distal and proximal SCM, anterior scalene on the left PT-OP-T Assessment and Plan Start: 07/30/19 12:16 Freq: Status: Active Protocol: Document 10/10/19 13:02 MB (Rec: 10/10/19 13:44 MB [id number]) Physical Therapy Assessment Rehab Potential Rehabilitation Potential Fair Evaluation Complexity Number of Personal Factors/Comorbidities 3 or More Number of Body Systems Impaired 4 or More Clinical Presentation at Evaluation Unstable Impairments Impairments Activity Tolerance,Balance, Coordination,Pain,Posture,ROM, Strength,Vestibular Other Impairments Decreased affect, inability to perform full work duties, occ difficulty driving d/t symptoms, taking multiple medications. Body systems include musculoskeletal, vestibular, psychosocial, neurological s/p nerve ablation. Her clinical picture is evolving to unstable. Goals Imbalance [facility] Goal (LTG) Pt will perform Romberg with eyes closed and socks only for at least 30 sec to decrease fall risk by 11/11/2019. 09/12/2019: LOB posteriorly 2 sec and requires asst to prevent fall LTG Duration 8 weeks 6 [facility] Goal (LTG) Pt will present with right shoulder flexion and abduction and right wrist supination, pronation and extension strength to 5/5 by 09/29/2019. 09/12/2019: Pt presents with 5/5 above MMT. LTG Duration 8 weeks 5 [facility] Goal (LTG) Pt will perform progressive HEP including postural, VOR, intrascapular, core and shoulder strengthening, breathing and relaxation and balance exercises to return to prior active LOF by 11/11/2019. 09/12/2019: Pt has been performing HEP as able d/t work constraints LTG Duration 8 weeks 4 Maritime Engineer Goal (LTG) Pt will report a 50% improvement in dizziness sxs to decrease fall risk by 2019. 09/12/2019: Pt reports an 8% improvement in dizziness since starting PT. She is at work longer and is off one med completely and is weaning off Bupropion. LTG Duration 8 weeks 3 Maritime Engineer Goal (LTG) Pt will report a 50% improvement in neck pain to improve cervical ROM with VOR exercises by 11/11/2019. 09/12/2019: Pt reports a 5% improvement in neck pain since starting PT. She thinks the VOR exercise side to side is helpful. The vertical nods are still troublesome. LTG Duration 8 weeks 2 [facility] Goal (LTG) Pt will perform WNLs on Functional Gait Index to decrease fall risk by 11/11/2019 . 09/12/2019:FGA 24/30 LTG Duration 8 weeks 1 Impairment DHI reflects moderate perception of handicap [facility] Goal (LTG) Pt will present with an improved DHI score to reflect no more than mild perception of handicap by 11/11/2019. 09/12/2019: DHI score reflects 42%, moderate perception of handicap LTG Duration 8 weeks Assessment Summary Assessment Pt is going to the gym in the mornings and so ed on strengthening she can do for her intrascapular area and shoulder to help with cervical stability. She has increased tension in her neck, greatest in left distal SCM and scalenes. Con't PT for vestibular and balance exercises, manual work, relaxation and strengthening as appropriate. Physical Therapy Plan Frequency and Duration Frequency of Treatment 2x/Week Duration of Treatment 8 weeks Plan of Care Start Date 09/12/19 Plan of Care End Date 11/11/19 Therapeutic Interventions Therapeutic Interventions Balance Training,Canalithic Repositioning,Coordination Training,Home Exercise Program ,Manual Therapy,Neuromuscular Re-education,Patient/Caregiver Education,Self-Care/Home Management,Sensory Integration ,Soft Tissue Mobilization, Taping,Therapeutic Exercises, Vestibular Rehabilitation Next Visit Focus/Plan Next Note Type Treatment Note Next Visit Plan Progress ongoing balance, vestibular, relaxation exercises and deep neck flexor strengthening. Consider progressive plank, thoracic mobility
--- NOTE | 2019-10-13 08:49 | PT.OTN ---
Current Diagnoses Sprain of ligaments of cervical spine, initial encounter (10/13/19) Physical Therapy Treatment Note PT-OP-A Visit Information Start: 07/30/19 12:16 Freq: Status: Active Protocol: Document 10/13/19 08:13 MB (Rec: 10/13/19 08:48 MB [id number]) Out-Patient Physical Therapy Visit Information Visit Information Visit Type Treatment Note Visit Note New auth 12 visits Shortened treatment d/t sxs provoked and pt states she reaches her threshold Visit Start Time 08:13 Visit Stop Time 08:47 Total Visit Minutes 34 Visit Number 8 PT-OP-B Current Condition Start: 07/30/19 12:16 Freq: Status: Active Protocol: Document 07/30/19 12:20 MB (Rec: 07/30/19 13:05 MB [id number]) Current Condition History of Current Condition Onset Date 05/01/2018 History of Current Condition Pt went to DO for work-up for migraines. She had high velocity manipulation to her cervical spine and then started having severe neck pain on 05/11/18. She went to the ED and had a pain injection and Oxycontin. She started having vertigo. She did not drive much for 2 months. 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 She has been doing rehab for her neck strength. In May 2018, she started have right hand paresthesia and weakness. She ended up having ulnar nerve transposition 11/26. She then went to OT and got her strength back. She had ablation of C3-7 nerve roots to help with pain relief and increase neck ROM. Her headaches are not better. Her neck ROM is better. She now knows that neck is causing migraines. She is seeing a pain specialist and he performed the ablation 06/02/19. He suggested pt see vestibular PT . Her migraine symptoms are: pressure occiput and wrap up over her head and pull on her brain. She feels her teeth quite often. Her Lyrica was doubled. She has constant SIFUENTES. Pt has nightmares about cracking of joints with relation to her injury. Sleeping is fitful. Bending over makes her the most dizzy. She states that she feels the dizziness when she goes to get back up. She feels like her head gets overpressured. Changing positions can get her. Leaning too far forward is troublesome. She feels like she needs to push herself into something to get tactile sensation. She feels like she needs to get a hold of herself. Pt reports pain rated 2-4 in her right arm and 4-7 in her neck. Jarring in car hurts her . She does report light- headedness. Her eyes feel tired. She had some floaters in the past. She denies hearing changes, tinnitus and dizziness rolling in the bed. She has sinus issues. She reports jaw tightness. She takes a B12 supplement and she had a deficiency. Pt reports she has trust issues with providers after the DO manipulation. She has occ numbness and tingling in right arm. She has shoulder lock-ups. Prior Treatments and Tests OT, PT MRI head and pt reports negative MRI/MRA head and neck with and without contrast Treatment Goals Patient/Caregiver Goals To get better, get back to work PT-OP-C Subjective Start: 07/30/19 12:16 Freq: Status: Active Protocol: Document 10/13/19 08:13 MB (Rec: 10/13/19 08:48 MB [id number]) OP-PT Subjective Patient Comments Patient Comments Pt got to the gym and got it done. She feels she is getting a little better. PT-OP-K Range of Motion Start: 07/30/19 12:16 Freq: Status: Active Protocol: Document 07/30/19 12:20 MB (Rec: 07/30/19 16:27 MB [id number]) Cervical Spine Range of Motion Cervical Spine Active Flexion 30 Extension 15 Rotation Left 40 Rotation Right 45 Comments Pt reports 5-6/10 pain with cervical extensio. She presents with left SB posture at rest that increases with left cervical rotation PT-OP-M Strength Start: 07/30/19 12:16 Freq: Status: Active Protocol: Document 07/30/19 12:20 MB (Rec: 07/30/19 16:27 MB [id number]) Shoulder Strength Shoulder Manual Muscle Testing Left Flexion 5 Normal Abduction (C5) 5 Normal Right Flexion 4 Good Abduction (C5) 4 Good Elbow/Forearm Strength Elbow and Forearm Manual Muscle Testing Left Flexion (C6) 5 Normal Extension (C7) 5 Normal Pronation 5 Normal Supination 5 Normal Right Flexion (C6) 5 Normal Extension (C7) 5 Normal Pronation 4 Good Supination 4 Good Wrist Strength Wrist Manual Muscle Testing Left Flexion (C7) 5 Normal Extension (C6) 5 Normal Right Flexion (C7) 5 Normal Extension (C6) 4 Good PT-OP-O Vestibular Start: 07/30/19 16:27 Freq: Status: Active Protocol: Document 07/30/19 12:20 MB (Rec: 07/30/19 16:29 MB [id number]) Vestibular Assessment Visual Testing Smooth Pursuits Horizontal Normal Smooth Pursuits Vertical Normal Saccades Horizontal Normal Gaze Evoked Nystagmus With Fixation Negative Convergence Test Impaired Spontaneous Nystagmus Negative Comments Vestibular Comments Pt denies tinnitus and hearing changes. She does state that she has sinus issues and teeth pain, mostly upper teeth. She states she clenches her jaw. PT-OP-Q Treatments Start: 07/30/19 12:16 Freq: Status: Active Protocol: Document 10/13/19 08:13 MB (Rec: 10/13/19 08:48 MB [id number]) Neuro Re-Education Treatment Balance Activities Feet apart, forward and backward weight shifting Comments 6 weight shifts and pt has to perform step strategy backwards to prevent LOB, last rep LOB into wall; 6 reps and similar response; 6 reps and pt has more LOB Walking over low hurdles onto unstable foam Comments x3, sets forward and backward. Holds onto parallel bars with walking backwards. This is similar to previous treatment dates. She reports 4/10 dizziness. Basket ball chest passes with PT walking forward and back changing distance Comments Pt standing on blue foam. Pt performs 30 passes; 35 passes; 4 passes when PT advances close, LOB posteriorly, catches on wall. Last set, 30 passes befort LOB posteriorly PT-OP-T Assessment and Plan Start: 07/30/19 12:16 Freq: Status: Active Protocol: Document 10/13/19 08:13 MB (Rec: 10/13/19 08:48 MB [id number]) Physical Therapy Assessment Rehab Potential Rehabilitation Potential Fair Evaluation Complexity Number of Personal Factors/Comorbidities 3 or More Number of Body Systems Impaired 4 or More Clinical Presentation at Evaluation Unstable Impairments Impairments Activity Tolerance,Balance, Coordination,Pain,Posture,ROM, Strength,Vestibular Other Impairments Decreased affect, inability to perform full work duties, occ difficulty driving d/t symptoms, taking multiple medications. Body systems include musculoskeletal, vestibular, psychosocial, neurological s/p nerve ablation. Her clinical picture is evolving to unstable. Goals Imbalance Care Home Goal (LTG) Pt will perform Romberg with eyes closed and socks only for at least 30 sec to decrease fall risk by 11/11/2019. 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 09/12/2019: Pt presents with 5/5 above MMT. LTG Duration 8 weeks 5 [employer] Material Inspector Goal (LTG) Pt will perform progressive HEP including postural, VOR, intrascapular, core and shoulder strengthening, breathing and relaxation and balance exercises to return to prior active LOF by 11/11/2019. 09/12/2019: Pt has been performing HEP as able d/t work constraints LTG Duration 8 weeks 4 [employer] Material Inspector Goal (LTG) Pt will report a 50% improvement in dizziness sxs to decrease fall risk by 2019. 09/12/2019: Pt reports an 8% improvement in dizziness since starting PT. She is at work longer and is off one med completely and is weaning off Bupropion. LTG Duration 8 weeks 3 [employer] Material Inspector Goal (LTG) Pt will report a 50% improvement in neck pain to improve cervical ROM with VOR exercises by 11/11/2019. 09/12/2019: Pt reports a 5% improvement in neck pain since starting PT. She thinks the VOR exercise side to side is helpful. The vertical nods are still troublesome. LTG Duration 8 weeks 2 Care Home Goal (LTG) Pt will perform WNLs on Functional Gait Index to decrease fall risk by 11/11/2019 . 09/12/2019:FGA 24/30 LTG Duration 8 weeks 1 Impairment DHI reflects moderate perception of handicap Care Home Goal (LTG) Pt will present with an improved DHI score to reflect no more than mild perception of handicap by 11/11/2019. 09/12/2019: DHI score reflects 42%, moderate perception of handicap LTG Duration 8 weeks Assessment Summary Assessment Pt reaches threshold for dizziness sooner but performs more in shorter time today. Pt is progressing with balance exercises today, tolerates more passes close to her chest , PT moving forward to her. She is symptomatic after, including dizziness and headache. She is able to perform further neuromuscular re-ed after ball passes after many reps. Con't PT for vestibular and balance exercises, manual work, relaxation and strengthening as appropriate. Physical Therapy Plan Frequency and Duration Frequency of Treatment 2x/Week Duration of Treatment 8 weeks Plan of Care Start Date 09/12/19 Plan of Care End Date 11/11/19 Therapeutic Interventions Therapeutic Interventions Balance Training,Canalithic Repositioning,Coordination Training,Home Exercise Program ,Manual Therapy,Neuromuscular Re-education,Patient/Caregiver Education,Self-Care/Home Management,Sensory Integration ,Soft Tissue Mobilization, Taping,Therapeutic Exercises, Vestibular Rehabilitation Next Visit Focus/Plan Next Note Type Treatment Note Next Visit Plan Progress ongoing balance, vestibular, relaxation exercises and deep neck flexor strengthening. Consider progressive plank, thoracic mobility
--- NOTE | 2019-10-16 08:21 | PT.OTN ---
Current Diagnoses Sprain of ligaments of cervical spine, initial encounter (10/16/19) Physical Therapy Treatment Note PT-OP-A Visit Information Start: 07/30/19 12:16 Freq: Status: Active Protocol: Document 10/16/19 07:31 MB (Rec: 10/16/19 08:21 MB [id number]) Out-Patient Physical Therapy Visit Information Visit Information Visit Type Treatment Note Visit Note New auth 12 visits Visit Start Time 07:31 Visit Stop Time 08:14 Total Visit Minutes 43 Visit Number 05/22 PT-OP-B Current Condition Start: 07/30/19 12:16 Freq: Status: Active Protocol: Document 07/30/19 12:20 MB (Rec: 07/30/19 13:05 MB [id number]) Current Condition History of Current Condition Onset Date 05/01/2018 History of Current Condition Pt went to DO for work-up for migraines. She had high velocity manipulation to her cervical spine and then started having severe neck pain on 05/11/18. She went to the ED and had a pain injection and Oxycontin. She started having vertigo. She did not drive much for 2 months. 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 She has been doing rehab for her neck strength. In May 2018, she started have right hand paresthesia and weakness. She ended up having ulnar nerve transposition 11/26. She then went to OT and got her strength back. She had ablation of C3-7 nerve roots to help with pain relief and increase neck ROM. Her headaches are not better. Her neck ROM is better. She now knows that neck is causing migraines. She is seeing a pain specialist and he performed the ablation 06/02/19. He suggested pt see vestibular PT . Her migraine symptoms are: pressure occiput and wrap up over her head and pull on her brain. She feels her teeth quite often. Her Lyrica was doubled. She has constant SIFUENTES. Pt has nightmares about cracking of joints with relation to her injury. Sleeping is fitful. Bending over makes her the most dizzy. She states that she feels the dizziness when she goes to get back up. She feels like her head gets overpressured. Changing positions can get her. Leaning too far forward is troublesome. She feels like she needs to push herself into something to get tactile sensation. She feels like she needs to get a hold of herself. Pt reports pain rated 2-4 in her right arm and 4-7 in her neck. Jarring in car hurts her . She does report light- headedness. Her eyes feel tired. She had some floaters in the past. She denies hearing changes, tinnitus and dizziness rolling in the bed. She has sinus issues. She reports jaw tightness. She takes a B12 supplement and she had a deficiency. Pt reports she has trust issues with providers after the DO manipulation. She has occ numbness and tingling in right arm. She has shoulder lock-ups. Prior Treatments and Tests OT, PT MRI head and pt reports negative MRI/MRA head and neck with and without contrast Treatment Goals Patient/Caregiver Goals To get better, get back to work PT-OP-C Subjective Start: 07/30/19 12:16 Freq: Status: Active Protocol: Document 10/16/19 07:31 MB (Rec: 10/16/19 08:21 MB [id number]) OP-PT Subjective Patient Comments Patient Comments Pt states that she was running behind after going to the gym . Pt has appointment with ENT 11/10/2019. PT-OP-K Range of Motion Start: 07/30/19 12:16 Freq: Status: Active Protocol: Document 07/30/19 12:20 MB (Rec: 07/30/19 16:27 MB [id number]) Cervical Spine Range of Motion Cervical Spine Active Flexion 30 Extension 15 Rotation Left 40 Rotation Right 45 Comments Pt reports 5-6/10 pain with cervical extensio. She presents with left SB posture at rest that increases with left cervical rotation PT-OP-M Strength Start: 07/30/19 12:16 Freq: Status: Active Protocol: Document 07/30/19 12:20 MB (Rec: 07/30/19 16:27 MB [id number]) Shoulder Strength Shoulder Manual Muscle Testing Left Flexion 5 Normal Abduction (C5) 5 Normal Right Flexion 4 Good Abduction (C5) 4 Good Elbow/Forearm Strength Elbow and Forearm Manual Muscle Testing Left Flexion (C6) 5 Normal Extension (C7) 5 Normal Pronation 5 Normal Supination 5 Normal Right Flexion (C6) 5 Normal Extension (C7) 5 Normal Pronation 4 Good Supination 4 Good Wrist Strength Wrist Manual Muscle Testing Left Flexion (C7) 5 Normal Extension (C6) 5 Normal Right Flexion (C7) 5 Normal Extension (C6) 4 Good PT-OP-O Vestibular Start: 07/30/19 16:27 Freq: Status: Active Protocol: Document 07/30/19 12:20 MB (Rec: 07/30/19 16:29 MB [id number]) Vestibular Assessment Visual Testing Smooth Pursuits Horizontal Normal Smooth Pursuits Vertical Normal Saccades Horizontal Normal Gaze Evoked Nystagmus With Fixation Negative Convergence Test Impaired Spontaneous Nystagmus Negative Comments Vestibular Comments Pt denies tinnitus and hearing changes. She does state that she has sinus issues and teeth pain, mostly upper teeth. She states she clenches her jaw. PT-OP-Q Treatments Start: 07/30/19 12:16 Freq: Status: Active Protocol: Document 10/16/19 07:31 MB (Rec: 10/16/19 08:21 MB [id number]) Therapeutic Exercises Supine Exercises Pool noodle, abdominal drawing in with pelvic tilt, diaphragmatic breathing and pect stretch Comments Performed today and added to HEP Diaphragmatic breathing Comments Ed today, pt performs all, added to HEP Standing Exercises Racquet ball massage intrascapular muscles, infra Comments Intrascapular/paraspinal mob with head turns Manual Therapy Treatment Manual Techniques Positional release masseter and temporalis Comments B today and improved jaw mobility and pain after treatment PT-OP-T Assessment and Plan Start: 07/30/19 12:16 Freq: Status: Active Protocol: Document 10/16/19 07:31 MB (Rec: 10/16/19 08:21 MB [id number]) Physical Therapy Assessment Goals Imbalance Custodial Goal (LTG) Pt will perform Romberg with eyes closed and socks only for at least 30 sec to decrease fall risk by 11/11/2019. 09/12/2019: LOB posteriorly 2 sec and requires asst to prevent fall LTG Duration 8 weeks 6 Hop Worker Goal (LTG) Pt will present with right shoulder flexion and abduction and right wrist supination, pronation and extension strength to 5/5 by 09/29/2019. 09/12/2019: Pt presents with 5/5 above MMT. LTG Duration 8 weeks 5 Custodial Goal (LTG) Pt will perform progressive HEP including postural, VOR, intrascapular, core and shoulder strengthening, breathing and relaxation and balance exercises to return to prior active LOF by 11/11/2019. 09/12/2019: Pt has been performing HEP as able d/t work constraints LTG Duration 8 weeks 4 Custodial Goal (LTG) Pt will report a 50% improvement in dizziness sxs to decrease fall risk by 2019. 09/12/2019: Pt reports an 8% improvement in dizziness since starting PT. She is at work longer and is off one med completely and is weaning off Bupropion. LTG Duration 8 weeks 3 Hop Worker Goal (LTG) Pt will report a 50% improvement in neck pain to improve cervical ROM with VOR exercises by 11/11/2019. 09/12/2019: Pt reports a 5% improvement in neck pain since starting PT. She thinks the VOR exercise side to side is helpful. The vertical nods are still troublesome. LTG Duration 8 weeks 2 Hop Worker Goal (LTG) Pt will perform WNLs on Functional Gait Index to decrease fall risk by 11/11/2019 . 09/12/2019:FGA 2430 LTG Duration 8 weeks 1 Impairment DHI reflects moderate perception of handicap Custodial Goal (LTG) Pt will present with an improved DHI score to reflect no more than mild perception of handicap by 11/11/2019. 09/12/2019: DHI score reflects 42%, moderate perception of handicap LTG Duration 8 weeks Assessment Summary Assessment Pt is tolerating more--working out before work, full-time work. She is performing vestibular exercises. Con't per POC. Physical Therapy Plan Frequency and Duration Frequency of Treatment 2x/Week Duration of Treatment 8 weeks Plan of Care Start Date 09/12/19 Plan of Care End Date 11/11/19 Therapeutic Interventions Therapeutic Interventions Balance Training,Canalithic Repositioning,Coordination Training,Home Exercise Program ,Manual Therapy,Neuromuscular Re-education,Patient/Caregiver Education,Self-Care/Home Management,Sensory Integration ,Soft Tissue Mobilization, Taping,Therapeutic Exercises, Vestibular Rehabilitation Next Visit Focus/Plan Next Note Type Treatment Note Next Visit Plan Progress ongoing balance, vestibular, relaxation exercises and deep neck flexor strengthening. Consider progressive plank, thoracic mobility
--- NOTE | 2019-10-20 09:00 | PT.OTN ---
Current Diagnoses Sprain of ligaments of cervical spine, initial encounter (10/20/19) Physical Therapy Treatment Note PT-OP-A Visit Information Start: 07/30/19 12:16 Freq: Status: Active Protocol: Document 10/20/19 08:17 MB (Rec: 10/20/19 09:00 MB [id number]) Out-Patient Physical Therapy Visit Information Visit Information Visit Type Treatment Note Visit Note New auth 12 visits Visit Start Time 08:17 Visit Stop Time 08:59 Total Visit Minutes 42 Visit Number 06/21 PT-OP-B Current Condition Start: 07/30/19 12:16 Freq: Status: Active Protocol: Document 07/30/19 12:20 MB (Rec: 07/30/19 13:05 MB [id number]) Current Condition History of Current Condition Onset Date 05/01/2018 History of Current Condition Pt went to DO for work-up for migraines. She had high velocity manipulation to her cervical spine and then started having severe neck pain on 05/11/18. She went to the ED and had a pain injection and Oxycontin. She started having vertigo. She did not drive much for 2 months. 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 She has been doing rehab for her neck strength. In May 2018, she started have right hand paresthesia and weakness. She ended up having ulnar nerve transposition 11/26. She then went to OT and got her strength back. She had ablation of C3-7 nerve roots to help with pain relief and increase neck ROM. Her headaches are not better. Her neck ROM is better. She now knows that neck is causing migraines. She is seeing a pain specialist and he performed the ablation 06/02/19. He suggested pt see vestibular PT . Her migraine symptoms are: pressure occiput and wrap up over her head and pull on her brain. She feels her teeth quite often. Her Lyrica was doubled. She has constant SIFUENTES. Pt has nightmares about cracking of joints with relation to her injury. Sleeping is fitful. Bending over makes her the most dizzy. She states that she feels the dizziness when she goes to get back up. She feels like her head gets overpressured. Changing positions can get her. Leaning too far forward is troublesome. She feels like she needs to push herself into something to get tactile sensation. She feels like she needs to get a hold of herself. Pt reports pain rated 2-4 in her right arm and 4-7 in her neck. Jarring in car hurts her . She does report light- headedness. Her eyes feel tired. She had some floaters in the past. She denies hearing changes, tinnitus and dizziness rolling in the bed. She has sinus issues. She reports jaw tightness. She takes a B12 supplement and she had a deficiency. Pt reports she has trust issues with providers after the DO manipulation. She has occ numbness and tingling in right arm. She has shoulder lock-ups. Prior Treatments and Tests OT, PT MRI head and pt reports negative MRI/MRA head and neck with and without contrast Treatment Goals Patient/Caregiver Goals To get better, get back to work PT-OP-C Subjective Start: 07/30/19 12:16 Freq: Status: Active Protocol: Document 10/20/19 08:17 MB (Rec: 10/20/19 09:00 MB [id number]) OP-PT Subjective Patient Comments Patient Comments Pt states that she had a headache start yesterday and is feeling off today. PT-OP-K Range of Motion Start: 07/30/19 12:16 Freq: Status: Active Protocol: Document 07/30/19 12:20 MB (Rec: 07/30/19 16:27 MB [id number]) Cervical Spine Range of Motion Cervical Spine Active Flexion 30 Extension 15 Rotation Left 40 Rotation Right 45 Comments Pt reports 5-6/10 pain with cervical extensio. She presents with left SB posture at rest that increases with left cervical rotation PT-OP-M Strength Start: 07/30/19 12:16 Freq: Status: Active Protocol: Document 07/30/19 12:20 MB (Rec: 07/30/19 16:27 MB [id number]) Shoulder Strength Shoulder Manual Muscle Testing Left Flexion 5 Normal Abduction (C5) 5 Normal Right Flexion 4 Good Abduction (C5) 4 Good Elbow/Forearm Strength Elbow and Forearm Manual Muscle Testing Left Flexion (C6) 5 Normal Extension (C7) 5 Normal Pronation 5 Normal Supination 5 Normal Right Flexion (C6) 5 Normal Extension (C7) 5 Normal Pronation 4 Good Supination 4 Good Wrist Strength Wrist Manual Muscle Testing Left Flexion (C7) 5 Normal Extension (C6) 5 Normal Right Flexion (C7) 5 Normal Extension (C6) 4 Good PT-OP-O Vestibular Start: 07/30/19 16:27 Freq: Status: Active Protocol: Document 07/30/19 12:20 MB (Rec: 07/30/19 16:29 MB [id number]) Vestibular Assessment Visual Testing Smooth Pursuits Horizontal Normal Smooth Pursuits Vertical Normal Saccades Horizontal Normal Gaze Evoked Nystagmus With Fixation Negative Convergence Test Impaired Spontaneous Nystagmus Negative Comments Vestibular Comments Pt denies tinnitus and hearing changes. She does state that she has sinus issues and teeth pain, mostly upper teeth. She states she clenches her jaw. PT-OP-Q Treatments Start: 07/30/19 12:16 Freq: Status: Active Protocol: Document 10/20/19 08:17 MB (Rec: 10/20/19 09:00 MB [id number]) Manual Therapy Treatment Manual Techniques Counterstrain Comments Pt agrees to Counterstrain to assess and treat fascial tension and PT treats stacks: lymphatic venous and neural scan high today. Suboccipital release PT-OP-T Assessment and Plan Start: 07/30/19 12:16 Freq: Status: Active Protocol: Document 10/20/19 08:17 MB (Rec: 10/20/19 09:00 MB [id number]) Physical Therapy Assessment Rehab Potential Rehabilitation Potential Fair Evaluation Complexity Number of Personal Factors/Comorbidities 3 or More Number of Body Systems Impaired 4 or More Clinical Presentation at Evaluation Unstable Impairments Impairments Activity Tolerance,Balance, Coordination,Pain,Posture,ROM, Strength,Vestibular Other Impairments Decreased affect, inability to perform full work duties, occ difficulty driving d/t symptoms, taking multiple medications. Body systems include musculoskeletal, vestibular, psychosocial, neurological s/p nerve ablation. Her clinical picture is evolving to unstable. Goals Imbalance Gameroom Technician Goal (LTG) Pt will perform Romberg with eyes closed and socks only for at least 30 sec to decrease fall risk by 11/11/2019. 09/12/2019: LOB posteriorly 2 sec and requires asst to prevent fall LTG Duration 8 weeks 6 Gameroom Technician Goal (LTG) Pt will present with right shoulder flexion and abduction and right wrist supination, pronation and extension strength to 5/5 by 09/29/2019. 09/12/2019: Pt presents with 5/5 above MMT. LTG Duration 8 weeks 5 Care Home Goal (LTG) Pt will perform progressive HEP including postural, VOR, intrascapular, core and shoulder strengthening, breathing and relaxation and balance exercises to return to prior active LOF by 11/11/2019. 09/12/2019: Pt has been performing HEP as able d/t work constraints LTG Duration 8 weeks 4 Gameroom Technician Goal (LTG) Pt will report a 50% improvement in dizziness sxs to decrease fall risk by 2019. 09/12/2019: Pt reports an 8% improvement in dizziness since starting PT. She is at work longer and is off one med completely and is weaning off Bupropion. LTG Duration 8 weeks 3 Care Home Goal (LTG) Pt will report a 50% improvement in neck pain to improve cervical ROM with VOR exercises by 11/11/2019. 09/12/2019: Pt reports a 5% improvement in neck pain since starting PT. She thinks the VOR exercise side to side is helpful. The vertical nods are still troublesome. LTG Duration 8 weeks 2 Gameroom Technician Goal (LTG) Pt will perform WNLs on Functional Gait Index to decrease fall risk by 11/11/2019 . 09/12/2019:FGA 24/30 LTG Duration 8 weeks 1 Impairment DHI reflects moderate perception of handicap Gameroom Technician Goal (LTG) Pt will present with an improved DHI score to reflect no more than mild perception of handicap by 11/11/2019. 09/12/2019: DHI score reflects 42%, moderate perception of handicap LTG Duration 8 weeks Assessment Summary Assessment Pt con't with extensive fascial tension today in setting of headache and stress over the weekend. Con't PT for vestibular and balance exercises, manual work, relaxation and strengthening as appropriate. Physical Therapy Plan Frequency and Duration Frequency of Treatment 2x/Week Duration of Treatment 8 weeks Plan of Care Start Date 09/12/19 Plan of Care End Date 11/11/19 Therapeutic Interventions Therapeutic Interventions Balance Training,Canalithic Repositioning,Coordination Training,Home Exercise Program ,Manual Therapy,Neuromuscular Re-education,Patient/Caregiver Education,Self-Care/Home Management,Sensory Integration ,Soft Tissue Mobilization, Taping,Therapeutic Exercises, Vestibular Rehabilitation Next Visit Focus/Plan Next Note Type Treatment Note Next Visit Plan Progress ongoing balance, vestibular, relaxation exercises and deep neck flexor strengthening. Consider progressive plank, thoracic mobility
--- NOTE | 2019-10-23 08:57 | PT.OTN ---
Current Diagnoses Sprain of ligaments of cervical spine, initial encounter (10/23/19) Physical Therapy Treatment Note PT-OP-A Visit Information Start: 07/30/19 12:16 Freq: Status: Active Protocol: Document 10/23/19 08:13 MB (Rec: 10/23/19 08:39 MB [id number]) Out-Patient Physical Therapy Visit Information Visit Information Visit Type Treatment Note Visit Note New auth 12 visits Visit Start Time 08:13 Visit Stop Time 08:53 Total Visit Minutes 40 Visit Number 07/22 PT-OP-B Current Condition Start: 07/30/19 12:16 Freq: Status: Active Protocol: Document 07/30/19 12:20 MB (Rec: 07/30/19 13:05 MB [id number]) Current Condition History of Current Condition Onset Date 05/01/2018 History of Current Condition Pt went to DO for work-up for migraines. She had high velocity manipulation to her cervical spine and then started having severe neck pain on 05/11/18. She went to the ED and had a pain injection and Oxycontin. She started having vertigo. She did not drive much for 2 months. 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 She has been doing rehab for her neck strength. In May 2018, she started have right hand paresthesia and weakness. She ended up having ulnar nerve transposition 11/26. She then went to OT and got her strength back. She had ablation of C3-7 nerve roots to help with pain relief and increase neck ROM. Her headaches are not better. Her neck ROM is better. She now knows that neck is causing migraines. She is seeing a pain specialist and he performed the ablation 06/02/19. He suggested pt see vestibular PT . Her migraine symptoms are: pressure occiput and wrap up over her head and pull on her brain. She feels her teeth quite often. Her Lyrica was doubled. She has constant SIFUENTES. Pt has nightmares about cracking of joints with relation to her injury. Sleeping is fitful. Bending over makes her the most dizzy. She states that she feels the dizziness when she goes to get back up. She feels like her head gets overpressured. Changing positions can get her. Leaning too far forward is troublesome. She feels like she needs to push herself into something to get tactile sensation. She feels like she needs to get a hold of herself. Pt reports pain rated 2-4 in her right arm and 4-7 in her neck. Jarring in car hurts her . She does report light- headedness. Her eyes feel tired. She had some floaters in the past. She denies hearing changes, tinnitus and dizziness rolling in the bed. She has sinus issues. She reports jaw tightness. She takes a B12 supplement and she had a deficiency. Pt reports she has trust issues with providers after the DO manipulation. She has occ numbness and tingling in right arm. She has shoulder lock-ups. Prior Treatments and Tests OT, PT MRI head and pt reports negative MRI/MRA head and neck with and without contrast Treatment Goals Patient/Caregiver Goals To get better, get back to work PT-OP-C Subjective Start: 07/30/19 12:16 Freq: Status: Active Protocol: Document 10/23/19 08:13 MB (Rec: 10/23/19 08:39 MB [id number]) OP-PT Subjective Patient Comments Patient Comments Pt contacted doctor for another PT order/auth. Pt states that she has had a bad migraine all week since Sunday . This has been a bad one that has limited her activities at the gym in the morning. PT-OP-K Range of Motion Start: 07/30/19 12:16 Freq: Status: Active Protocol: Document 07/30/19 12:20 MB (Rec: 07/30/19 16:27 MB [id number]) Cervical Spine Range of Motion Cervical Spine Active Flexion 30 Extension 15 Rotation Left 40 Rotation Right 45 Comments Pt reports 5-6/10 pain with cervical extensio. She presents with left SB posture at rest that increases with left cervical rotation PT-OP-M Strength Start: 07/30/19 12:16 Freq: Status: Active Protocol: Document 07/30/19 12:20 MB (Rec: 07/30/19 16:27 MB [id number]) Shoulder Strength Shoulder Manual Muscle Testing Left Flexion 5 Normal Abduction (C5) 5 Normal Right Flexion 4 Good Abduction (C5) 4 Good Elbow/Forearm Strength Elbow and Forearm Manual Muscle Testing Left Flexion (C6) 5 Normal Extension (C7) 5 Normal Pronation 5 Normal Supination 5 Normal Right Flexion (C6) 5 Normal Extension (C7) 5 Normal Pronation 4 Good Supination 4 Good Wrist Strength Wrist Manual Muscle Testing Left Flexion (C7) 5 Normal Extension (C6) 5 Normal Right Flexion (C7) 5 Normal Extension (C6) 4 Good PT-OP-O Vestibular Start: 07/30/19 16:27 Freq: Status: Active Protocol: Document 07/30/19 12:20 MB (Rec: 07/30/19 16:29 MB [id number]) Vestibular Assessment Visual Testing Smooth Pursuits Horizontal Normal Smooth Pursuits Vertical Normal Saccades Horizontal Normal Gaze Evoked Nystagmus With Fixation Negative Convergence Test Impaired Spontaneous Nystagmus Negative Comments Vestibular Comments Pt denies tinnitus and hearing changes. She does state that she has sinus issues and teeth pain, mostly upper teeth. She states she clenches her jaw. PT-OP-Q Treatments Start: 07/30/19 12:16 Freq: Status: Active Protocol: Document 10/23/19 08:13 MB (Rec: 10/23/19 08:39 MB [id number]) Therapeutic Exercises Supine Exercises Butekyo breathing Supine Exercise Name Multiple reps with hold time and O2 and HR below. Start O2 and HR: 97%, 67 Comments 1st trial: 13 sec 98%, 63 BPM; 2nd: pt opens mouth; 3rd: 19 sec, 99%, 65 Diaphragmatic breathing Comments Performed today during suboccipital release Sitting Exercises Diaphragmatic breathing Comments Performed many reps during suboccipital release in supine Manual Therapy Treatment Manual Techniques Suboccipital release Comments Prolonged performance this date to help with muscular tension and head pressure PT-OP-T Assessment and Plan Start: 07/30/19 12:16 Freq: Status: Active Protocol: Document 10/23/19 08:13 MB (Rec: 10/23/19 08:39 MB [id number]) Physical Therapy Assessment Rehab Potential Rehabilitation Potential Fair Evaluation Complexity Number of Personal Factors/Comorbidities 3 or More Number of Body Systems Impaired 4 or More Clinical Presentation at Evaluation Unstable Impairments Impairments Activity Tolerance,Balance, Coordination,Pain,Posture,ROM, Strength,Vestibular Other Impairments Decreased affect, inability to perform full work duties, occ difficulty driving d/t symptoms, taking multiple medications. Body systems include musculoskeletal, vestibular, psychosocial, neurological s/p nerve ablation. Her clinical picture is evolving to unstable. Goals Imbalance Senior Living Goal (LTG) Pt will perform Romberg with eyes closed and socks only for at least 30 sec to decrease fall risk by 11/11/2019. 09/12/2019: LOB posteriorly 2 sec and requires asst to prevent fall LTG Duration 8 weeks 6 Partnership Manager Goal (LTG) Pt will present with right shoulder flexion and abduction and right wrist supination, pronation and extension strength to 5/5 by 09/29/2019. 09/12/2019: Pt presents with 5/5 above MMT. LTG Duration 8 weeks 5 [facility] Living Goal (LTG) Pt will perform progressive HEP including postural, VOR, intrascapular, core and shoulder strengthening, breathing and relaxation and balance exercises to return to prior active LOF by 11/11/2019. 09/12/2019: Pt has been performing HEP as able d/t work constraints LTG Duration 8 weeks 4 [facility] Goal (LTG) Pt will report a 50% improvement in dizziness sxs to decrease fall risk by 2019. 09/12/2019: Pt reports an 8% improvement in dizziness since starting PT. She is at work longer and is off one med completely and is weaning off Bupropion. LTG Duration 8 weeks 3 Partnership Manager Goal (LTG) Pt will report a 50% improvement in neck pain to improve cervical ROM with VOR exercises by 11/11/2019. 09/12/2019: Pt reports a 5% improvement in neck pain since starting PT. She thinks the VOR exercise side to side is helpful. The vertical nods are still troublesome. LTG Duration 8 weeks 2 [facility] Goal (LTG) Pt will perform WNLs on Functional Gait Index to decrease fall risk by 11/11/2019 . 09/12/2019:FGA 24/30 LTG Duration 8 weeks 1 Impairment DHI reflects moderate perception of handicap Senior Living Goal (LTG) Pt will present with an improved DHI score to reflect no more than mild perception of handicap by 11/11/2019. 09/12/2019: DHI score reflects 42%, moderate perception of handicap LTG Duration 8 weeks Assessment Summary Assessment Initiated Butekyo breathing today and pt has trouble with nasal breathing. Her O2 increases and her HR decreases with exercises, so this is helpful for parasympathetic response. Heat on neck and ice over eyes and forehead for 10 minutes after treatment. Con' t PT for vestibular and balance exercises, manual work , relaxation and strengthening as appropriate. Physical Therapy Plan Frequency and Duration Frequency of Treatment 2x/Week Duration of Treatment 8 weeks Plan of Care Start Date 09/12/19 Plan of Care End Date 11/11/19 Therapeutic Interventions Therapeutic Interventions Balance Training,Canalithic Repositioning,Coordination Training,Home Exercise Program ,Manual Therapy,Neuromuscular Re-education,Patient/Caregiver Education,Self-Care/Home Management,Sensory Integration ,Soft Tissue Mobilization, Taping,Therapeutic Exercises, Vestibular Rehabilitation Next Visit Focus/Plan Next Note Type Treatment Note Next Visit Plan Progress ongoing balance, vestibular, relaxation exercises and deep neck flexor strengthening. Consider progressive plank, thoracic mobility
--- NOTE | 2019-10-27 08:57 | PT.OTN ---
Current Diagnoses Sprain of ligaments of cervical spine, initial encounter (10/27/19) Physical Therapy Treatment Note PT-OP-A Visit Information Start: 07/30/19 12:16 Freq: Status: Active Protocol: Document 10/27/19 08:17 MB (Rec: 10/27/19 08:56 MB [id number]) Out-Patient Physical Therapy Visit Information Visit Information Visit Type Treatment Note Visit Note New auth 12 visits Visit Start Time 08:17 Visit Stop Time 08:52 Total Visit Minutes 35 Visit Number 08/21 PT-OP-B Current Condition Start: 07/30/19 12:16 Freq: Status: Active Protocol: Document 07/30/19 12:20 MB (Rec: 07/30/19 13:05 MB [id number]) Current Condition History of Current Condition Onset Date 05/01/2018 History of Current Condition Pt went to DO for work-up for migraines. She had high velocity manipulation to her cervical spine and then started having severe neck pain on 05/11/18. She went to the ED and had a pain injection and Oxycontin. She started having vertigo. She did not drive much for 2 months. 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 She has been doing rehab for her neck strength. In May 2018, she started have right hand paresthesia and weakness. She ended up having ulnar nerve transposition 11/26. She then went to OT and got her strength back. She had ablation of C3-7 nerve roots to help with pain relief and increase neck ROM. Her headaches are not better. Her neck ROM is better. She now knows that neck is causing migraines. She is seeing a pain specialist and he performed the ablation 06/02/19. He suggested pt see vestibular PT . Her migraine symptoms are: pressure occiput and wrap up over her head and pull on her brain. She feels her teeth quite often. Her Lyrica was doubled. She has constant SIFUENTES. Pt has nightmares about cracking of joints with relation to her injury. Sleeping is fitful. Bending over makes her the most dizzy. She states that she feels the dizziness when she goes to get back up. She feels like her head gets overpressured. Changing positions can get her. Leaning too far forward is troublesome. She feels like she needs to push herself into something to get tactile sensation. She feels like she needs to get a hold of herself. Pt reports pain rated 2-4 in her right arm and 4-7 in her neck. Jarring in car hurts her . She does report light- headedness. Her eyes feel tired. She had some floaters in the past. She denies hearing changes, tinnitus and dizziness rolling in the bed. She has sinus issues. She reports jaw tightness. She takes a B12 supplement and she had a deficiency. Pt reports she has trust issues with providers after the DO manipulation. She has occ numbness and tingling in right arm. She has shoulder lock-ups. Prior Treatments and Tests OT, PT MRI head and pt reports negative MRI/MRA head and neck with and without contrast Treatment Goals Patient/Caregiver Goals To get better, get back to work PT-OP-C Subjective Start: 07/30/19 12:16 Freq: Status: Active Protocol: Document 10/27/19 08:17 MB (Rec: 10/27/19 08:56 MB [id number]) OP-PT Subjective Patient Comments Patient Comments She has not yet heard about auth. She is feeling a little better today and is up for exercises. PT-OP-K Range of Motion Start: 07/30/19 12:16 Freq: Status: Active Protocol: Document 07/30/19 12:20 MB (Rec: 07/30/19 16:27 MB [id number]) Cervical Spine Range of Motion Cervical Spine Active Flexion 30 Extension 15 Rotation Left 40 Rotation Right 45 Comments Pt reports 5-6/10 pain with cervical extensio. She presents with left SB posture at rest that increases with left cervical rotation PT-OP-M Strength Start: 07/30/19 12:16 Freq: Status: Active Protocol: Document 07/30/19 12:20 MB (Rec: 07/30/19 16:27 MB [id number]) Shoulder Strength Shoulder Manual Muscle Testing Left Flexion 5 Normal Abduction (C5) 5 Normal Right Flexion 4 Good Abduction (C5) 4 Good Elbow/Forearm Strength Elbow and Forearm Manual Muscle Testing Left Flexion (C6) 5 Normal Extension (C7) 5 Normal Pronation 5 Normal Supination 5 Normal Right Flexion (C6) 5 Normal Extension (C7) 5 Normal Pronation 4 Good Supination 4 Good Wrist Strength Wrist Manual Muscle Testing Left Flexion (C7) 5 Normal Extension (C6) 5 Normal Right Flexion (C7) 5 Normal Extension (C6) 4 Good PT-OP-O Vestibular Start: 07/30/19 16:27 Freq: Status: Active Protocol: Document 07/30/19 12:20 MB (Rec: 07/30/19 16:29 MB [id number]) Vestibular Assessment Visual Testing Smooth Pursuits Horizontal Normal Smooth Pursuits Vertical Normal Saccades Horizontal Normal Gaze Evoked Nystagmus With Fixation Negative Convergence Test Impaired Spontaneous Nystagmus Negative Comments Vestibular Comments Pt denies tinnitus and hearing changes. She does state that she has sinus issues and teeth pain, mostly upper teeth. She states she clenches her jaw. PT-OP-Q Treatments Start: 07/30/19 12:16 Freq: Status: Active Protocol: Document 10/27/19 08:17 MB (Rec: 10/27/19 08:56 MB [id number]) Neuro Re-Education Treatment Balance Activities Backwards walking over hurdles, alternating looking down and back right and lef Comments Pt reports some neck stiffness , must hold on, 1 rep only Walking over low hurdles onto unstable foam Comments No UE support for going forward, 5 reps, slow gait Forward and backward weight shifting in standing, heels together Comments 20 sec, step strategy backwards x2 and then wall catches her third LOB. Trouble with weight shift backwards; 20 sec and similar step backwards; 20 sec and then more easily LOB and step strategy and wall catching her the third trial Step-to fencing 2 steps forward and 2 steps back with pool noodles Comments Pt performs 5', is able to talk throughout Basket ball passes standing on blue foam Comments Pt tolerates 5' of chest and floor passes today without break, even tolerating intermittent close chest passes x4, 5 reps each PT-OP-T Assessment and Plan Start: 07/30/19 12:16 Freq: Status: Active Protocol: Document 10/27/19 08:17 MB (Rec: 10/27/19 08:56 MB [id number]) Physical Therapy Assessment Rehab Potential Rehabilitation Potential Fair Evaluation Complexity Number of Personal Factors/Comorbidities 3 or More Number of Body Systems Impaired 4 or More Clinical Presentation at Evaluation Unstable Impairments Impairments Activity Tolerance,Balance, Coordination,Pain,Posture,ROM, Strength,Vestibular Other Impairments Decreased affect, inability to perform full work duties, occ difficulty driving d/t symptoms, taking multiple medications. Body systems include musculoskeletal, vestibular, psychosocial, neurological s/p nerve ablation. Her clinical picture is evolving to unstable. Goals Imbalance Loading Rack Supervisor Goal (LTG) Pt will perform Romberg with eyes closed and socks only for at least 30 sec to decrease fall risk by 11/11/2019. 09/12/2019: LOB posteriorly 2 sec and requires asst to prevent fall LTG Duration 8 weeks 6 Loading Rack Supervisor Goal (LTG) Pt will present with right shoulder flexion and abduction and right wrist supination, pronation and extension strength to 5/5 by 09/29/2019. 09/12/2019: Pt presents with 5/5 above MMT. LTG Duration 8 weeks 5 Loading Rack Supervisor Goal (LTG) Pt will perform progressive HEP including postural, VOR, intrascapular, core and shoulder strengthening, breathing and relaxation and balance exercises to return to prior active LOF by 11/11/2019. 09/12/2019: Pt has been performing HEP as able d/t work constraints LTG Duration 8 weeks 4 [facility] Goal (LTG) Pt will report a 50% improvement in dizziness sxs to decrease fall risk by 2019. 09/12/2019: Pt reports an 8% improvement in dizziness since starting PT. She is at work longer and is off one med completely and is weaning off Bupropion. LTG Duration 8 weeks 3 Loading Rack Supervisor Goal (LTG) Pt will report a 50% improvement in neck pain to improve cervical ROM with VOR exercises by 11/11/2019. 09/12/2019: Pt reports a 5% improvement in neck pain since starting PT. She thinks the VOR exercise side to side is helpful. The vertical nods are still troublesome. LTG Duration 8 weeks 2 Loading Rack Supervisor Goal (LTG) Pt will perform WNLs on Functional Gait Index to decrease fall risk by 11/11/2019 . 09/12/2019:FGA 24 LTG Duration 8 weeks 1 Impairment DHI reflects moderate perception of handicap [facility] Goal (LTG) Pt will present with an improved DHI score to reflect no more than mild perception of handicap by 11/11/2019. 09/12/2019: DHI score reflects 42%, moderate perception of handicap LTG Duration 8 weeks Assessment Summary Assessment Pt does not like Buteyko breathing. Con't to encourage her in diaphragmatic breathing . She tolerates 30 minutes of balance exercise today with minimal rest breaks and she is able to talk throughout therapy. Heat on neck and ice on forehead after treatment. Con't PT for vestibular and balance exercises, manual work , relaxation and strengthening as appropriate. Physical Therapy Plan Frequency and Duration Frequency of Treatment 2x/Week Duration of Treatment 8 weeks Plan of Care Start Date 09/12/19 Plan of Care End Date 11/11/19 Therapeutic Interventions Therapeutic Interventions Balance Training,Canalithic Repositioning,Coordination Training,Home Exercise Program ,Manual Therapy,Neuromuscular Re-education,Patient/Caregiver Education,Self-Care/Home Management,Sensory Integration ,Soft Tissue Mobilization, Taping,Therapeutic Exercises, Vestibular Rehabilitation Next Visit Focus/Plan Next Note Type Treatment Note Next Visit Plan Progress ongoing balance, vestibular, relaxation exercises and deep neck flexor strengthening. Consider progressive plank, thoracic mobility
--- NOTE | 2019-11-05 08:21 | PT-OP ANOTE ---
Pt states that she has been sick and this has made her dizziness symptoms worse. She did not end up going to the ENT d/t being overbooked. She got a foot injection. Her son has been quite sick. She is worried that reassessment findings would be skewed today and PT is in agreement. Hold PT today and perform reassessment on Sunday.
--- NOTE | 2019-11-07 08:16 | PT.OTN ---
Current Diagnoses Sprain of ligaments of cervical spine, initial encounter (11/07/19) Physical Therapy Treatment Note PT-OP-A Visit Information Start: 07/30/19 12:16 Freq: Status: Active Protocol: Document 11/07/19 07:34 MB (Rec: 11/07/19 08:16 MB [id number]) Out-Patient Physical Therapy Visit Information Visit Information Visit Type Progress Note Visit Note New auth 12 visits Visit Start Time 07:34 Visit Stop Time 08:15 Total Visit Minutes 41 Visit Number 09/21 PT-OP-B Current Condition Start: 07/30/19 12:16 Freq: Status: Active Protocol: Document 07/30/19 12:20 MB (Rec: 07/30/19 13:05 MB [id number]) Current Condition History of Current Condition Onset Date 05/01/2018 History of Current Condition Pt went to DO for work-up for migraines. She had high velocity manipulation to her cervical spine and then started having severe neck pain on 05/11/18. She went to the ED and had a pain injection and Oxycontin. She started having vertigo. She did not drive much for 2 months. 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 She has been doing rehab for her neck strength. In May 2018, she started have right hand paresthesia and weakness. She ended up having ulnar nerve transposition 11/26. She then went to OT and got her strength back. She had ablation of C3-7 nerve roots to help with pain relief and increase neck ROM. Her headaches are not better. Her neck ROM is better. She now knows that neck is causing migraines. She is seeing a pain specialist and he performed the ablation 06/02/19. He suggested pt see vestibular PT . Her migraine symptoms are: pressure occiput and wrap up over her head and pull on her brain. She feels her teeth quite often. Her Lyrica was doubled. She has constant SIFUENTES. Pt has nightmares about cracking of joints with relation to her injury. Sleeping is fitful. Bending over makes her the most dizzy. She states that she feels the dizziness when she goes to get back up. She feels like her head gets overpressured. Changing positions can get her. Leaning too far forward is troublesome. She feels like she needs to push herself into something to get tactile sensation. She feels like she needs to get a hold of herself. Pt reports pain rated 2-4 in her right arm and 4-7 in her neck. Jarring in car hurts her . She does report light- headedness. Her eyes feel tired. She had some floaters in the past. She denies hearing changes, tinnitus and dizziness rolling in the bed. She has sinus issues. She reports jaw tightness. She takes a B12 supplement and she had a deficiency. Pt reports she has trust issues with providers after the DO manipulation. She has occ numbness and tingling in right arm. She has shoulder lock-ups. Prior Treatments and Tests OT, PT MRI head and pt reports negative MRI/MRA head and neck with and without contrast Treatment Goals Patient/Caregiver Goals To get better, get back to work PT-OP-C Subjective Start: 07/30/19 12:16 Freq: Status: Active Protocol: Document 11/07/19 07:34 MB (Rec: 11/07/19 08:16 MB [id number]) OP-PT Subjective Patient Comments Patient Comments Pt states that she thinks she has made some gains with PT. Her tolerance to some exercises is getting better. She is not where she wants to be. 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 PT-OP-K Range of Motion Start: 07/30/19 12:16 Freq: Status: Active Protocol: Document 07/30/19 12:20 MB (Rec: 07/30/19 16:27 MB [id number]) Cervical Spine Range of Motion Cervical Spine Active Flexion 30 Extension 15 Rotation Left 40 Rotation Right 45 Comments Pt reports 5-6/10 pain with cervical extensio. She presents with left SB posture at rest that increases with left cervical rotation PT-OP-M Strength Start: 07/30/19 12:16 Freq: Status: Active Protocol: Document 07/30/19 12:20 MB (Rec: 07/30/19 16:27 MB [id number]) Shoulder Strength Shoulder Manual Muscle Testing Left Flexion 5 Normal Abduction (C5) 5 Normal Right Flexion 4 Good Abduction (C5) 4 Good Elbow/Forearm Strength Elbow and Forearm Manual Muscle Testing Left Flexion (C6) 5 Normal Extension (C7) 5 Normal Pronation 5 Normal Supination 5 Normal Right Flexion (C6) 5 Normal Extension (C7) 5 Normal Pronation 4 Good Supination 4 Good Wrist Strength Wrist Manual Muscle Testing Left Flexion (C7) 5 Normal Extension (C6) 5 Normal Right Flexion (C7) 5 Normal Extension (C6) 4 Good PT-OP-O Vestibular Start: 07/30/19 16:27 Freq: Status: Active Protocol: Document 07/30/19 12:20 MB (Rec: 07/30/19 16:29 MB [id number]) Vestibular Assessment Visual Testing Smooth Pursuits Horizontal Normal Smooth Pursuits Vertical Normal Saccades Horizontal Normal Gaze Evoked Nystagmus With Fixation Negative Convergence Test Impaired Spontaneous Nystagmus Negative Comments Vestibular Comments Pt denies tinnitus and hearing changes. She does state that she has sinus issues and teeth pain, mostly upper teeth. She states she clenches her jaw. PT-OP-Q Treatments Start: 07/30/19 12:16 Freq: Status: Active Protocol: Document 11/07/19 07:34 MB (Rec: 11/07/19 08:16 MB [id number]) Therapeutic Exercises Supine Exercises SCM self-massage with active movement Comments Re-ed today Sitting Exercises Diaphragmatic breathing Comments Re-ed today Standing Exercises Racquet ball massage intrascapular muscles, infra Comments Performed today Neuro Re-Education Treatment Balance Activities Romberg with EO and EC Comments 2 sec before LOB, added to HEP and pt to practice closing eyes only 1 sec and then reopen before LOB Coordination Activities FGA Comments 24/30 today and backwards walking was mildly better, more trouble on the steps today without rail PT-OP-T Assessment and Plan Start: 07/30/19 12:16 Freq: Status: Active Protocol: Document 11/07/19 07:34 MB (Rec: 11/07/19 08:16 MB [id number]) Physical Therapy Assessment Rehab Potential Rehabilitation Potential Fair Evaluation Complexity Number of Personal Factors/Comorbidities 3 or More Number of Body Systems Impaired 4 or More Clinical Presentation at Evaluation Unstable Impairments Impairments Activity Tolerance,Balance, Coordination,Pain,Posture,ROM, Strength,Vestibular Other Impairments Decreased affect, inability to perform full work duties, occ difficulty driving d/t symptoms, taking multiple medications. Body systems include musculoskeletal, vestibular, psychosocial, neurological s/p nerve ablation. Her clinical picture is evolving to unstable. Goals Imbalance Marine Extension Agent Goal (LTG) Pt will perform Romberg with eyes closed and socks only for at least 30 sec to decrease fall risk by . 11/07/2019: LOB posteriorly 2 sec and requires asst to prevent fall. Pt states this is the most difficult exercise . LTG Duration 8 weeks 5 Penitentiary Goal (LTG) Pt will perform progressive HEP including postural, VOR, intrascapular, core and shoulder strengthening, breathing and relaxation and balance exercises to return to prior active LOF by 01/06/2020 . 11/07/2019: Pt has been performing HEP exercises including racquet ball massage , UE strengthening. She occ does VOR eye chart exercise. LTG Duration 8 weeks 4 Penitentiary Goal (LTG) Pt will report a 50% improvement in dizziness sxs to decrease fall risk by 2019. 11/07/2019: Pt reports an 10% improvement in dizziness since starting PT. LTG Duration 8 weeks 3 Penitentiary Goal (LTG) Pt will report a 50% improvement in neck pain to improve cervical ROM with VOR exercises by 01/06/2020. 11/07/2019: Pt reports a 5% improvement in neck pain since starting PT. LTG Duration 8 weeks 2 Penitentiary Goal (LTG) Pt will perform WNLs on Functional Gait Index to decrease fall risk by 2019. 11/07/2019:FGA LTG Duration 8 weeks 1 Impairment DHI reflects moderate perception of handicap Marine Extension Agent Goal (LTG) Pt will present with an improved DHI score to reflect no more than mild perception of handicap by 01/06/2020. 11/07/2019: DHI score reflects 40%, moderate perception of handicap LTG Duration 8 weeks Assessment Summary Assessment Pt con't to make small gains towards PT and she has progressed towards all goals except FGA score is similar today. Her clinical presentation is complicated given cervical, vestibular and headache issues. She sees ENT on Sunday. Con't PT for vestibular and balance exercises, manual work, relaxation and strengthening as appropriate. Physical Therapy Plan Frequency and Duration Frequency of Treatment 2x/Week Duration of Treatment 8 weeks Plan of Care Start Date 11/07/19 Plan of Care End Date 01/06/20 Therapeutic Interventions Therapeutic Interventions Balance Training,Canalithic Repositioning,Coordination Training,Home Exercise Program ,Manual Therapy,Neuromuscular Re-education,Patient/Caregiver Education,Self-Care/Home Management,Sensory Integration ,Soft Tissue Mobilization, Taping,Therapeutic Exercises, Vestibular Rehabilitation Next Visit Focus/Plan Next Note Type Treatment Note Next Visit Plan Progress ongoing balance, vestibular, relaxation exercises and deep neck flexor strengthening. Consider progressive plank, thoracic mobility
--- NOTE | 2019-11-07 08:17 | PT.OPPOC ---
Physical, Occupational & Speech Therapy At [facility] Current Diagnoses Sprain of ligaments of cervical spine, initial encounter (11/07/19) Visit Care Team Role Provider Type Pelon Bates MD Primary Care Provider Non-Staff Specialty: Family Practice Address: [address] [place] [address], [id number] Email: Judie Osorio MD Attending Provider Non-Staff Specialty: Medical Address: [address] [place] [address], [id number] Email: Plan Of Care PT-OP-T Assessment and Plan Start: 07/30/19 12:16 Freq: Status: Active Protocol: Document 11/07/19 07:34 MB (Rec: 11/07/19 08:16 MB [id number]) Physical Therapy Assessment Rehab Potential Rehabilitation Potential Fair Evaluation Complexity Number of Personal Factors/Comorbidities 3 or More Number of Body Systems Impaired 4 or More Clinical Presentation at Evaluation Unstable Impairments Impairments Activity Tolerance,Balance, Coordination,Pain,Posture,ROM, Strength,Vestibular Other Impairments Decreased affect, inability to perform full work duties, occ difficulty driving d/t symptoms, taking multiple medications. Body systems include musculoskeletal, vestibular, psychosocial, neurological s/p nerve ablation. Her clinical picture is evolving to unstable. Goals Imbalance Long-Term Goal (LTG) Pt will perform Romberg with eyes closed and socks only for at least 30 sec to decrease fall risk by . 11/07/2019: LOB posteriorly 2 sec and requires asst to prevent fall. Pt states this is the most difficult exercise . LTG Duration 8 weeks 5 Long-Term Goal (LTG) Pt will perform progressive HEP including postural, VOR, intrascapular, core and shoulder strengthening, breathing and relaxation and balance exercises to return to prior active LOF by 01/06/2020 . 11/07/2019: Pt has been performing HEP exercises including racquet ball massage , UE strengthening. She occ does VOR eye chart exercise. LTG Duration 8 weeks 4 Long-Term Goal (LTG) Pt will report a 50% improvement in dizziness sxs to decrease fall risk by 2019. 11/07/2019: Pt reports an 10% improvement in dizziness since starting PT. LTG Duration 8 weeks 3 Pediatric Audiologist Goal (LTG) Pt will report a 50% improvement in neck pain to improve cervical ROM with VOR exercises by 01/06/2020. 11/07/2019: Pt reports a 5% improvement in neck pain since starting PT. LTG Duration 8 weeks 2 Pediatric Audiologist Goal (LTG) Pt will perform WNLs on Functional Gait Index to decrease fall risk by 2019. 11/07/2019:FGA LTG Duration 8 weeks 1 Impairment DHI reflects moderate perception of handicap Long-Term Goal (LTG) Pt will present with an improved DHI score to reflect no more than mild perception of handicap by 01/06/2020. 11/07/2019: DHI score reflects 40%, moderate perception of handicap LTG Duration 8 weeks Assessment Summary Assessment Pt con't to make small gains towards PT and she has progressed towards all goals except FGA score is similar today. Her clinical presentation is complicated given cervical, vestibular and headache issues. She sees ENT on Sunday. Con't PT for vestibular and balance exercises, manual work, relaxation and strengthening as appropriate. Physical Therapy Plan Frequency and Duration Frequency of Treatment 2x/Week Duration of Treatment 8 weeks Plan of Care Start Date 11/07/19 Plan of Care End Date 01/06/20 Therapeutic Interventions Therapeutic Interventions Balance Training,Canalithic Repositioning,Coordination Training,Home Exercise Program ,Manual Therapy,Neuromuscular Re-education,Patient/Caregiver Education,Self-Care/Home Management,Sensory Integration ,Soft Tissue Mobilization, Taping,Therapeutic Exercises, Vestibular Rehabilitation Next Visit Focus/Plan Next Note Type Treatment Note Next Visit Plan Progress ongoing balance, vestibular, relaxation exercises and deep neck flexor strengthening. Consider progressive plank, thoracic mobility Plan of Care Dates Plan of Care Start Date 11/07/19 Plan of Care End Date 01/06/20 Electronically Signed by: Brenna Sanford, PT 11/07/19 0638 Please Sign and Return: I have reviewed this Plan of Care and certify that the skilled therapy services above are required to meet the patient?s needs. Physician Signature Date Printed Name and Credentials Clinical Instructor Signature Printed Name and Credentials
--- NOTE | 2019-11-13 09:01 | PT.OTN ---
Current Diagnoses Sprain of ligaments of cervical spine, initial encounter (11/13/19) Physical Therapy Treatment Note PT-OP-A Visit Information Start: 07/30/19 12:16 Freq: Status: Active Protocol: Document 11/13/19 08:21 MB (Rec: 11/13/19 09:01 MB [id number]) Out-Patient Physical Therapy Visit Information Visit Information Visit Type Treatment Note Visit Start Time 08:21 Visit Stop Time 09:00 Total Visit Minutes 39 Visit Number 10/22 PT-OP-B Current Condition Start: 07/30/19 12:16 Freq: Status: Active Protocol: Document 07/30/19 12:20 MB (Rec: 07/30/19 13:05 MB [id number]) Current Condition History of Current Condition Onset Date 05/01/2018 History of Current Condition Pt went to DO for work-up for migraines. She had high velocity manipulation to her cervical spine and then started having severe neck pain on 05/11/18. She went to the ED and had a pain injection and Oxycontin. She started having vertigo. She did not drive much for 2 months. 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 She has been doing rehab for her neck strength. In May 2018, she started have right hand paresthesia and weakness. She ended up having ulnar nerve transposition 11/26. She then went to OT and got her strength back. She had ablation of C3-7 nerve roots to help with pain relief and increase neck ROM. Her headaches are not better. Her neck ROM is better. She now knows that neck is causing migraines. She is seeing a pain specialist and he performed the ablation 06/02/19. He suggested pt see vestibular PT . Her migraine symptoms are: pressure occiput and wrap up over her head and pull on her brain. She feels her teeth quite often. Her Lyrica was doubled. She has constant SIFUENTES. Pt has nightmares about cracking of joints with relation to her injury. Sleeping is fitful. Bending over makes her the most dizzy. She states that she feels the dizziness when she goes to get back up. She feels like her head gets overpressured. Changing positions can get her. Leaning too far forward is troublesome. She feels like she needs to push herself into something to get tactile sensation. She feels like she needs to get a hold of herself. Pt reports pain rated 2-4 in her right arm and 4-7 in her neck. Jarring in car hurts her . She does report light- headedness. Her eyes feel tired. She had some floaters in the past. She denies hearing changes, tinnitus and dizziness rolling in the bed. She has sinus issues. She reports jaw tightness. She takes a B12 supplement and she had a deficiency. Pt reports she has trust issues with providers after the DO manipulation. She has occ numbness and tingling in right arm. She has shoulder lock-ups. Prior Treatments and Tests OT, PT MRI head and pt reports negative MRI/MRA head and neck with and without contrast Treatment Goals Patient/Caregiver Goals To get better, get back to work PT-OP-C Subjective Start: 07/30/19 12:16 Freq: Status: Active Protocol: Document 11/13/19 08:21 MB (Rec: 11/13/19 09:01 MB [id number]) OP-PT Subjective Patient Comments Patient Comments Pt's son is still sick. The ENT only did a hearing test and will send her to a specialist for full work-up. She states that her hearing is fine. PT-OP-K Range of Motion Start: 07/30/19 12:16 Freq: Status: Active Protocol: Document 07/30/19 12:20 MB (Rec: 07/30/19 16:27 MB [id number]) Cervical Spine Range of Motion Cervical Spine Active Flexion 30 Extension 15 Rotation Left 40 Rotation Right 45 Comments Pt reports 5-6/10 pain with cervical extensio. She presents with left SB posture at rest that increases with left cervical rotation PT-OP-M Strength Start: 07/30/19 12:16 Freq: Status: Active Protocol: Document 07/30/19 12:20 MB (Rec: 07/30/19 16:27 MB [id number]) Shoulder Strength Shoulder Manual Muscle Testing Left Flexion 5 Normal Abduction (C5) 5 Normal Right Flexion 4 Good Abduction (C5) 4 Good Elbow/Forearm Strength Elbow and Forearm Manual Muscle Testing Left Flexion (C6) 5 Normal Extension (C7) 5 Normal Pronation 5 Normal Supination 5 Normal Right Flexion (C6) 5 Normal Extension (C7) 5 Normal Pronation 4 Good Supination 4 Good Wrist Strength Wrist Manual Muscle Testing Left Flexion (C7) 5 Normal Extension (C6) 5 Normal Right Flexion (C7) 5 Normal Extension (C6) 4 Good PT-OP-O Vestibular Start: 07/30/19 16:27 Freq: Status: Active Protocol: Document 07/30/19 12:20 MB (Rec: 07/30/19 16:29 MB [id number]) Vestibular Assessment Visual Testing Smooth Pursuits Horizontal Normal Smooth Pursuits Vertical Normal Saccades Horizontal Normal Gaze Evoked Nystagmus With Fixation Negative Convergence Test Impaired Spontaneous Nystagmus Negative Comments Vestibular Comments Pt denies tinnitus and hearing changes. She does state that she has sinus issues and teeth pain, mostly upper teeth. She states she clenches her jaw. PT-OP-Q Treatments Start: 07/30/19 12:16 Freq: Status: Active Protocol: Document 11/13/19 08:21 MB (Rec: 11/13/19 09:01 MB [id number]) Therapeutic Exercises Standing Exercises Basketball tosses in //bars Comments Pt sunglasses, stepping, increased exercise from wall Fencing with hits up and down and side to side Reps/Minutes 4 sets, 10 hits, small target tip of pool noodle Comments Pt on feet stepping and on blue foam Other Exercises Modified plank on plinth Comments Initiated today PT-OP-T Assessment and Plan Start: 07/30/19 12:16 Freq: Status: Active Protocol: Document 11/13/19 08:21 MB (Rec: 11/13/19 09:01 MB [id number]) Physical Therapy Assessment Rehab Potential Rehabilitation Potential Fair Evaluation Complexity Number of Personal Factors/Comorbidities 3 or More Number of Body Systems Impaired 4 or More Clinical Presentation at Evaluation Unstable Impairments Impairments Activity Tolerance,Balance, Coordination,Pain,Posture,ROM, Strength,Vestibular Other Impairments Decreased affect, inability to perform full work duties, occ difficulty driving d/t symptoms, taking multiple medications. Body systems include musculoskeletal, vestibular, psychosocial, neurological s/p nerve ablation. Her clinical picture is evolving to unstable. Goals Imbalance Rubberizing Mechanic Goal (LTG) Pt will perform Romberg with eyes closed and socks only for at least 30 sec to decrease fall risk by 0. 11/07/2019: LOB posteriorly 2 sec and requires asst to prevent fall. Pt states this is the most difficult exercise . LTG Duration 8 weeks 5 Care Home Goal (LTG) Pt will perform progressive HEP including postural, VOR, intrascapular, core and shoulder strengthening, breathing and relaxation and balance exercises to return to prior active LOF by 01/06/2020 . 11/07/2019: Pt has been performing HEP exercises including racquet ball massage , UE strengthening. She occ does VOR eye chart exercise. LTG Duration 8 weeks 4 Care Home Goal (LTG) Pt will report a 50% improvement in dizziness sxs to decrease fall risk by 2019. 11/07/2019: Pt reports an 10% improvement in dizziness since starting PT. LTG Duration 8 weeks 3 Care Home Goal (LTG) Pt will report a 50% improvement in neck pain to improve cervical ROM with VOR exercises by 01/06/2020. 11/07/2019: Pt reports a 5% improvement in neck pain since starting PT. LTG Duration 8 weeks 2 Rubberizing Mechanic Goal (LTG) Pt will perform WNLs on Functional Gait Index to decrease fall risk by 2019. 11/07/2019:FGA LTG Duration 8 weeks 1 Impairment DHI reflects moderate perception of handicap Rubberizing Mechanic Goal (LTG) Pt will present with an improved DHI score to reflect no more than mild perception of handicap by 01/06/2020. 11/07/2019: DHI score reflects 40%, moderate perception of handicap LTG Duration 8 weeks Assessment Summary Assessment Made neuromuscular exercises more difficult today--no back support, more light in gym area (pt wears sunglasses), hitting small target with pool noodle. Also talked throughout balance work. Initiated gentle planking today to prepare for [employer] fitness test and cervcial and core strength. Physical Therapy Plan Frequency and Duration Frequency of Treatment 2x/Week Duration of Treatment 8 weeks Plan of Care Start Date 11/07/19 Plan of Care End Date 01/06/20 Therapeutic Interventions Therapeutic Interventions Balance Training,Canalithic Repositioning,Coordination Training,Home Exercise Program ,Manual Therapy,Neuromuscular Re-education,Patient/Caregiver Education,Self-Care/Home Management,Sensory Integration ,Soft Tissue Mobilization, Taping,Therapeutic Exercises, Vestibular Rehabilitation Next Visit Focus/Plan Next Note Type Treatment Note Next Visit Plan Progress ongoing balance, vestibular, relaxation exercises and deep neck flexor strengthening. Consider progressive plank, thoracic mobility
--- NOTE | 2019-11-17 08:54 | PT.OTN ---
Current Diagnoses Sprain of ligaments of cervical spine, initial encounter (11/17/19) Physical Therapy Treatment Note PT-OP-A Visit Information Start: 07/30/19 12:16 Freq: Status: Active Protocol: Document 11/17/19 08:17 MB (Rec: 11/17/19 08:53 MB [id number]) Out-Patient Physical Therapy Visit Information Visit Information Visit Type Treatment Note Visit Start Time 08:17 Visit Stop Time 08:47 Total Visit Minutes 30 Visit Number 11/19 PT-OP-B Current Condition Start: 07/30/19 12:16 Freq: Status: Active Protocol: Document 07/30/19 12:20 MB (Rec: 07/30/19 13:05 MB [id number]) Current Condition History of Current Condition Onset Date 05/01/2018 History of Current Condition Pt went to DO for work-up for migraines. She had high velocity manipulation to her cervical spine and then started having severe neck pain on 05/11/18. She went to the ED and had a pain injection and Oxycontin. She started having vertigo. She did not drive much for 2 months. 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 She has been doing rehab for her neck strength. In May 2018, she started have right hand paresthesia and weakness. She ended up having ulnar nerve transposition 11/26. She then went to OT and got her strength back. She had ablation of C3-7 nerve roots to help with pain relief and increase neck ROM. Her headaches are not better. Her neck ROM is better. She now knows that neck is causing migraines. She is seeing a pain specialist and he performed the ablation 06/02/19. He suggested pt see vestibular PT . Her migraine symptoms are: pressure occiput and wrap up over her head and pull on her brain. She feels her teeth quite often. Her Lyrica was doubled. She has constant SIFUENTES. Pt has nightmares about cracking of joints with relation to her injury. Sleeping is fitful. Bending over makes her the most dizzy. She states that she feels the dizziness when she goes to get back up. She feels like her head gets overpressured. Changing positions can get her. Leaning too far forward is troublesome. She feels like she needs to push herself into something to get tactile sensation. She feels like she needs to get a hold of herself. Pt reports pain rated 2-4 in her right arm and 4-7 in her neck. Jarring in car hurts her . She does report light- headedness. Her eyes feel tired. She had some floaters in the past. She denies hearing changes, tinnitus and dizziness rolling in the bed. She has sinus issues. She reports jaw tightness. She takes a B12 supplement and she had a deficiency. Pt reports she has trust issues with providers after the DO manipulation. She has occ numbness and tingling in right arm. She has shoulder lock-ups. Prior Treatments and Tests OT, PT MRI head and pt reports negative MRI/MRA head and neck with and without contrast Treatment Goals Patient/Caregiver Goals To get better, get back to work PT-OP-C Subjective Start: 07/30/19 12:16 Freq: Status: Active Protocol: Document 11/17/19 08:17 MB (Rec: 11/17/19 08:53 MB [id number]) OP-PT Subjective Patient Comments Patient Comments Pt got sick last and then got better. She has not heard about ENT appointment in [place]. PT-OP-K Range of Motion Start: 07/30/19 12:16 Freq: Status: Active Protocol: Document 07/30/19 12:20 MB (Rec: 07/30/19 16:27 MB [id number]) Cervical Spine Range of Motion Cervical Spine Active Flexion 30 Extension 15 Rotation Left 40 Rotation Right 45 Comments Pt reports 5-6/10 pain with cervical extensio. She presents with left SB posture at rest that increases with left cervical rotation PT-OP-M Strength Start: 07/30/19 12:16 Freq: Status: Active Protocol: Document 07/30/19 12:20 MB (Rec: 07/30/19 16:27 MB [id number]) Shoulder Strength Shoulder Manual Muscle Testing Left Flexion 5 Normal Abduction (C5) 5 Normal Right Flexion 4 Good Abduction (C5) 4 Good Elbow/Forearm Strength Elbow and Forearm Manual Muscle Testing Left Flexion (C6) 5 Normal Extension (C7) 5 Normal Pronation 5 Normal Supination 5 Normal Right Flexion (C6) 5 Normal Extension (C7) 5 Normal Pronation 4 Good Supination 4 Good Wrist Strength Wrist Manual Muscle Testing Left Flexion (C7) 5 Normal Extension (C6) 5 Normal Right Flexion (C7) 5 Normal Extension (C6) 4 Good PT-OP-O Vestibular Start: 07/30/19 16:27 Freq: Status: Active Protocol: Document 07/30/19 12:20 MB (Rec: 07/30/19 16:29 MB [id number]) Vestibular Assessment Visual Testing Smooth Pursuits Horizontal Normal Smooth Pursuits Vertical Normal Saccades Horizontal Normal Gaze Evoked Nystagmus With Fixation Negative Convergence Test Impaired Spontaneous Nystagmus Negative Comments Vestibular Comments Pt denies tinnitus and hearing changes. She does state that she has sinus issues and teeth pain, mostly upper teeth. She states she clenches her jaw. PT-OP-Q Treatments Start: 07/30/19 12:16 Freq: Status: Active Protocol: Document 11/17/19 08:17 MB (Rec: 11/17/19 08:53 MB [id number]) Therapeutic Exercises Standing Exercises Thoracic stretch Comments Wall behind, hug over shoulder x 10 reps, doorway hang Other Exercises Sit ups Reps/Minutes 1 rep Comments Pt demos Naval sit-up and hands across shoulders: head lag and SCM engages Child's Pose Comments Walk arms side to side Modified plank on plinth Comments 20 sec arms straight, 30 sec elbows bent Neuro Re-Education Treatment Balance Activities Sage Comments in // bars, stagger-type gait and trouble with speed, tends to look down and not slide hands along // bars right and left x3 reps Feet apart, forward and backward weight shifting Comments 10 reps, much better today when cued to decrease range. Less LOB, only twice, performed with // bars behind her x 1sets Walking over low hurdles onto unstable foam Comments Forward and backwards with hands sliding on // bars: forward no head turns, backward looking right and then to the left x3 reps both PT-OP-T Assessment and Plan Start: 07/30/19 12:16 Freq: Status: Active Protocol: Document 11/17/19 08:17 MB (Rec: 11/17/19 08:53 MB [id number]) Physical Therapy Assessment Rehab Potential Rehabilitation Potential Fair Evaluation Complexity Number of Personal Factors/Comorbidities 3 or More Number of Body Systems Impaired 4 or More Clinical Presentation at Evaluation Unstable Impairments Impairments Activity Tolerance,Balance, Coordination,Pain,Posture,ROM, Strength,Vestibular Other Impairments Decreased affect, inability to perform full work duties, occ difficulty driving d/t symptoms, taking multiple medications. Body systems include musculoskeletal, vestibular, psychosocial, neurological s/p nerve ablation. Her clinical picture is evolving to unstable. Goals Imbalance Refractory Worker Goal (LTG) Pt will perform Romberg with eyes closed and socks only for at least 30 sec to decrease fall risk by . 11/07/2019: LOB posteriorly 2 sec and requires asst to prevent fall. Pt states this is the most difficult exercise . LTG Duration 8 weeks 5 Group Home Goal (LTG) Pt will perform progressive HEP including postural, VOR, intrascapular, core and shoulder strengthening, breathing and relaxation and balance exercises to return to prior active LOF by 01/06/2020 . 11/07/2019: Pt has been performing HEP exercises including racquet ball massage , UE strengthening. She occ does VOR eye chart exercise. LTG Duration 8 weeks 4 Refractory Worker Goal (LTG) Pt will report a 50% improvement in dizziness sxs to decrease fall risk by 2019. 11/07/2019: Pt reports an 10% improvement in dizziness since starting PT. LTG Duration 8 weeks 3 Group Home Goal (LTG) Pt will report a 50% improvement in neck pain to improve cervical ROM with VOR exercises by 01/06/2020. 11/07/2019: Pt reports a 5% improvement in neck pain since starting PT. LTG Duration 8 weeks 2 Refractory Worker Goal (LTG) Pt will perform WNLs on Functional Gait Index to decrease fall risk by 2019. 11/07/2019:FGA LTG Duration 8 weeks 1 Impairment DHI reflects moderate perception of handicap Group Home Goal (LTG) Pt will present with an improved DHI score to reflect no more than mild perception of handicap by 01/06/2020. 11/07/2019: DHI score reflects 40%, moderate perception of handicap LTG Duration 8 weeks Assessment Summary Assessment Thoracic mobility initiated today and pt with increased right shoulder tension. Con't exercise progression. Pt has neck pain and SIFUENTES with exercises today and ice forehead and eyes and heat to neck after treatment. Physical Therapy Plan Frequency and Duration Frequency of Treatment 2x/Week Duration of Treatment 8 weeks Plan of Care Start Date 11/07/19 Plan of Care End Date 01/06/20 Therapeutic Interventions Therapeutic Interventions Balance Training,Canalithic Repositioning,Coordination Training,Home Exercise Program ,Manual Therapy,Neuromuscular Re-education,Patient/Caregiver Education,Self-Care/Home Management,Sensory Integration ,Soft Tissue Mobilization, Taping,Therapeutic Exercises, Vestibular Rehabilitation Next Visit Focus/Plan Next Note Type Treatment Note Next Visit Plan Progress ongoing balance, vestibular, relaxation exercises and deep neck flexor strengthening. Consider progressive plank, thoracic mobility
--- NOTE | 2019-11-20 09:00 | PT.OTN ---
Current Diagnoses Sprain of ligaments of cervical spine, initial encounter (11/20/19) Physical Therapy Treatment Note PT-OP-A Visit Information Start: 07/30/19 12:16 Freq: Status: Active Protocol: Document 11/20/19 08:20 MB (Rec: 11/20/19 09:00 MB [id number]) Out-Patient Physical Therapy Visit Information Visit Information Visit Type Treatment Note Visit Start Time 08:20 Visit Stop Time 09:00 Total Visit Minutes 40 Visit Number 12/20 PT-OP-B Current Condition Start: 07/30/19 12:16 Freq: Status: Active Protocol: Document 07/30/19 12:20 MB (Rec: 07/30/19 13:05 MB [id number]) Current Condition History of Current Condition Onset Date 05/01/2018 History of Current Condition Pt went to DO for work-up for migraines. She had high velocity manipulation to her cervical spine and then started having severe neck pain on 05/11/18. She went to the ED and had a pain injection and Oxycontin. She started having vertigo. She did not drive much for 2 months. 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 She has been doing rehab for her neck strength. In May 2018, she started have right hand paresthesia and weakness. She ended up having ulnar nerve transposition 11/26. She then went to OT and got her strength back. She had ablation of C3-7 nerve roots to help with pain relief and increase neck ROM. Her headaches are not better. Her neck ROM is better. She now knows that neck is causing migraines. She is seeing a pain specialist and he performed the ablation 06/02/19. He suggested pt see vestibular PT . Her migraine symptoms are: pressure occiput and wrap up over her head and pull on her brain. She feels her teeth quite often. Her Lyrica was doubled. She has constant SIFUENTES. Pt has nightmares about cracking of joints with relation to her injury. Sleeping is fitful. Bending over makes her the most dizzy. She states that she feels the dizziness when she goes to get back up. She feels like her head gets overpressured. Changing positions can get her. Leaning too far forward is troublesome. She feels like she needs to push herself into something to get tactile sensation. She feels like she needs to get a hold of herself. Pt reports pain rated 2-4 in her right arm and 4-7 in her neck. Jarring in car hurts her . She does report light- headedness. Her eyes feel tired. She had some floaters in the past. She denies hearing changes, tinnitus and dizziness rolling in the bed. She has sinus issues. She reports jaw tightness. She takes a B12 supplement and she had a deficiency. Pt reports she has trust issues with providers after the DO manipulation. She has occ numbness and tingling in right arm. She has shoulder lock-ups. Prior Treatments and Tests OT, PT MRI head and pt reports negative MRI/MRA head and neck with and without contrast Treatment Goals Patient/Caregiver Goals To get better, get back to work PT-OP-C Subjective Start: 07/30/19 12:16 Freq: Status: Active Protocol: Document 11/20/19 08:20 MB (Rec: 11/20/19 09:00 MB [id number]) OP-PT Subjective Patient Comments Patient Comments Pt tweaked her right arm. She got injections in her traps from her neurologist. PT-OP-K Range of Motion Start: 07/30/19 12:16 Freq: Status: Active Protocol: Document 07/30/19 12:20 MB (Rec: 07/30/19 16:27 MB [id number]) Cervical Spine Range of Motion Cervical Spine Active Flexion 30 Extension 15 Rotation Left 40 Rotation Right 45 Comments Pt reports 5-6/10 pain with cervical extensio. She presents with left SB posture at rest that increases with left cervical rotation PT-OP-M Strength Start: 07/30/19 12:16 Freq: Status: Active Protocol: Document 07/30/19 12:20 MB (Rec: 07/30/19 16:27 MB [id number]) Shoulder Strength Shoulder Manual Muscle Testing Left Flexion 5 Normal Abduction (C5) 5 Normal Right Flexion 4 Good Abduction (C5) 4 Good Elbow/Forearm Strength Elbow and Forearm Manual Muscle Testing Left Flexion (C6) 5 Normal Extension (C7) 5 Normal Pronation 5 Normal Supination 5 Normal Right Flexion (C6) 5 Normal Extension (C7) 5 Normal Pronation 4 Good Supination 4 Good Wrist Strength Wrist Manual Muscle Testing Left Flexion (C7) 5 Normal Extension (C6) 5 Normal Right Flexion (C7) 5 Normal Extension (C6) 4 Good PT-OP-O Vestibular Start: 07/30/19 16:27 Freq: Status: Active Protocol: Document 07/30/19 12:20 MB (Rec: 07/30/19 16:29 MB [id number]) Vestibular Assessment Visual Testing Smooth Pursuits Horizontal Normal Smooth Pursuits Vertical Normal Saccades Horizontal Normal Gaze Evoked Nystagmus With Fixation Negative Convergence Test Impaired Spontaneous Nystagmus Negative Comments Vestibular Comments Pt denies tinnitus and hearing changes. She does state that she has sinus issues and teeth pain, mostly upper teeth. She states she clenches her jaw. PT-OP-Q Treatments Start: 07/30/19 12:16 Freq: Status: Active Protocol: Document 11/20/19 08:20 MB (Rec: 11/20/19 09:00 [id number]) Manual Therapy Treatment Manual Techniques STM B SCM this date Comments Left greater than right tension, MWM with pt performing active cervical rotation, suboccipital release , first rib mobs, upper traps STM, gentle stretch anterior neck, left anterior scalene and SCM distal attachment PT-OP-T Assessment and Plan Start: 07/30/19 12:16 Freq: Status: Active Protocol: Document 11/20/19 08:20 MB (Rec: 11/20/19 09:00 [id number]) Physical Therapy Assessment Rehab Potential Rehabilitation Potential Fair Evaluation Complexity Number of Personal Factors/Comorbidities 3 or More Number of Body Systems Impaired 4 or More Clinical Presentation at Evaluation Unstable Impairments Impairments Activity Tolerance,Balance, Coordination,Pain,Posture,ROM, Strength,Vestibular Other Impairments Decreased affect, inability to perform full work duties, occ difficulty driving d/t symptoms, taking multiple medications. Body systems include musculoskeletal, vestibular, psychosocial, neurological s/p nerve ablation. Her clinical picture is evolving to unstable. Goals Imbalance Customer Solutions Architect Goal (LTG) Pt will perform Romberg with eyes closed and socks only for at least 30 sec to decrease fall risk by . 11/07/2019: LOB posteriorly 2 sec and requires asst to prevent fall. Pt states this is the most difficult exercise . LTG Duration 8 weeks 5 Half-Way Goal (LTG) Pt will perform progressive HEP including postural, VOR, intrascapular, core and shoulder strengthening, breathing and relaxation and balance exercises to return to prior active LOF by 01/06/2020 . 11/07/2019: Pt has been performing HEP exercises including racquet ball massage , UE strengthening. She occ does VOR eye chart exercise. LTG Duration 8 weeks 4 Customer Solutions Architect Goal (LTG) Pt will report a 50% improvement in dizziness sxs to decrease fall risk by 2019. 11/07/2019: Pt reports an 10% improvement in dizziness since starting PT. LTG Duration 8 weeks 3 Customer Solutions Architect Goal (LTG) Pt will report a 50% improvement in neck pain to improve cervical ROM with VOR exercises by 01/06/2020. 11/07/2019: Pt reports a 5% improvement in neck pain since starting PT. LTG Duration 8 weeks 2 Half-Way Goal (LTG) Pt will perform WNLs on Functional Gait Index to decrease fall risk by 2019. 11/07/2019:FGA LTG Duration 8 weeks 1 Impairment DHI reflects moderate perception of handicap Half-Way Goal (LTG) Pt will present with an improved DHI score to reflect no more than mild perception of handicap by 01/06/2020. 11/07/2019: DHI score reflects 40%, moderate perception of handicap LTG Duration 8 weeks Assessment Summary Assessment Consider adding anterior neck stretch future treatments. Manual work today d/t increased tension in left greater than right SCM and pt' s myofascial tension is improved after treatment. Con' t to monitor and treat cervicogenic components to symptoms while progressing exercises to improve balance and VOR function. Ice over eyes and cervical heat after treatment. Physical Therapy Plan Frequency and Duration Frequency of Treatment 2x/Week Duration of Treatment 8 weeks Plan of Care Start Date 11/07/19 Plan of Care End Date 01/06/20 Therapeutic Interventions Therapeutic Interventions Balance Training,Canalithic Repositioning,Coordination Training,Home Exercise Program ,Manual Therapy,Neuromuscular Re-education,Patient/Caregiver Education,Self-Care/Home Management,Sensory Integration ,Soft Tissue Mobilization, Taping,Therapeutic Exercises, Vestibular Rehabilitation Next Visit Focus/Plan Next Note Type Treatment Note Next Visit Plan Progress ongoing balance, vestibular, relaxation exercises and deep neck flexor strengthening. Consider progressive plank, thoracic mobility
--- NOTE | 2019-11-26 10:25 | PT-IP ANOTE ---
Spoke with pt. Will cancel November appointments d/t COVID-19 and keep 12/10/2019 appointment at this time.
--- NOTE | 2019-12-20 11:20 | PT-IP ANOTE ---
PT calls pt and she has been having a cold. This has made her dizzier. She is interested in e-visits if cleared by insurance.
--- NOTE | 2020-01-03 15:32 | PT-OP ANOTE ---
PT calls pt. Pt states that she is having issues with her neck, arm, shoulder and teeth. PT communicates that we do not know yet when clinic will reopen, that clinic hours will be limited to begin with, that therapists and patients will wear masks and that the gym situation will allow for 6 feet between patients. PT does communicate that PT has been providing manual care to patient and so pt and PT will be in nearer proximity. Pt would like to con't with PT including manual work and PT is in agreement.
--- NOTE | 2020-01-27 09:28 | PT-OP ANOTE ---
Pt states that she had two significant events 01/14/2020 and 01/17/2020. She states that she had dystonia, muscle movement and inability to speak well. Her speech is different over the phone. She would like to d/c PT at this time. She had to stop two medications d/t ongoing TICS. Her HAs are worse after medication withdrawl.
--- NOTE | 2020-01-27 09:33 | PT.OPDS ---
Current Diagnoses Sprain of ligaments of cervical spine, initial encounter (11/20/19) Visit Care Team Role Provider Type Pelon Bates MD Primary Care Provider Non-Staff Specialty: Family Practice Address: [address] [place] [address], [id number] Email: Judie Osorio MD Attending Provider Non-Staff Specialty: Medical Address: [address] [place] [address], [id number] Email: Visit Number Visit Number 12/20 Discharge Summary PT-OP-B Current Condition Start: 07/30/19 12:16 Freq: Status: Active Protocol: Document 07/30/19 12:20 MB (Rec: 07/30/19 13:05 MB [id number]) Current Condition History of Current Condition Onset Date 05/01/2018 History of Current Condition Pt went to DO for work-up for migraines. She had high velocity manipulation to her cervical spine and then started having severe neck pain on 05/11/18. She went to the ED and had a pain injection and Oxycontin. She started having vertigo. She did not drive much for 2 months. 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 She has been doing rehab for her neck strength. In May 2018, she started have right hand paresthesia and weakness. She ended up having ulnar nerve transposition 11/26. She then went to OT and got her strength back. She had ablation of C3-7 nerve roots to help with pain relief and increase neck ROM. Her headaches are not better. Her neck ROM is better. She now knows that neck is causing migraines. She is seeing a pain specialist and he performed the ablation 06/02/19. He suggested pt see vestibular PT . Her migraine symptoms are: pressure occiput and wrap up over her head and pull on her brain. She feels her teeth quite often. Her Lyrica was doubled. She has constant SIFUENTES. Pt has nightmares about cracking of joints with relation to her injury. Sleeping is fitful. Bending over makes her the most dizzy. She states that she feels the dizziness when she goes to get back up. She feels like her head gets overpressured. Changing positions can get her. Leaning too far forward is troublesome. She feels like she needs to push herself into something to get tactile sensation. She feels like she needs to get a hold of herself. Pt reports pain rated 2-4 in her right arm and 4-7 in her neck. Jarring in car hurts her . She does report light- headedness. Her eyes feel tired. She had some floaters in the past. She denies hearing changes, tinnitus and dizziness rolling in the bed. She has sinus issues. She reports jaw tightness. She takes a B12 supplement and she had a deficiency. Pt reports she has trust issues with providers after the DO manipulation. She has occ numbness and tingling in right arm. She has shoulder lock-ups. Prior Treatments and Tests OT, PT MRI head and pt reports negative MRI/MRA head and neck with and without contrast Treatment Goals Patient/Caregiver Goals To get better, get back to work PT-OP-C Subjective Start: 07/30/19 12:16 Freq: Status: Active Protocol: Document 11/20/19 08:20 MB (Rec: 11/20/19 09:00 MB [id number]) OP-PT Subjective Patient Comments Patient Comments Pt tweaked her right arm. She got injections in her traps from her neurologist. PT-OP-K Range of Motion Start: 07/30/19 12:16 Freq: Status: Active Protocol: Document 07/30/19 12:20 MB (Rec: 07/30/19 16:27 MB [id number]) Cervical Spine Range of Motion Cervical Spine Active Flexion 30 Extension 15 Rotation Left 40 Rotation Right 45 Comments Pt reports 5-6/10 pain with cervical extensio. She presents with left SB posture at rest that increases with left cervical rotation PT-OP-M Strength Start: 07/30/19 12:16 Freq: Status: Active Protocol: Document 07/30/19 12:20 MB (Rec: 07/30/19 16:27 MB [id number]) Shoulder Strength Shoulder Manual Muscle Testing Left Flexion 5 Normal Abduction (C5) 5 Normal Right Flexion 4 Good Abduction (C5) 4 Good Elbow/Forearm Strength Elbow and Forearm Manual Muscle Testing Left Flexion (C6) 5 Normal Extension (C7) 5 Normal Pronation 5 Normal Supination 5 Normal Right Flexion (C6) 5 Normal Extension (C7) 5 Normal Pronation 4 Good Supination 4 Good Wrist Strength Wrist Manual Muscle Testing Left Flexion (C7) 5 Normal Extension (C6) 5 Normal Right Flexion (C7) 5 Normal Extension (C6) 4 Good PT-OP-O Vestibular Start: 07/30/19 16:27 Freq: Status: Active Protocol: Document 07/30/19 12:20 MB (Rec: 07/30/19 16:29 MB [id number]) Vestibular Assessment Visual Testing Smooth Pursuits Horizontal Normal Smooth Pursuits Vertical Normal Saccades Horizontal Normal Gaze Evoked Nystagmus With Fixation Negative Convergence Test Impaired Spontaneous Nystagmus Negative Comments Vestibular Comments Pt denies tinnitus and hearing changes. She does state that she has sinus issues and teeth pain, mostly upper teeth. She states she clenches her jaw. PT-OP-T Assessment and Plan Start: 07/30/19 12:16 Freq: Status: Active Protocol: Document 01/27/20 09:31 MB (Rec: 01/27/20 09:33 MB [id number]) Physical Therapy Plan Discharge Physical Therapy Discharge Reasons Change in Medical Status Discharge Comments Pt with two medical events of dystonia, inability to speak, muscle twitching. She went to the ED twice. She will follow- up with her doctor before starting PT again.
== END 2020-01-27 09:41 | disposition home or self-care (01) ==
LOC: PHYS 08:15
PROVIDERS: PCP General Practice; Visit Provider Family Medicine
DX: S13.4XXA Sprain of ligaments of cervical spine, initial encounter (principal)
CPT/HCPCS: 97110; 97112; 97140; 97163; 97530; 97535

== ENCOUNTER 2020-01-14 20:38 | Emergency (ER) | payer OTHER, SELFPAY ==
[2020-01-14 20:10] VITALS: BP 131/80; PULSE 67; RESP 16; TEMP 36.1; O2SAT 99; BMI 28.0
[2020-01-14 20:50] LABS: Add Manual Diff / Slide Review NO; Basophils Absolute Auto 0 /uL (0-100); Basophils Percent Auto 0.6 % (0-2); Eosinophils Absolute Auto 0 /uL (0-450); Eosinophils Percent Auto 0.4 % (2-4); Hematocrit 41.8 % (36-46); Hemoglobin 14.4 g/dL (12.0-16.0); Lymphocytes Absolute Auto 1400 /uL (1100-4500); Lymphocytes Percent Auto 16.4 % (25-40); Mean Corpuscular HGB Conc 34.3 % (30-36); Mean Corpuscular Hemoglobin 31.6 PG (26-34); Mean Corpuscular Volume 92.1 fL (80-100); Monocytes Absolute Auto 500 /uL (0-900); Monocytes Percent Auto 5.8 % (3-14); Neutrophils Absolute Auto 6600 /uL (1500-7000); Neutrophils Percent Auto 76.8 % (50-75); Platelet Count 272 X10^3/uL (150-400); Red Blood Cell Count 4.54 X10^6/uL (4.0-5.2); Red Cell Distribution Width 13.6 % (11.6-14.8); White Blood Cell Count 8.6 X10^3/uL (4.5-11.0)
[2020-01-14 21:01] LABS: BUN Creatinine Ratio 30.8 (6-22); Blood Urea Nitrogen 20 mg/dL (7-17); Calcium 9.7 mg/dL (8.4-10.2); Carbon Dioxide 21 mmol/L (22-32); Chloride 104 mmol/L (98-107); Estimated Glomerular Filt Rate > 60.0 mL/min (>60); Glucose 126 mg/dL (70-100); HEMOLYSIS 30 (0-50); Potassium 3.9 mmol/L (3.4-5.1); Sodium 138 mmol/L (137-145)
[2020-01-14] MEDS: BENZTROPINE 2 MG/2 ML AMPUL 1 MG IV (21:13)
[2020-01-14 22:07] VITALS: BP 114/75; PULSE 91; RESP 19; O2SAT 99
[2020-01-14 22:36] VITALS: BP 116/57
--- NOTE | 2020-01-15 06:36 | ED_ITS ---
HPI - Neuro Symptoms/Deficit General Chief Complaint: Neuro Symptoms/Deficit Stated Complaint: involuntary shaking Time Seen by Provider: 01/14/20 20:37 Source: patient and EMS Mode of arrival: EMS Limitations: no limitations History of Present Illness HPI Narrative: 44-year-old female nonsmoker with extensive list of neurologic problems since a musculoskeletal neck adjustment apparently went wrong a few years ago and resulted in various neuropathies presents with uncontrollable shaking that started about an hour prior to her arrival. She denies any new medications or dietary change. She has never had this condition before and is fully alert during her shaking. She has no pain, fever nor nausea or vomiting. She presents by EMS for evaluation Onset (ago): hour(s) Severity: moderate Relieving factors: none Exacerbating factors: none Context: gradual onset On Anticoagulants: No Associated symptoms: denies other symptoms Review of Systems Constitutional Constitutional: Denies chills, Denies fatigue, Denies fever(s), Denies frequent falls, Denies lethargy and Denies weakness Eyes Eyes: Denies change in vision, Denies eye discharge, Denies irritation and Denies loss of vision ENT Ears, Nose, Mouth, and Throat: Denies change in voice, Denies dizziness, Denies neck pain, Denies sore throat and Denies throat swelling Cardiovascular Cardiovascular: Denies chest pain, Denies irregular heart rhythm, Denies lightheadedness, Denies palpitations, Denies dyspnea, Denies dyspnea on exertion and Denies orthopnea Respiratory Respiratory: Denies cough, Denies dyspnea, Denies dyspnea on exertion and Denies wheezing Gastrointestinal Gastrointestinal: Denies abdominal pain, Denies change in bowel habits, Denies diarrhea, Denies nausea and Denies vomiting Genitourinary Genitourinary: Denies hematuria, Denies flank pain, Denies urinary incontinence and Denies urinary urgency Musculoskeletal Musculoskeletal: Denies back pain, Denies muscle weakness, Denies neck pain, Denies numbness and Denies tingling Integumentary/Breasts Skin/Breast: Denies pruritus, Denies erythema, Denies rash and Denies wounds Neurologic Neurologic: Denies behavioral changes, Denies confusion, Denies dizziness, Denies frequent falls, Denies loss of vision, Denies numbness, Reports convulsions, Denies tingling and Denies weakness Psychiatric Psychiatric: Denies anxiety, Denies behavioral changes, Denies confusion, Denies depression, Denies homicidal ideation and Denies suicidal ideation Endocrine Endocrine: Denies fatigue, Denies flushing and Denies palpitations Hematologic/Lymphatic Hematologic/Lymphatic: Denies easy bruising Allergic/Immunologic Allergic/Immunologic: Denies urticaria, Denies throat swelling and Denies wheezing Patient History Social History Smoking Status: Never smoker Smoking Status: Never smoker Substance Use Type: does not use Exam Narrative Exam Narrative: GENERAL: [44] year old patient appears stated age. Well- nourished, well-developed patient, in mild distress. dystonic type movements, patient is alert and in no suggestion of pain HEAD: Atraumatic. Normocephalic. EYES: Pupils equal round and reactive. Extraocular motions intact. No scleral icterus. No injection or drainage. ENT: Nose without bleeding, purulent drainage. Throat without erythema, tonsillar hypertrophy or exudate. Airway patent. NECK: Trachea midline. Non tender CARDIOVASCULAR: Regular rate and rhythm without murmurs, gallops, or rubs. RESPIRATORY: Clear to auscultation. Breath sounds equal bilaterally. No wheezes, rales, or rhonchi. GASTROINTESTINAL: Abdomen soft, non-tender, nondistended. EXTREMITIES: No edema or joint tenderness. BACK: Nontender without deformity or crepitance. No flank tenderness. NEURO: AOx3. SKIN: No rash or erythema of visible areas Initial Vital Signs Initial Vital Signs: Vital Signs Temperature 97 F L 01/14/20 20:10 Pulse Rate 67 01/14/20 20:10 Respiratory Rate 16 01/14/20 20:10 Blood Pressure 131/80 01/14/20 20:10 Pulse Oximetry 99 01/14/20 20:10 Course Course Course Narrative: Patient has complete resolution of symptoms within 1 hour of administration of Cogentin. She takes no antipsychotics but has been on duloxetine and phentermine, both of which can have dystonic reactions. Other diagnoses such as seizure or rigors considered but thought less likely given her history, physical and response to Cogentin. Extensive discussion with patient and family regarding need for close follow-up with her primary care providers before making any changes in her chronic medications. She has been given return precautions and has had her questions answered to her apparent satisfaction Orders Ordered: Discontinued Medications Benztropine Mesylate (Cogentin) 1 mg IV NOW ONE Stop: 01/14/20 20:41 Last Admin: 01/14/20 21:13 Dose: 1 mg Documented by: HAYDEN MDM - Neuro Symptoms/Deficit Lab Data Result diagrams: 01/14/20 20:40 01/14/20 20:40 Labs: Lab Results 01/14/20 01/14/20 01/14/20 Range/Units 20:40 20:40 Unknown WBC 8.6 (4.5-11.0) X10^3/uL RBC 4.54 (4.0-5.2) X10^6/uL Hgb 14.4 (12.0-16.0) g/dL Hct 41.8 (36-46) % MCV 92.1 (80-100) fL MCH 31.6 (26-34) PG MCHC 34.3 (30-36) % RDW 13.6 (11.6-14.8) % Plt Count 272 (150-400) X10^3/uL Neut % (Auto) 76.8 H (50-75) % Lymph % (Auto) 16.4 L (25-40) % [place] % (Auto) 5.8 (3-14) % Eos % (Auto) 0.4 L (2-4) % Baso % (Auto) 0.6 (0-2) % Neut # (Auto) 6600 (7998-5685) /uL Lymph # (Auto) 1400 (4357-4396) /uL [place] # (Auto) 500 (0-900) /uL Eos # (Auto) 0 (0-450) /uL Baso # (Auto) 0 (0-100) /uL Sodium 138 (137-145) mmol/L Potassium 3.9 (3.4-5.1) mmol/L Chloride 104 (98-107) mmol/L Carbon Dioxide 21 L (22-32) mmol/L BUN 20 H (7-17) mg/dL Creatinine 0.65 (0.52-1.04) mg/dL Estimated GFR > 60.0 (>60) mL/min BUN/Creatinine Ratio 30.8 H (6-22) Glucose 126 H (70-100) mg/dL Calcium 9.7 (8.4-10.2) mg/dL U Opiates 300ng/mL cut Cancelled Ur Oxycodone Screen Cancelled Urine Methadone Screen Cancelled Ur Barbiturates Screen Cancelled U Tricyclic Antidepress Cancelled Ur Phencyclidine Scrn Cancelled Ur Amphetamines Screen Cancelled U Methamphetamines Scrn Cancelled Ur MDMA Scrn (Ecstasy) Cancelled U Benzodiazepines Scrn Cancelled Urine Cocaine Screen Cancelled U Marijuana (THC) Screen Cancelled Urine Dip Bedside Urine Glucose Negative Bedside Urine Bilirubin - Negative Bedside Urine Ketone - Negative Urine Specific [place] 1.015 Bedside Urine Occult Blood - Negative Bedside Urine pH 6.5 Bedside Urine Protein - Negative Bedside Urine Urobilinogen - Negative Bedside Urine Nitrite - Negative Bedside Urine Leukocytes - Negative Esterase Discharge Plan Departure Patient Disposition: Home Clinical Impression: Dystonia Discharge Date/Time: 01/14/20 22:40 Instructions: DI for Adverse Drug Reaction -- Other Activity Restrictions/Additional Instructions: *You have been diagnosed with [acute dystonic reaction, likely to a combination of your routine medications] *What to do: *Take medications as directed: For recurrence of symptoms please feel free to return, you may also consider Benadryl at home *Follow up with your primary care provider as soon as possible, call for an appointment. Let them know you were seen in the Emergency Department and that we ask that you be seen in follow up *Return to ER if you should have any new, worsening or concerning symptoms
== END 2020-01-14 22:40 | disposition home or self-care (01) ==
PROVIDERS: Emergency Provider Emergency Medicine
DX: G24.9 Dystonia, unspecified (principal)
CPT/HCPCS: 36415; 80048; 81003; 85025; 96374; 99284; J0515

== ENCOUNTER 2020-01-17 18:39 | Emergency (ER) | payer OTHER, SELFPAY ==
[2020-01-17 18:46] VITALS: BP 121/71; PULSE 108; RESP 24; O2SAT 98
--- NOTE | 2020-01-17 18:55 | ED.RECABL ---
HPI - Recheck/Abnormal Lab/Rx General Chief Complaint: Recheck/Abnormal Lab/Rx Stated Complaint: Benadryl Time Seen by Provider: 01/17/20 18:43 Source: patient and EMS Mode of arrival: EMS Limitations: no limitations History of Present Illness HPI narrative: Patient is a 44-year-old female here for evaluation of dystonic reactions. She was seen here in the emergency department a couple days ago for the same reactions. According to that note the concern was that her duloxetine or Lyrica were potentially causing her issues. She was given Cogentin IV which resolved all of her symptoms. Was discharged home. Since that time she has talk with her primary provider and also mental health provider. They did crease her duloxetine from 1 pill 2 times a day to just 1 pill a day. She states that she took her Lyrica this morning. She states she potentially felt a little shaky afterwards however was not until after she took the duloxetine later in the afternoon that she started having the same symptoms she had full days ago. She did take Benadryl without any improvement or just minimal improvement. She arrived by EMS for evaluation. Related Data Home Medications Medication Instructions Recorded Confirmed acetaminophen 325 mg tablet 325 mg PO ONCE PRN 10/21/19 10/21/19 duloxetine 30 mg capsule,delayed 30 mg PO BID 10/21/19 10/21/19 release sprinkle pregabalin 150 mg capsule 150 mg PO TID 10/21/19 10/21/19 rizatriptan 10 mg tablet 10 mg PO ONCE 10/21/19 10/21/19 Allergies Allergy/AdvReac Type Severity Reaction Status Date / Time cyclobenzaprine AdvReac Unknown heart Verified 01/17/20 19:09 racing Review of Systems Constitutional Constitutional: Denies frequent falls and Denies headache(s) ENT Ears, Nose, Mouth, and Throat: Denies headache(s) Cardiovascular Cardiovascular: Denies chest pain and Denies dyspnea Respiratory Respiratory: Denies dyspnea Integumentary/Breasts Skin/Breast: Denies lesions and Denies rash Neurologic Neurologic: Denies confusion, Denies frequent falls and Denies headache(s) Comments: ?Dystonia ?reactions, Psychiatric Psychiatric: Denies anxiety, Denies confusion, Denies depression and Denies panic attacks Patient History Medical History History of neck injury (Chronic) Family History Family/Other Snoring Excessive sleepiness Diabetes mellitus Heart disease Dementia Alcohol abuse Mother Sleep apnea Excessive sleepiness Obesity Hypertension Family/Other Obesity Hypertension Heart disease Alcohol abuse Substance abuse Other No pertinent family history Social History Smoking Status: Never smoker Smoking Status: Never smoker alcohol intake frequency: 0-2 drinks per day Substance Use Type: does not use Exam Initial Vital Signs Initial Vital Signs: Vital Signs Pulse Rate 108 H 01/17/20 18:46 Respiratory Rate 24 01/17/20 18:46 Blood Pressure 121/71 01/17/20 18:46 Pulse Oximetry 98 01/17/20 18:46 Const General: cooperative and healthy appearing Limitations: mental status not altered HENMT Head: normal to inspection and normocephalic Resp Effort & Inspection: normal respiratory effort Cardio Rate: regular rate Skin Lesions: no lesions Rashes: no rashes Neuro General: alert, awake and oriented x3 Speech: speech normal Other: Patient with full body shaking. Extrem General: capillary refill normal Psych Appearance: well kempt Course Orders Ordered: Discontinued Medications Benztropine Mesylate (Cogentin) 1 mg PO NOW ONE Stop: 01/17/20 18:46 Last Admin: 01/17/20 19:10 Dose: Not Given Documented by: NAYELI Benztropine Mesylate (Cogentin) 1 mg IV NOW ONE Stop: 01/17/20 19:05 Last Admin: 01/17/20 19:40 Dose: 1 mg Documented by: EDY Lorazepam (Ativan) 1 mg IV NOW ONE Stop: 01/17/20 19:08 Last Admin: 01/17/20 20:21 Dose: Not Given Documented by: NAYELI Vital Signs Vital signs: Vital Signs - 8 hr 01/17/20 18:46 01/17/20 19:45 01/17/20 21:02 Pulse Rate 108 H 70 69 Respiratory Rate 24 16 Blood Pressure 121/71 Blood Pressure [Left Arm] 121/89 108/62 Pulse Oximetry 98 98 96 MDM - Recheck/Abnormal Lab/Rx MDM Narrative Medical decision making narrative: After dose of Cogentin patient's symptoms completely resolved. Her physical exam and presentation is not consistent with seizure. I do suspect that it is the duloxetine that is causing her symptoms. I discussed this with her. Will have her not take her dose of duloxetine tomorrow and on Sunday however contact her mental health provider to discuss further medication management. She has Benadryl at home. Did discuss return precautions. Patient is okay with going home. Discharge Plan Departure Patient Disposition: Home Clinical Impression: Dystonia Discharge Date/Time: 01/17/20 21:29 Activity Restrictions/Additional Instructions: I do recommend that you do not take the duloxetine tomorrow and contact your primary care provider on Sunday about further instructions. Return to the emergency department for any new or worsening symptoms Prescriptions: No Action pregabalin [Lyrica] 150 mg capsule 150 mg PO TID RF: 0 duloxetine 30 mg capsule, delayed rel sprinkle 30 mg PO BID RF: 0 rizatriptan [Maxalt] 10 mg tablet 10 mg PO ONCE RF: 0 acetaminophen [Tylenol] 325 mg tablet 325 mg PO ONCE PRNRF: 0 Referrals: Pelon Bates MD [Primary Care Provider] -
[2020-01-17] MEDS: BENZTROPINE 2 MG/2 ML AMPUL 1 MG IV (19:40)
[2020-01-17 19:45] VITALS: BP 121/89; PULSE 70; O2SAT 98
--- NOTE | 2020-01-17 20:19 | PC.NURSE ---
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
[2020-01-17 21:02] VITALS: BP 108/62; PULSE 69; RESP 16; O2SAT 96
== END 2020-01-17 21:29 | disposition home or self-care (01) ==
PROVIDERS: Emergency Provider Emergency Medicine; PCP General Practice
DX: G24.9 Dystonia, unspecified (principal)
CPT/HCPCS: 36415; 96374; 99284; J0515